=== PATIENT | female | born 1960 | race Caucasian/White ===

== ENCOUNTER 2017-08-04 00:26 | Observation (INO) ==
[2017-08-04 01:15] LABS: Basophils # 0.1 K/mcL (0.0-0.2); Basophils % 0.8 %; Eosinophils # 0.2 K/mcL (0.0-0.6); Eosinophils % 3.3 %; Hematocrit 37.4 % (35.3-44.9); Hemoglobin 12.8 g/dL (11.5-15.4); Immature Granulocytes % 0.4 % (0-4); Lymphocytes % 40.3 %; Mean Corpuscular HGB Conc 34.2 g/dL (31.6-35.5); Mean Corpuscular Hemoglobin 31.1 pg (28.0-33.3); Mean Platelet Volume 9.7 fL (9.4-12.4); Monocytes # 0.5 K/mcL (0.0-1.3); Monocytes % 6.9 %; Neutrophils # 3.5 K/mcL (1.6-8.9); Platelet Count 245 K/mcL (140-400); Red Blood Count 4.11 M/mcL (3.82-4.97); Segmented Neutrophils % 48.3 %
[2017-08-04 01:26] LABS: BUN/Creatinine Ratio 12 (6-26); Blood Urea Nitrogen 12 mg/dL (7-20); Calcium 8.8 mg/dL (8.6-10.8); Carbon Dioxide 20 mEq/L (19-29); Chloride 110 mEq/L (98-109); Glucose 94 mg/dL (70-99); Osmolality,Calculated 290 (280-300); Potassium 3.5 mEq/L (3.5-4.5); Sodium 140 mEq/L (136-145); eGFR For African Americans > 60 (> 60); eGFR For Non-African Americans 59 (> 60)
--- NOTE | 2017-08-04 02:11 | Emergency Department Note ---
Disposition Clinical Impression: Elevated troponin, Chest pain Disposition: Admitted As Inpatient Chest Pain HPI - General Chief Complaint: ED Chest Pain Stated Complaint: "CP/Anxiety/ Shot Himself Yesterday" Time Seen by Provider: 08/04/17 02:09 Source: patient Limitations: no limitations Vital Signs Reviewed: Yes Nursing Notes Reviewed: Yes - History of Present Illness HPI Narrative: Mrs. cAosta, a 57yo female, presents from home for evaluation of chest pain. Onset one hour prior to arrival. Described as midsternal shortness with heaviness. Nonradiating. With mild dyspnea. No associated nausea or diaphoresis. Patient experienced his symptoms while sorting through her 's belongings; he committed suicide by gunshot 2 days ago. She is originally from the [facility] and here locally to help manage his belongings. Symptoms were unrelieved by 3 tablets nitroglycerine at home. Patient is unsure how many minutes between tablets. PMH: Congestive heart failure, CAD without ACS, hyperlipidemia, hypothyroidism, GERD , COPD, anxiety, restless leg syndrome Severity scale (1-10): 8 - Related Data Home Medications Medication Instructions Recorded Confirmed Chantix 05/25/15 05/26/15 Aspirin 81 mg PO DAILY 05/26/15 05/26/15 Butalb/Acetaminophen/Caffeine 1 mg PO DAILY PRN 05/26/15 05/26/15 [Fioricet 50-300-40 mg Capsule] Carvedilol [Coreg] 3.125 mg PO BIDWM 05/26/15 05/26/15 Citalopram Hydrobromide [Celexa] 20 mg PO DAILY 05/26/15 05/26/15 Digoxin [Lanoxin] 0.125 mg PO DAILY 05/26/15 05/26/15 Gabapentin [Neurontin] 900 mg PO HS 05/26/15 05/26/15 LORazepam [Ativan] 0.25 mg PO DAILY 05/26/15 05/26/15 Levalbuterol Neb [Xopenex Neb] 45 inh PO 4XW PRN 05/26/15 05/26/15 Lipitor 10 mg PO DAILY 05/26/15 05/26/15 Methocarbamol [Robaxin] 750 mg PO Q8HR 05/26/15 05/26/15 Omeprazole [PriLOSEC] 20 mg PO DAILY 05/26/15 05/26/15 Ondansetron [Zofran] 4 mg PO Q4HR PRN 05/26/15 05/26/15 Ropinirole [Requip] 3 mg PO DAILY 05/26/15 05/26/15 Sucralfate [Carafate] 1 gm PO BID 05/26/15 05/26/15 Tiotropium [Spiriva] 18 inh PO DAILY 05/26/15 05/26/15 Torsemide [Demadex] 10 mg PO DAILY PRN 05/26/15 05/26/15 Levothyroxine Sodium [Tirosint] 50 mcg PO DAILY 08/04/17 08/04/17 Previous Rx's Medication Instructions Recorded Lisinopril [Zestril] 2.5 mg PO DAILY #30 tablet 05/26/15 Allergies Allergy/AdvReac Type Severity Reaction Status Date / Time acetaminophen [From Vicodin] Allergy Migraine Verified 05/25/15 10:40 Amoxicillin [From Augmentin] Allergy Diarrhea Verified 05/25/15 10:40 cephalexin [From Keflex] Allergy Hives Verified 05/25/15 10:40 clavulanic acid Allergy Diarrhea Verified 05/25/15 10:40 [From Augmentin] codeine Allergy Abdominal Verified 05/25/15 10:40 Pain hydrocodone [From Vicodin] Allergy Migraine Verified 05/25/15 10:40 levofloxacin [From Levaquin] Allergy Diarrhea Verified 05/25/15 10:40 Sulfa (Sulfonamide Allergy Hives Verified 05/25/15 10:40 Antibiotics) Tetracycline Allergy Hives Verified 05/25/15 10:40 NSAIDS (Non-Steroidal AdvReac See Verified 08/29/15 03:43 Anti-Inflamma Comments Opioids - Morphine Analogues AdvReac Rash Verified 05/25/15 10:40 emycin Allergy Abdominal Uncoded 05/25/15 10:40 Pain tape Allergy Rash Uncoded 05/25/15 10:40 All systems ED: reviewed and negative except as stated. Review of Systems: As Per HPI Chest Pain PMH - Past Medical History Medical history: Reports: arthritis, cancer, CHF, COPD, fibromyalgia, GERD, hyperlipidemia, hypertension, migraine, thyroid disease Reports: Other (Mitral regurgitation) Surgical history: Reports: appendectomy, breast surgery, , cancer surgery, cholecystectomy, hysterectomy Psychiatric history: Reports: anxiety, ADHD, depression - Social History Smoking Status: Light tobacco smoker Alcohol use: Reports: none Drug use: Reports: none Physical Exam Vital Signs Reviewed General: Patient is alert, oriented, and in moderate distress; she is clutching her chest and tearful as she begins discussing her without prompting. HEENT: No facial asymmetry. Head is normocephalic and atraumatic. PERRL, EOMI. mucosa moist. Trachea midline. Cardiovascular: Heart regular rate and rhythm without clicks, rubs, gallops, or murmurs. No JVD. PMI nondisplaced. Pedal edema. Bilateral radial and posterior tibial pulses 2/44. Respiratory: Symmetric chest rise with poor respiratory effort. Prolonged expiratory phase. Bilateral breath sounds are clear without wheezing, crackles , or rhonchi. Abdomen: Bowel sounds present normoactive x-4 quadrants. Abdomen is soft, nondistended, and nontender. Skin: Warm, dry, intact. Psych: Patient is tearful and affect is appropriate for situation. - General Limitations: no limitations General appearance: alert, in no apparent distress Course Course Narrative: Patient's history and story are concerning for ACS. Perform chest pain workup. EKG does not show any ST changes. Troponin is elevated at 0.05. She has no history of kidney disease and has normal renal function on lab work today. Chest x-ray is unremarkable. Will provide patient with her home medications as well as provide aspirin and Lovenox. After discussing the situation with the patient, she agrees to admission for continued evaluation and management. I discussed the patient with the admitting hospitalist, Dr. Rodriguez who agrees to accept the patient. Vital Signs Temperature 97.6 F 08/04/17 00:29 Pulse Rate 73 08/04/17 00:29 Respiratory Rate 20 08/04/17 00:29 Blood Pressure 123/69 08/04/17 00:29 O2 Sat by Pulse Oximetry 98 08/04/17 00:29 Temperature 98.1 F 08/04/17 03:29 Pulse Rate 63 08/04/17 03:29 Respiratory Rate 14 08/04/17 03:29 Blood Pressure 117/62 08/04/17 03:29 O2 Sat by Pulse Oximetry 96 08/04/17 03:29 Oxygen Delivery Oxygen Delivery Room Air Chest Pain - Lab Data Lab results reviewed: Yes I reviewed the patient's lab results. Result diagrams: 08/04/17 01:01 08/04/17 01:01 Lab Results 08/04/17 08/04/17 08/04/17 Range/Units 01:01 01:01 01:01 WBC 7.3 (4.3-11.1) K/mcL RBC 4.11 (3.82-4.97) M/mcL Hgb 12.8 (11.5-15.4) g/dL Hct 37.4 (35.3-44.9) % MCV 91.0 (83.0-100.0) fL MCH 31.1 (28.0-33.3) pg MCHC 34.2 (31.6-35.5) g/dL RDW 13.0 (11.5-14.5) % Plt Count 245 (140-400) K/mcL MPV 9.7 (9.4-12.4) fL Immature Gran % 0.4 (0-4) % Seg Neutrophils % 48.3 % Lymphocytes % 40.3 % Monocytes % 6.9 % Eosinophils % 3.3 % Basophils % 0.8 % Neutrophils # 3.5 (1.6-8.9) K/mcL Lymphocytes # 3.0 (0.6-4.6) K/mcL Monocytes # 0.5 (0.0-1.3) K/mcL Eosinophils # 0.2 (0.0-0.6) K/mcL Basophils # 0.1 (0.0-0.2) K/mcL Sodium 140 (136-145) mEq/L Potassium 3.5 (3.5-4.5) mEq/L Chloride 110 H (98-109) mEq/L Carbon Dioxide 20 (19-29) mEq/L BUN 12 (7-20) mg/dL Creatinine 0.97 (0.57-1.11) mg/dL Est GFR ( Amer) > 60 (> 60) Est GFR (Non-Af Amer) 59 L (> 60) BUN/Creatinine Ratio 12 (6-26) Glucose 94 (70-99) mg/dL Calculated Osmolality 290 (280-300) Calcium 8.8 (8.6-10.8) mg/dL Troponin I 0.05 H* (0-0.03) ng/mL - Radiology Data Radiology results reviewed: Yes I reviewed the patient's radiology results. - EKG Data EKG attestation: Yes I reviewed and interpreted this EKG. EKG results narrative: EKG dated 04 August at 00:46 interpreted as sinus rhythm with rate of 70. Normal intervals. Normal axis. T-wave flattening in precordial leads not present on comparative EKG. Isolated T-wave inversion in V1 present on comparative EKG. Compared to previous dated 08/18/2015 showing sinus bradycardia; no acute ischemic changes of comparison. Heart Score - Score History: Highly Suspicious EKG: Non Specific repolarisation Disturbance Age: 45-65 Risk Factors: Equal/Greater than 3 risk factor or history of atherosclerotic disease Troponin: 1-3x normal limit HEART Score Total: 7 Attestation Statement - Attestation Attestation: I, Derrick Bertrand MD, personally evaluated this patient and discussed their management with the resident physician. I reviewed the resident's note and agree with the documented findings, medical decision making, and plan of care. 57-year-old female presents to the emergency department with a complaint of substernal and left-sided chest pain that started about an hour prior to arrival. She describes the pain as a dull pressure ache in her chest. The pain radiates to the left arm. She admits to some shortness of breath and diaphoresis with the pain. She denies any prior history of DE does have a history of heart problems. Patient has been under a lot of stress because she states her committed suicide 2 days ago. On examination patient is a well-developed well-nourished well-appearing female in no acute distress. She is alert and oriented 3. There is no cyanosis or diaphoresis. There is some tenderness to palpation over the anterior chest wall. Breath sounds are clear and equal bilaterally. Heart regular rate and rhythm. Abdomen is soft and nontender with normal bowel sounds. EKG shows a normal sinus rhythm with nonspecific T-wave changes. No acute ST elevations or depressions. Chest x-ray negative. Labs reviewed. Troponin 0.05. The hospitalist, Dr. Rordiguez, was consulted and accepted admission of the patient.
[2017-08-04] MEDS ORDERED: Aspirin 81 MG TAB.CHEW PO ONE (02:19)
[2017-08-04] MEDS ORDERED: *HR* HYDROmorphone (PF) 1 MG/ML SYRINGE IVP ONE (02:19)
[2017-08-04] MEDS ORDERED: *HR* Enoxaparin 80 MG/0.8 ML SYRINGE SQ STA (02:19)
[2017-08-04] MEDS: Nitroglycerin 0.4 MG TAB.SUBL SL PRN ×3 (02:43→18:41)
[2017-08-04] MEDS: *HR* LORazepam 1 MG TABLET PO ONE ×2 (02:43→03:45)
[2017-08-04] MEDS ORDERED: Naloxone 0.4 MG/ML INJ IVP PRN (03:00)
--- NOTE | 2017-08-04 03:22 | Internal Med History&Physical ---
Date of Encounter: 08/04/17 Time of Encounter: 03:19 Assessment and Plan (1) Chest pain Current visit: Yes Status: Acute Patient has no history of CAD, she had left heart catheterization in 05/2015 which reported the following; left main, left anterior descending, 1st diagonal , circumflex, 1st marginal, left PDA, right coronary, right PDA arteries were all angiographically free of disease, she now comes in with chest pain in the setting of recent awful news of her 's suicide and , EKG was unchanged, troponin was slightly elevated, there is concern here for stress cardiomyopathy based on her history, we will cycle troponin, check 2D echo was wall motion abnormalities and proceed from there Qualifiers: Chest pain type: precordial pain Qualified Code(s): R07.2 - Precordial pain (2) Elevated troponin Current visit: Yes Status: Acute since 2014 she has had troponin of 0.04 and now has 0.05, which is very marginal elevation, could be, will trend and follow Echo (3) Hypertension Current visit: Yes Status: Chronic normotensive on presentation, will continue her home antihypertensives and monitor BP Qualifiers: Hypertension type: essential hypertension Qualified Code(s): I10 - Essential (primary) hypertension (4) COPD (chronic obstructive pulmonary disease) Current visit: Yes Status: Chronic stable, will do PRN nebs in addition to her tiotropium, Qualifiers: COPD type: emphysema Emphysema type: panlobular Qualified Code(s): J43.1 - Panlobular emphysema (5) GERD (gastroesophageal reflux disease) Current visit: Yes Status: Chronic continue PPI Qualifiers: Esophagitis presence: without esophagitis Qualified Code(s): K21.9 - Gastro -esophageal reflux disease without esophagitis (6) Hypothyroidism Current visit: Yes Status: Chronic continue home synthroid dosage Qualifiers: Hypothyroidism type: acquired Qualified Code(s): E03.9 - Hypothyroidism, unspecified (7) Major depression Current visit: Yes Status: Chronic baseline depression which is being made worse with the suicide and of her , she is not suicidal or homicidal, when offered pastoral and psychiatry services she opted for pastoral, we will get that for her and continue her home regimen Qualifiers: Major depression recurrence: recurrent Active/Remission status: currently active Major depression episode severity: moderate Qualified Code(s): F33.1 - Major depressive disorder, recurrent, moderate Internal Medicine - H&P: HPI Chief complaint: Chest pain Admitted From: Emergency Dept Plans for Post Hospital Care: Home History of present illness: Ms. Acosta is a 57 year old female with a history of cardiomyopathy with LVEF of 35% with [facility] finding of clean coronaries in 2015 comes in with chest pain. She reported that she was at rest in a chair prior to presentation when she began experiencing chest pain, substernal in location, pressure like in character and constant in timing, it was 8/10 in severity. Pain radiated to her left arm associated with tingling sensation in the hand. Chest pain was made worse by exertion but nothing could relieve it even after taking 3 sublingual tablets. She reports associated diaphoresis, lightheadedness, dyspnea, palpitations, and nausea. She however denies feeling of apprehension or vomiting. Of note her committed suicide on 08/01 by putting a gun in his mouth and blowing his head off, due to that she could not go for the viewing. Since this incident she has been extremely stressed/depressed as she keeps playing the scene over and over again. She was thinking about it this bharati when she had chest pain. She denies suicidal or homicidal ideation. No fever, chills, change in urinary or bowel habits. Past Med Surg Social Fam HX - Past Medical History Source: patient, old records reviewed Medical history: arthritis, cancer, CHF, COPD, fibromyalgia, GERD, hyperlipidemia, hypertension, migraine, thyroid disease Psychiatric history: anxiety, ADHD, depression - Past Surgical History Surgical History: appendectomy, breast surgery, , cancer surgery, cholecystectomy, hysterectomy - Social History Smoking Status: Light tobacco smoker Smokeless Tobacco Status: No Alcohol use: none Drug use: none Current living situation: Home - Independent, With Family Activity Level: Independent ambulation - Family History Mother Living Status: Hx Family Cardiac Disorders: Yes (chf) Hx Family Respiratory Disorders: Yes (copd) Hx Family Cancer: Yes (breast uterine) Internal Medicine - H&P: Meds Chantix 05/25/15 [History] Aspirin 81 mg PO DAILY 05/26/15 [History] Butalb/Acetaminophen/Caffeine [Fioricet 50-300-40 mg Capsule] 1 mg PO DAILY PRN 05/26/15 [History] Carvedilol [Coreg] 3.125 mg PO BIDWM 05/26/15 [History] Citalopram Hydrobromide [Celexa] 20 mg PO DAILY 05/26/15 [History] Digoxin [Lanoxin] 0.125 mg PO DAILY 05/26/15 [History] Gabapentin [Neurontin] 900 mg PO HS 05/26/15 [History] LORazepam [Ativan] 0.25 mg PO DAILY 05/26/15 [History] Levalbuterol Neb [Xopenex Neb] 45 inh PO 4XW PRN 05/26/15 [History] Lipitor 10 mg PO DAILY 05/26/15 [History] Lisinopril [Zestril] 2.5 mg PO DAILY #30 tablet 05/26/15 [Rx] Methocarbamol [Robaxin] 750 mg PO Q8HR 05/26/15 [History] Omeprazole [PriLOSEC] 20 mg PO DAILY 05/26/15 [History] Ondansetron [Zofran] 4 mg PO Q4HR PRN 05/26/15 [History] Ropinirole [Requip] 3 mg PO DAILY 05/26/15 [History] Sucralfate [Carafate] 1 gm PO BID 05/26/15 [History] Tiotropium [Spiriva] 18 inh PO DAILY 05/26/15 [History] Torsemide [Demadex] 10 mg PO DAILY PRN 05/26/15 [History] Levothyroxine Sodium [Tirosint] 50 mcg PO DAILY 08/04/17 [History] 3 Allergy/AdvReac Type Severity Reaction Status Date / Time acetaminophen [From Vicodin] Allergy Migraine Verified 05/25/15 10:40 Amoxicillin [From Augmentin] Allergy Diarrhea Verified 05/25/15 10:40 cephalexin [From Keflex] Allergy Hives Verified 05/25/15 10:40 clavulanic acid Allergy Diarrhea Verified 05/25/15 10:40 [From Augmentin] codeine Allergy Abdominal Verified 05/25/15 10:40 Pain hydrocodone [From Vicodin] Allergy Migraine Verified 05/25/15 10:40 levofloxacin [From Levaquin] Allergy Diarrhea Verified 05/25/15 10:40 Sulfa (Sulfonamide Allergy Hives Verified 05/25/15 10:40 Antibiotics) Tetracycline Allergy Hives Verified 05/25/15 10:40 NSAIDS (Non-Steroidal AdvReac See Verified 08/29/15 03:43 Anti-Inflamma Comments Opioids - Morphine Analogues AdvReac Rash Verified 05/25/15 10:40 emycin Allergy Abdominal Uncoded 05/25/15 10:40 Pain tape Allergy Rash Uncoded 05/25/15 10:40 All Systems PM: A 10-system review of systems was performed and is negative for pertinent findings except as documented above in the HPI. - Constitutional Vitals: Temp Pulse Resp BP Pulse Ox 97.6 F 68 18 127/72 97 08/04/17 00:29 08/04/17 02:00 08/04/17 03:03 08/04/17 03:03 08/04/17 02:00 GENERAL: Adult female, sitting up in bed pulling on her hair, Alert, tearful, not in obvious pain or distress HEENT: NC/AT, EOMI, PERRLA, anicteric sclera, normal conjunctiva, supple, clear nares, moist mucous membranes, RESP: Lungs are clear to auscultation bilaterally, with good AE, no crackles or wheeze CARDIO: Normal heart sounds with RRR, no murmurs, no JVD, no ankle edema GI: Soft, full, no tenderness, no organomegaly felt, normal bowel sounds heard MUSCULOSKELETAL: Grossly normal movements bilaterally, no deformities noted, NEUROLOGIC: CN 2-12 intact grossly. No gross motor/sensory deficit appreciated, PSYCHIATRY: AAO x 3, she is tearful SKIN: no skin rash or ulcers noted Internal Med - H&P Results - Labs CBC & Chem 7: 08/04/17 01:01 08/04/17 01:01 - EKG Data -: EKG Interpreted by Myself EKG shows normal: sinus rhythm - EKG Data Prior EKG available for review: yes When compared to previous EKG: there is no significant change - Diagnostic Studies Chest x-ray Status: image reviewed by me
[2017-08-04] MEDS ORDERED: *HR* LORazepam 2 MG/ML VIAL IVP ONE (03:34)
[2017-08-04] MEDS: Tiotropium 18 MCG inhalation IH SCH (08:07)
[2017-08-04] MEDS: *HR* Heparin 5,000 UNIT/ML VIAL SQ SCH ×3 (08:53→20:36)
[2017-08-04] MEDS ORDERED: *HR* LORazepam 0.5 MG TABLET PO SCH (09:00)
[2017-08-04 09:16] LABS: Thyroid Stimulating Hormone 2.04 mcIU/mL (0.350-4.840)
[2017-08-04] MEDS: Aspirin 81 MG TAB.CHEW PO SCH (10:05)
[2017-08-04] MEDS: Methocarbamol 750 MG TABLET PO SCH ×2 (10:05→14:35)
[2017-08-04] MEDS: Sucralfate 1 GM TABLET PO SCH ×2 (10:05→20:36)
--- NOTE | 2017-08-04 13:38 | Internal Med Progress Note ---
Date of Encounter: 08/04/17 Time of Encounter: 09:00 - Assessment and plan (1) Chest pain at rest Current Visit: Yes Status: Acute Assessment and plan: Patient has no history of CAD, [facility] 05/2015 which showed left main, left anterior descending, 1st diagonal, circumflex, 1st marginal, left PDA, right coronary, right PDA arteries were all angiographically free of disease. Pt reports sudden onset left chest pain with radiation to left arm, left back after stress of witnessing her kill himself. EKG was unchanged, troponin was slightly elevated, however, she has chronically elevated troponin. Echo showed LVEF of 50%, indeterminate diastolic function, mild to moderate MR. Due to patient's increased risk factors for ACS including hypertension, tobacco abuse, hyperlipidemia, mitral regurgitation, COPD, I will order a stress test for morning. Patient has been asking for Dilaudid for chest pain. I have explained to her that this is not appropriate treatment for chest pain and that she may have aspirin and nitroglycerin. Chest pain is not reproducible with palpation, deep inspiration, or movement. Continue telemetry Aspirin nitroglycerin for chest pain monitor vital signs (2) Mitral regurgitation Current Visit: No Status: Chronic Assessment and plan: Prior history. Echo 08/04/17 shows mild-moderate MR. Pt with 1/6 murmur LSB. Qualifiers: Cardiac valve disease etiology: etiology unspecified Qualified Code(s): I34.0 - Nonrheumatic mitral (valve) insufficiency (3) Tobacco abuse Current Visit: No Status: Chronic Assessment and plan: Pt denies interest in smoking cessation. (4) COPD (chronic obstructive pulmonary disease) Current Visit: Yes Status: Chronic Assessment and plan: Patient is chronic smoker. Lungs are clear diminished. Patient is not requiring supplemental oxygen. Room air sats anywhere from 92-96%. No acute exacerbation at this time. Continue home medications Oxygen as needed, titrate as needed. Qualifiers: COPD type: emphysema Emphysema type: panlobular Qualified Code(s): J43.1 - Panlobular emphysema (5) GERD (gastroesophageal reflux disease) Current Visit: Yes Status: Chronic Assessment and plan: Chronic. Continue home medications. Qualifiers: Esophagitis presence: without esophagitis Qualified Code(s): K21.9 - Gastro -esophageal reflux disease without esophagitis (6) Major depression Current Visit: Yes Status: Chronic Assessment and plan: Prior history of depression. Currently taking Celexa. Patient witnessed her fatally shoot himself. Patient denies suicidal or homicidal ideations, she denies plans to harm herself or others. She denies feeling helpless, hopeless, or as if she will be better off . I called [facility] and discussed this patient with staff there. Staff informs me that it would be best served if patient were seen here by psychosocial rehabilitation counselor and given resources. He states she is going to move to [place] in September. She has also requested to speak with the hospital back roller. Qualifiers: Major depression recurrence: recurrent Active/Remission status: currently active Major depression episode severity: moderate Qualified Code(s): F33.1 - Major depressive disorder, recurrent, moderate (7) DVT prophylaxis Current Visit: Yes Status: Acute Assessment and plan: Heparin subcutaneous 5000 mg every 8 hours - Time Spent With Patient less than 15 minutes - Subjective Interval history: Pt was seen and assessed at 0900. Pt was alert and awake, oriented, slow to respond, and took several lengthy cell phone calls during multiple attempts to assess her. Pt reports chest pain in left chest with radiation to left arm and left scapula area. Pt eating breakfast and rates pain 7/10 and requests dilaudid. She reports nausea, diaphoresis and SOB last night, these symptoms have resolved. Pt denies SI/HI, denies feeling helpless/hopeless, or like she would be better off . She denies plan to harm herself or others. She is slow to respond and appears to have poor table manners, shoving large quantities of food into her nouth and letting it fall out as she is talking to me. I have discussed her with [facility] nurse who suggests that SW see pt and offer resources. - Constitutional Vitals: Temp Pulse Resp BP Pulse Ox 97.6 F 58 16 108/61 96 08/04/17 11:05 08/04/17 11:05 08/04/17 11:05 08/04/17 11:05 08/04/17 11:05 General appearance: Present: A&O X 3, no acute distress, answers questions appropriately - Head Head exam: Present: atraumatic, normocephalic - Eye Eye exam: Present: EOMI, normal appearance, conjuntiva pink, sclera anicteric - ENT ENT exam: Present: mucous membranes moist, normal exam, normal external ear exam - Respiratory Respiratory exam: Present: CTAB. Absent: accessory muscle use, decreased breath sounds, rales, respiratory distress, rhonchi, wheezes - Cardiovascular Cardiovascular exam: Present: RRR, +S1, +S2. Absent: diastolic murmur, gallop, rubs, systolic murmur - GI/Abdominal GI/Abdominal exam: Present: normal bowel sounds, soft. Absent: distended, hepatomegaly, tenderness - Extremities Exam Extremities exam: Present: normal capillary refill, normal inspection, warm, radial pulses palpable and symmetrical. Absent: calf tenderness, cyanotic, pedal edema, tenderness - Neurological Exam Neurological exam: Present: alert, oriented X3, no focal deficits. Absent: altered, facial droop, speech deficit - Skin Skin exam: Present: dry, intact, normal color, warm. Absent: rash Internal Medicine: Result - Labs CBC & Chem 7: 08/04/17 01:01 08/04/17 01:01 Labs: Cardiac Enzymes 08/04/17 Range/Units 08:16 Troponin I 0.04 H* (0-0.03) ng/mL - Impressions Impressions Echocardiogram 08/04/17 02:58 Impressions: LVEF 50%. Normal LV chamber size, wall thickness and low normal function. Indeterminate diastolic function. Tissue Doppler not performed. Normal right ventricular structure and function. Mild-moderate mitral regurgitation. No evidence of pulmonary hypertension. Left Ventricular Wall Motion: Rest Echo Findings All wall segments showed normal motion. Findings: Study Quality * Technically adequate exam. ECG Findings * Normal sinus rhythm. Left Ventricle * LVEF 50%. * Normal LV chamber size, wall thickness and low normal function. * Indeterminate diastolic function. Tissue Doppler not performed. Right Ventricle * Normal right ventricular structure and function. Left Atrium * Moderately dilated left atrium. Right Atrium * Mildly dilated right atrium. Aortic Valve * Trileaflet aortic valve with normal function. * No aortic regurgitation. * No aortic stenosis. Mitral Valve * Normal mitral valve structure. * Mild-moderate mitral regurgitation. * No mitral stenosis. Tricuspid Valve * Normal tricuspid valve structure and function. * Trace tricuspid regurgitation. * No evidence of pulmonary hypertension. Pulmonic Valve * Normal pulmonic valve structure and function. * Trace pulmonic regurgitation. Aorta * Normally sized aortic root. Pericardium * The pericardium appears normal. IVC * Normal IVC dimensions and inspiratory collapse. Pulmonary Artery * Normal visualized portions of the main pulmonary artery. Consult Discharge Plan - Plan Referrals: Jose Horton MD [Primary Care Provider] -
[2017-08-04 14:43] LABS: Hemoglobin A1C 4.8 %
[2017-08-04] MEDS ORDERED: Gabapentin 300 MG CAPSULE PO SCH (21:00)
[2017-08-05] MEDS: Methocarbamol 750 MG TABLET PO SCH ×2 (00:17→11:16)
[2017-08-05 01:39] LABS: Basophils % 0.7 %; Eosinophils # 0.3 K/mcL (0.0-0.6); Eosinophils % 4.8 %; Hematocrit 37.2 % (35.3-44.9); Hemoglobin 12.3 g/dL (11.5-15.4); Immature Granulocytes % 0.2 % (0-4); Immature Platelets 4.2 % (1.1-6.1); Lymphocytes # 2.6 K/mcL (0.6-4.6); Lymphocytes % 45.4 %; Mean Corpuscular HGB Conc 33.1 g/dL (31.6-35.5); Mean Corpuscular Hemoglobin 30.7 pg (28.0-33.3); Mean Corpuscular Volume 92.8 fL (83.0-100.0); Monocytes # 0.4 K/mcL (0.0-1.3); Monocytes % 7.1 %; Neutrophils # 2.4 K/mcL (1.6-8.9); Platelet Count 217 K/mcL (140-400); Red Blood Count 4.01 M/mcL (3.82-4.97); Red Cell Distribution Width 12.8 % (11.5-14.5); Segmented Neutrophils % 41.8 %
[2017-08-05 01:53] LABS: BUN/Creatinine Ratio 12 (6-26); Blood Urea Nitrogen 12 mg/dL (7-20); Calcium 8.4 mg/dL (8.6-10.8); Carbon Dioxide 22 mEq/L (19-29); Chloride 112 mEq/L (98-109); Glucose 109 mg/dL (70-99); Osmolality,Calculated 290 (280-300); Sodium 140 mEq/L (136-145); eGFR For African Americans > 60 (> 60); eGFR For Non-African Americans 56 (> 60)
[2017-08-05 01:54] LABS: Chol/HDL Ratio 3.7 (0-4.9)
[2017-08-05] MEDS ORDERED: Regadenoson 0.4 MG/5 ML SYRINGE IVP ONE (06:19)
[2017-08-05] MEDS: *HR* Heparin 5,000 UNIT/ML VIAL SQ SCH (06:22)
[2017-08-05] MEDS: Tiotropium 18 MCG inhalation IH SCH (07:42)
[2017-08-05 11:01] VITALS: BP 97/61
[2017-08-05] MEDS: Aspirin 81 MG TAB.CHEW PO SCH (11:16)
[2017-08-05] MEDS: Sucralfate 1 GM TABLET PO SCH (11:16)
--- NOTE | 2017-08-05 14:06 | Discharge Summary ---
Date of Encounter: 08/05/17 Time of Encounter: 12:30 - Discharge Diagnosis (1) Chest pain at rest Priority: Primary Status: Acute Comments: Patient has no history of CAD, [facility] 05/2015 which showed left main, left anterior descending, 1st diagonal, circumflex, 1st marginal, left PDA, right coronary, right PDA arteries were all angiographically free of disease. Pt reports sudden onset left chest pain with radiation to left arm, left back after stress of witnessing her kill himself. EKG was unchanged, troponin was slightly elevated, however, she has chronically elevated troponin. Echo showed LVEF of 50%, indeterminate diastolic function, mild to moderate MR. Due to patient's increased risk factors for ACS including hypertension, tobacco abuse, hyperlipidemia, mitral regurgitation, COPD, stress test was ordered. Patient has been asking for Dilaudid for chest pain. I have explained to her that this is not appropriate treatment for chest pain and that she may have aspirin and nitroglycerin. Chest pain is not reproducible with palpation, deep inspiration, or movementStress test completed today. Patient had chest discomfort during the study. Stress showed small sized, mild intensity, fixed apical septal defect. Perfusion is worse on rest imaging and wall motion is normal, these findings are consistent with artifact. Perfusion imaging was negative for ischemia or infarct. Pt denies chest pain this am during assessment. s1s2 heard, RRR. No gallops, clicks, or rubs. Chest is most likely due to anxiety and stress, also I feel that there might be a drug seeking component since she asked me multiple times for dilaudid, stating "it's the only thing that works for my chest pain." (2) Mitral regurgitation Priority: Secondary Status: Chronic Comments: Prior history. Echo 08/04/17 shows mild-moderate MR. Pt with 1/6 murmur LSB. Follow up with cardiology outpatient for evaluation and treatment . Qualifiers: Cardiac valve disease etiology: etiology unspecified Qualified Code(s): I34.0 - Nonrheumatic mitral (valve) insufficiency (3) Tobacco abuse Priority: Secondary Status: Chronic Comments: I attempted to discuss smoking cessation again today, pt is not interested in quitting. (4) COPD (chronic obstructive pulmonary disease) Priority: Secondary Status: Chronic Comments: Patient is a chronic smoker. Lungs are clear and diminished. Patient is not requiring supplemental oxygen. Room air sats anywhere from 92-96%. No acute exacerbation at this time. Continue home medications Qualifiers: COPD type: emphysema Emphysema type: panlobular Qualified Code(s): J43.1 - Panlobular emphysema (5) GERD (gastroesophageal reflux disease) Priority: Secondary Status: Chronic Qualifiers: Esophagitis presence: without esophagitis Qualified Code(s): K21.9 - Gastro -esophageal reflux disease without esophagitis (6) Major depression Priority: Secondary Status: Chronic Comments: Prior history of depression. Currently taking Celexa. Patient witnessed her fatally shoot himself. Patient denies suicidal or homicidal ideations, she denies plans to harm herself or others. She denies feeling helpless, hopeless, or as if she will be better off . I called [facility] and discussed this patient with staff there. Staff informs me that it would be best if patient were seen here by outreach and education social worker and given resources. He states she is going to move to [place] in September. She has also requested to speak with the hospital supervisor contingents. Qualifiers: Major depression recurrence: recurrent Active/Remission status: currently active Major depression episode severity: moderate Qualified Code(s): F33.1 - Major depressive disorder, recurrent, moderate (7) DVT prophylaxis Priority: Secondary Status: Acute Comments: Heparin subcutaneous 5000 mg every 8 hours - Discharge Medications Home Medications: Varenicline Tartrate [Chantix] 1 tab PO AD #0 05/25/15 [History] Aspirin 81 mg PO DAILY 05/26/15 [History] Atorvastatin [Lipitor] 10 mg PO HS #0 05/26/15 [History] Butalb/Acetaminophen/Caffeine [Fioricet 50-300-40 mg Capsule] 1 mg PO DAILY PRN 05/26/15 [History] Carvedilol [Coreg] 3.125 mg PO BIDWM 05/26/15 [History] Citalopram Hydrobromide [Celexa] 20 mg PO DAILY 05/26/15 [History] Digoxin [Lanoxin] 0.125 mg PO DAILY 05/26/15 [History] LORazepam [Ativan] 0.25 mg PO DAILY 05/26/15 [History] Levalbuterol Neb [Xopenex Neb] 45 inh PO 4XW PRN 05/26/15 [History] Methocarbamol [Robaxin] 750 mg PO Q8HR 05/26/15 [History] Ondansetron [Zofran] 4 mg PO Q4HR PRN 05/26/15 [History] Ropinirole [Requip] 3 mg PO DAILY 05/26/15 [History] Levothyroxine Sodium [Tirosint] 50 mcg PO DAILY 08/04/17 [History] Lisinopril [Zestril] 2.5 mg PO DAILY tablet 08/05/17 [Rx] Omeprazole [PriLOSEC] 20 mg PO DAILY capsule. 08/05/17 [Rx] Sucralfate [Carafate] 1 gm PO BID tablet 08/05/17 [Rx] Tiotropium [Spiriva] 18 mcg IH DAILY inh 08/05/17 [Rx] Allergies/Adverse Reactions: 3 Allergy/AdvReac Type Severity Reaction Status Date / Time acetaminophen [From Vicodin] Allergy Migraine Verified 05/25/15 10:40 Amoxicillin [From Augmentin] Allergy Diarrhea Verified 05/25/15 10:40 cephalexin [From Keflex] Allergy Hives Verified 05/25/15 10:40 clavulanic acid Allergy Diarrhea Verified 05/25/15 10:40 [From Augmentin] codeine Allergy Abdominal Verified 05/25/15 10:40 Pain hydrocodone [From Vicodin] Allergy Migraine Verified 05/25/15 10:40 levofloxacin [From Levaquin] Allergy Diarrhea Verified 05/25/15 10:40 Sulfa (Sulfonamide Allergy Hives Verified 05/25/15 10:40 Antibiotics) Tetracycline Allergy Hives Verified 05/25/15 10:40 NSAIDS (Non-Steroidal AdvReac See Verified 08/29/15 03:43 Anti-Inflamma Comments Opioids - Morphine Analogues AdvReac Rash Verified 05/25/15 10:40 emycin Allergy Abdominal Uncoded 05/25/15 10:40 Pain tape Allergy Rash Uncoded 05/25/15 10:40 Procedures/tests Complete & Pending: Procedures Performed prior 72 hours Category Date Time Status NM claudia perf SPECT multi [NM] Routine Exams 08/04/17 13:37 Taken EV echocardiogram Routine Y 08/04/17 02:58 Completed SP pharm nuclear stress Routine Y 08/04/17 13:37 Completed Date of admission: 08/04/17 02:43 Primary care physician: Jose Horton MD Consults: 08/04/17 03:55 Consult to Pastoral Services [CONS] Routine Comment: 08/04/17 12:04 Consult to Salvationist [CONS] Routine Reason for SW Consult: resources for counseling Discharging clinician: Maribell Oliva Anticipated date of discharge: 08/05/17 - Patient Status Disposition: Home, Self-Care Condition: Good Functional capacity at discharge: independent ambulation Overall status at discharge: patient is back to baseline - Discharge Instructions Follow Up With: Jose Horton MD [Primary Care Provider] - Additional Instructions: Follow up with your PCP in the next 7-10 days Take your normal medications Return to the ER as needed for any other problems or concerns. Stop smoking Return to your normal activities as tolerated. - Diet and Activity Activity: as per physical therapy Diet: advance to your usual diet Interval History: Please see assessment and plan for hospital course. Hospital course: Ms. Acosta is a 57 year old female - Time Spent with Patient Total time spent providing and/or coordinating discharge services: Less than 30 minutes - Constitutional Vitals: Temp Pulse Resp BP Pulse Ox 97.7 F 67 16 97/61 93 08/05/17 11:00 08/05/17 11:00 08/05/17 11:00 08/05/17 11:00 08/05/17 11:00 General appearance: Present: A&O X 3, no acute distress, answers questions appropriately - Head Head exam: Present: atraumatic, normal inspection, normocephalic - Eye Eye exam: Present: normal appearance, conjuntiva pink, sclera anicteric - Neck Neck exam general surgery: Present: supple, trachea midline. Absent: lymphadenopathy, tenderness - Respiratory Respiratory exam: Present: CTAB. Absent: accessory muscle use, rales, rhonchi, wheezes - Cardiovascular Cardiovascular exam: Present: RRR, +S1, +S2. Absent: gallop, rubs - GI/Abdominal GI/Abdominal exam: Present: normal bowel sounds, soft, no peritoneal signs. Absent: distended, hepatomegaly, tenderness - Extremities Exam Extremities exam: Present: normal capillary refill, warm, radial pulses palpable and symmetrical. Absent: calf tenderness, cyanotic, pedal edema, tenderness - Neurological Exam Neurological exam: Present: alert, oriented X3, no focal deficits. Absent: pronater drift, facial droop, speech deficit - Skin Skin exam: Present: dry, intact, normal color, warm. Absent: rash
--- NOTE | 2017-08-10 09:41 | Electrocardiograph Report ---
[address] [place], [place] [address] Test Date: 2017-08-04 Pat Name: Linda Acosta Department: 103 Room: 3B Gender: F [employer] Tender: : 1960 Requested By: Derrick Bertrand Order Number: [id number] Reading MD: Callie Vargas Measurements Intervals [place] Rate: 71 P: 142 [place]: 167 QRS: 177 QRSD: 93 T: 188 QT: 400 QTc: 422 Interpretive Statements SINUS RHYTHM ARM LEADS REVERSED ATYPICAL ECG Electronically Signed On 08-10-2017 9:39:39 EDT by Callie Vargas
== END 2017-08-05 15:49 | disposition home or self-care (01) ==
LOC: EMEROO 00:26 → 3BNU 00:26
PROVIDERS: ADMIT Internal Medicine; ATTEND Registered Nurse

== ENCOUNTER 2017-11-18 03:46 | Observation (INO) ==
--- NOTE | 2017-11-18 03:58 | Emergency Department Note ---
Disposition Clinical Impression: Right arm weakness, Right leg weakness Disposition: Admitted As Inpatient Condition: Good Time of Disposition: 05:20 Neuro HPI - General Chief Complaint: ED Neuro Symptoms/Deficit Stated Complaint: Right Sided Weakness Time Seen by Provider: 11/18/17 03:57 Source: patient, EMS Mode of arrival: EMS Limitations: no limitations Nursing Notes Reviewed: Yes Vital Signs Reviewed: Yes - History of Present Illness HPI Narrative: Patient is a 57-year-old female past medical history of CHF, restless leg syndrome, hypertension, hyperlipidemia, previous TIA. She presents today via EMS due to right-sided weakness. She states that she had a TIA within the past week and was evaluated at an outside facility in [facility]. She denies that she was admitted for any further workup or care. She had presented at that time with right-sided weakness of the right upper and right lower extremities. She also notes that she has had drooling since. She does state that she has had some residual weakness of the right upper and right lower extremity as well over the past week. Tonight, the patient was in [facility] and she said that she had worsening of her right upper and right lower extremity weakness. She also says that she is having trouble forming words. Denies any other chest pain, shortness of breath, nausea, vomiting, fevers, abdominal pain , any other numbness, tingling, weakness besides right upper extremity right lower extremity. - Related Data Home Medications: Home Medications Medication Instructions Recorded Confirmed Varenicline Tartrate [Chantix 1 tab PO AD #0 05/25/15 08/04/17 Starting Month ARIAS] Aspirin 81 mg PO DAILY 05/26/15 08/04/17 Atorvastatin [Lipitor] 10 mg PO HS #0 05/26/15 08/04/17 Butalb/Acetaminophen/Caffeine 1 mg PO DAILY PRN 05/26/15 08/04/17 [Fioricet 50-300-40 mg Capsule] Carvedilol [Coreg] 3.125 mg PO BIDWM 05/26/15 08/04/17 Citalopram Hydrobromide [Celexa] 20 mg PO DAILY 05/26/15 08/04/17 Digoxin [Lanoxin] 0.125 mg PO DAILY 05/26/15 08/04/17 LORazepam [Ativan] 0.25 mg PO DAILY 05/26/15 08/04/17 Levalbuterol Neb [Xopenex Neb] 45 inh PO 4XW PRN 05/26/15 08/04/17 Methocarbamol [Robaxin] 750 mg PO Q8HR 05/26/15 08/04/17 Ondansetron [Zofran] 4 mg PO Q4HR PRN 05/26/15 08/04/17 Ropinirole [Requip] 3 mg PO DAILY 05/26/15 08/04/17 Levothyroxine Sodium [Tirosint] 50 mcg PO DAILY 08/04/17 08/04/17 Previous Rx's Medication Instructions Recorded Lisinopril [Zestril] 2.5 mg PO DAILY tablet 08/05/17 Omeprazole [PriLOSEC] 20 mg PO DAILY capsule. 08/05/17 Sucralfate [Carafate] 1 gm PO BID tablet 08/05/17 Tiotropium [Spiriva] 18 mcg IH DAILY inh 08/05/17 Sucralfate [Carafate] 1 gm PO QIDAC #20 tablet 08/26/17 Allergies/Adverse Reactions: Allergies Allergy/AdvReac Type Severity Reaction Status Date / Time acetaminophen [From Vicodin] Allergy Migraine Verified 11/18/17 03:48 Amoxicillin [From Augmentin] Allergy Diarrhea Verified 11/18/17 03:48 cephalexin [From Keflex] Allergy Hives Verified 11/18/17 03:48 clavulanic acid Allergy Diarrhea Verified 11/18/17 03:48 [From Augmentin] codeine Allergy Abdominal Verified 11/18/17 03:48 Pain hydrocodone [From Vicodin] Allergy Migraine Verified 11/18/17 03:48 levofloxacin [From Levaquin] Allergy Diarrhea Verified 11/18/17 03:48 Sulfa (Sulfonamide Allergy Hives Verified 11/18/17 03:48 Antibiotics) Tetracycline Allergy Hives Verified 11/18/17 03:48 adhesive AdvReac Rash Verified 11/18/17 06:17 NSAIDS (Non-Steroidal AdvReac See Verified 11/18/17 03:48 Anti-Inflamma Comments emycin Allergy Abdominal Uncoded 11/18/17 03:48 Pain tape Allergy Rash Uncoded 11/18/17 03:48 All systems ED: reviewed and negative except as stated. Constitutional: Denies: fever Cardiovascular: Denies: chest pain Respiratory: Denies: dyspnea Gastrointestinal: Denies: abdominal pain, nausea, vomiting, diarrhea Genitourinary: Denies: urgency, dysuria, frequency, hematuria Neurological: Reports: weakness. Denies: headache, numbness, paresthesias Past Medical History - Past Medical History Attestation: Yes The following information was validated with the patient. Source: patient Medical history: Reports: arthritis, cancer, CHF, COPD, fibromyalgia, GERD, hyperlipidemia, hypertension, migraine, thyroid disease Surgical history: Reports: appendectomy, breast surgery, , cancer surgery, cholecystectomy, hysterectomy Psychiatric history: Reports: anxiety, ADHD, depression - Social History Smoking Status: Former smoker Smokeless Tobacco Status: No Alcohol use: Reports: none Drug use: Reports: none Physical Exam - General Limitations: no limitations General appearance: alert, in no apparent distress - Head Head exam: atraumatic, normocephalic, normal inspection - Eye Eye exam: Present: normal appearance, PERRL, EOMI - ENT ENT exam: normal exam, normal oropharynx, mucous membranes moist - Neck Neck exam: Present: normal inspection, full ROM, trachea midline - Chest Chest inspection: Present: normal inspection, symmetric chest wall rise - Respiratory Respiratory exam: Present: normal lung sounds bilaterally - Cardiovascular Cardiovascular exam: Present: regular rate, normal rhythm, normal heart sounds - Abdominal Exam Abdominal exam: Present: soft, Non-Tender. Absent: tenderness, distention, guarding, rebound, rigidity - Extremities Exam Extremities exam: Present: full ROM. Absent: tenderness, pedal edema - Neurological Exam Neurological exam: Present: alert, oriented X3, CN II-XII intact, other (No signs of any facial droop or expressive or receptive aphasia. Patient has weakness and drift of the right upper and right lower extremity, however, when distracted she has full range of motion of the right upper and right lower extremities. No ataxia present on exam with [id number] testing.) - Psychiatric Psychiatric exam: Present: normal mood, flat affect - Skin Skin exam: Present: warm, dry, intact, normal color Course Course Narrative: Vitals within normal limits. Physical exam shows: No signs of any facial droop or expressive or receptive aphasia. Patient has weakness and drift of the right upper and right lower extremity, however, when distracted she has full range of motion of the right upper and right lower extremities. No ataxia present on exam with [id number] testing. Patient started slurring her words but when I distracted her or she became angry at anything, she spoke properly. She also stated that she cannot move her right arm at all, but then I saw her pulling off EKG leads with her right arm. When she saw me looking at her arm use she said "oh, I must be getting better." Nursing staff reported similar experiences with the patient throughout her entire stay. I do have a strong suspicion of conversion disorder. Basic blood work, chest x-ray, EKG, CT of the head. Chest x-ray negative for any acute cardio pulmonary process. Basic blood work showed no major lab abnormalities. Troponin negative. EKG shows normal sinus rhythm with no acute ST changes. Awaiting CT the head. 05:39 CT the head negative. When I told the patient her results, she now states that her right upper and right lower extremity weakness has completely resolved. Physical exam shows no focal neuro deficits, NIH 0. In chart review, patient has not had any MRI/MRA of the head or neck, carotid Dopplers. Will admit the patient for TIA workup. Chest X-Ray 11/18/17 04:01 IMPRESSION: No acute findings. D/ / Eladio Peraza / Eladio Peraza Interpreting Provider: Eladio Peraza Vital Signs Temperature 98.3 F 11/18/17 04:03 Pulse Rate 64 11/18/17 04:03 Respiratory Rate 16 11/18/17 04:03 Blood Pressure 107/59 11/18/17 04:03 O2 Sat by Pulse Oximetry 98 11/18/17 04:03 Temperature 98.3 F 11/18/17 04:03 Pulse Rate 66 11/18/17 06:01 Respiratory Rate 16 11/18/17 06:01 Blood Pressure 95/52 11/18/17 06:01 O2 Sat by Pulse Oximetry 94 11/18/17 06:01 Oxygen Delivery Oxygen Delivery Room Air Neuro Symptoms/Deficit - MDM Narrative Medical decision making narrative: Vitals within normal limits. Physical exam shows: No signs of any facial droop or expressive or receptive aphasia. Patient has weakness and drift of the right upper and right lower extremity, however, when distracted she has full range of motion of the right upper and right lower extremities. No ataxia present on exam with [id number] testing. Patient started slurring her words but when I distracted her or she became angry at anything, she spoke properly. She also stated that she cannot move her right arm at all, but then I saw her pulling off EKG leads with her right arm. When she saw me looking at her arm use she said "oh, I must be getting better." Nursing staff reported similar experiences with the patient throughout her entire stay. I do have a strong suspicion of conversion disorder. Basic blood work, chest x-ray, EKG, CT of the head. Chest x-ray negative for any acute cardio pulmonary process. Basic blood work showed no major lab abnormalities. Troponin negative. EKG shows normal sinus rhythm with no acute ST changes. Awaiting CT the head. 05:39 CT the head negative. When I told the patient her results, she now states that her right upper and right lower extremity weakness has completely resolved. Physical exam shows no focal neuro deficits, NIH 0. In chart review, patient has not had any MRI/MRA of the head or neck, carotid Dopplers. Will admit the patient for TIA workup. - Medical Records Medical records reviewed: Yes I reviewed the patient's medical records. - Lab Data Lab results reviewed: Yes I reviewed the patient's lab results. Result diagrams: 11/18/17 04:52 11/18/17 04:52 Lab Results 11/18/17 11/18/17 11/18/17 Range/Units 04:52 04:52 04:52 WBC 8.1 (4.3-11.1) K/mcL RBC 4.13 (3.82-4.97) M/mcL Hgb 12.7 (11.5-15.4) g/dL Hct 37.9 (35.3-44.9) % MCV 91.8 (83.0-100.0) fL MCH 30.8 (28.0-33.3) pg MCHC 33.5 (31.6-35.5) g/dL RDW 13.2 (11.5-14.5) % Plt Count 254 (140-400) K/mcL MPV 10.1 (9.4-12.4) fL Immature Gran % 0.4 (0-4) % Seg Neutrophils % 42.1 % Lymphocytes % 43.2 % Monocytes % 9.3 % Eosinophils % 4.3 % Basophils % 0.7 % Neutrophils # 3.4 (1.6-8.9) K/mcL Lymphocytes # 3.5 (0.6-4.6) K/mcL Monocytes # 0.8 (0.0-1.3) K/mcL Eosinophils # 0.4 (0.0-0.6) K/mcL Basophils # 0.1 (0.0-0.2) K/mcL PT 11.5 (9.4-12.1) Seconds INR 1.1 APTT 33.8 (26.0-36.0) Seconds Sodium 138 (136-145) mEq/L Potassium 3.7 (3.5-5.1) mEq/L Chloride 112 H (98-107) mEq/L Carbon Dioxide 20 L (23-29) mEq/L BUN 12 (6-20) mg/dL Creatinine 0.78 (0.60-1.20) mg/dL Est GFR ( Amer) > 60 (> 60) Est GFR (Non-Af Amer) > 60 (> 60) BUN/Creatinine Ratio 15 (6-26) Glucose 93 (70-105) mg/dL Calculated Osmolality 285 (280-300) Calcium 8.5 L (8.6-10.3) mg/dL Troponin I (< 0.04) ng/mL 11/18/17 Range/Units 04:52 WBC (4.3-11.1) K/mcL RBC (3.82-4.97) M/mcL Hgb (11.5-15.4) g/dL Hct (35.3-44.9) % MCV (83.0-100.0) fL MCH (28.0-33.3) pg MCHC (31.6-35.5) g/dL RDW (11.5-14.5) % Plt Count (140-400) K/mcL MPV (9.4-12.4) fL Immature Gran % (0-4) % Seg Neutrophils % % Lymphocytes % % Monocytes % % Eosinophils % % Basophils % % Neutrophils # (1.6-8.9) K/mcL Lymphocytes # (0.6-4.6) K/mcL Monocytes # (0.0-1.3) K/mcL Eosinophils # (0.0-0.6) K/mcL Basophils # (0.0-0.2) K/mcL PT (9.4-12.1) Seconds INR APTT (26.0-36.0) Seconds Sodium (136-145) mEq/L Potassium (3.5-5.1) mEq/L Chloride (98-107) mEq/L Carbon Dioxide (23-29) mEq/L BUN (6-20) mg/dL Creatinine (0.60-1.20) mg/dL Est GFR ( Amer) (> 60) Est GFR (Non-Af Amer) (> 60) BUN/Creatinine Ratio (6-26) Glucose (70-105) mg/dL Calculated Osmolality (280-300) Calcium (8.6-10.3) mg/dL Troponin I < 0.03 (< 0.04) ng/mL - Radiology Data Radiology results reviewed: Yes I reviewed the patient's radiology results. Head CT 11/18/17 03:59 IMPRESSION: No acute intracranial abnormality. If there ongoing clinical concern for stroke, recommend further evaluation with MRI. D/ / Eladio Peraza / Eladio Peraza Interpreting Provider: Eladio Peraza Chest X-Ray 11/18/17 04:01 IMPRESSION: No acute findings. D/ / Eladio Peraza / Eladio Peraza Interpreting Provider: Eladio Peraza - EKG Data EKG attestation: Yes I reviewed and interpreted this EKG. EKG results narrative: 11/18/2017 at 04:16. Normal sinus rhythm. Rate 61. NH 172. QRS 93. No acute ST elevation or depression. Normal axis. NIH Stroke Scale - Level of Consciousness LOC: Alert - LOC Questions LOC Questions: Answers both correctly - LOC Commands LOC Commands: Performs both correctly - Best Gaze Best Gaze: Normal - Visual Visual: No visual loss - Facial Palsy Facial Palsy: Normal - Motor Arms Motor Arm-Left: No drift for 10 seconds Motor Arm-Right: Drift, does NOT hit bed - Motor Legs Motor Leg-Left: No drift for 5 seconds Motor Leg-Right: Drift, does NOT hit bed - Limb Ataxia Limb Ataxia: Absent of affected limb too weak to perform exam - Sensory Sensory: Normal - Best Language Best Language: No aphasia - Dysarthria Dysarthria: Normal - Extinction and Inattention Extinction and Inattention: Normal - NIHSS Total Score NIHSS Total Score: 2 TPA Checklist - LKW: 3-4.5 hrs Add. Warnings/Precautions Patient/family understanding: The patient/family members have been counseled and understood the risk, benefit , and alternatives of treatment. Joel - Joel Situation: Demographics, MOA Background: Presenting Complaint, Relevant PMH, Meds, & Allergies Assessment: Vital Signs, Course and respsone to treatment, Exam Concerns, Patient/Family Expectation, Pertinant Lab Results, Outstanding Labs Recommendation: Barrier(s) to disposition, Recommendation based on pending studies, treatments, or consults SGale Report Given to: Dr. Shantanu Maldonado Repor Time: 06:20 Attestation Statement - Attestation Attestation: I examined this patient and my medical decision-making was reviewed with the Resident Physician. I agree with the documented findings, disposition and treatment plan as described except to the extent set forth below. Patient presents to the ED with a chief complaint of right-sided weakness. Patient states her symptoms started about a week ago. She was in the [facility] at that time. She states she went to an ER there and her symptoms resolved in about an hour. They said she had a TIA and sent her home. She states tonight she was at [facility] and this weakness increased. She has been having trouble holding her head up and drooling out of the right side of her mouth since last week. On examination she will not raise her right arm or leg. She is speaking normally. No facial droop. Plan. The patient's symptoms resolved at this time. The patient stated she could not move her right arm but she was able to raise it to her gown on. Patient was discharged last week from the ER in [place]. We will admit her here for further stroke/TIA workup.
[2017-11-18 04:59] LABS: Basophils # 0.1 K/mcL (0.0-0.2); Basophils % 0.7 %; Eosinophils # 0.4 K/mcL (0.0-0.6); Eosinophils % 4.3 %; Hematocrit 37.9 % (35.3-44.9); Hemoglobin 12.7 g/dL (11.5-15.4); Immature Granulocytes % 0.4 % (0-4); Lymphocytes # 3.5 K/mcL (0.6-4.6); Lymphocytes % 43.2 %; Mean Corpuscular HGB Conc 33.5 g/dL (31.6-35.5); Mean Corpuscular Hemoglobin 30.8 pg (28.0-33.3); Mean Corpuscular Volume 91.8 fL (83.0-100.0); Mean Platelet Volume 10.1 fL (9.4-12.4); Monocytes # 0.8 K/mcL (0.0-1.3); Monocytes % 9.3 %; Neutrophils # 3.4 K/mcL (1.6-8.9); Platelet Count 254 K/mcL (140-400); Red Blood Count 4.13 M/mcL (3.82-4.97); Red Cell Distribution Width 13.2 % (11.5-14.5); Segmented Neutrophils % 42.1 %
[2017-11-18 05:11] LABS: INR 1.1; Prothrombin Time 11.5 Seconds (9.4-12.1)
[2017-11-18 05:13] LABS: Activated Partial Thrombo Time 33.8 Seconds (26.0-36.0); BUN/Creatinine Ratio 15 (6-26); Blood Urea Nitrogen 12 mg/dL (6-20); Calcium 8.5 mg/dL (8.6-10.3); Carbon Dioxide 20 mEq/L (23-29); Chloride 112 mEq/L (98-107); Glucose 93 mg/dL (70-105); Osmolality,Calculated 285 (280-300); Potassium 3.7 mEq/L (3.5-5.1); Sodium 138 mEq/L (136-145); eGFR For African Americans > 60 (> 60); eGFR For Non-African Americans > 60 (> 60)
--- NOTE | 2017-11-18 09:35 | Internal Med History&Physical ---
<Gerson King - Last Filed: 11/18/17 09:28> Date of Encounter: 11/18/17 Time of Encounter: 09:29 Assessment and Plan (1) TIA (transient ischemic attack) Current visit: Yes Status: Acute 57-year-old female transferred to the emergency department from [facility] with strokelike symptoms that resolved on their own. Previous symptoms 1 week ago while in [facility], resolved on their own at that time too. No previous stroke history. - Denies history of previous strokes, atrial fibrillation or cardiac arrhythmia or known vascular disease. Previous smoker quit 2 years ago. - Head CT performed in the emergency department without acute findings. - Patient does have significant leg changing events, multiple stressors and this may be secondary to psychologic affect. Symptoms have resolved no significant risk factors for stroke at this time. Upon examination patient is interactive, speech appropriate neurologic exam without significant/concerning deficit. * Age less than 60, blood pressure 100/65 no history of hypertension, no clinical features of bilateral weakness, no speech impairment, short duration of symptoms. No history of diabetes. - Patient on aspirin 81 mg by mouth daily. Plan: - Continue cardiac monitoring and patient, consider risk factors for atrial fibrillation - Echocardiogram - Carotid Doppler - Lipid panel, thyroid function. - EKG reviewed no significance or acute findings - Given the recurrence of TIA like symptoms will ask neurology to evaluate the patient and give recommendations. - If all is negative patient may be able to discharge later today with close follow-up with PCP. Qualifiers: Qualified Code(s): G45.9 - Transient cerebral ischemic attack, unspecified (2) Diastolic CHF Current visit: Yes Status: Acute Stable. Patient euvolemic. Echocardiogram 08/04/2017 Impressions: LVEF 50%. Normal LV chamber size, wall thickness and low normal function. Indeterminate diastolic function. Tissue Doppler not performed. Normal right ventricular structure and function. Mild-moderate mitral regurgitation. No evidence of pulmonary hypertension. Patient had a nuclear stress test performed July 2017 -Perfusion imaging was negative for ischemia or infarct. Plan: - Continue aspirin, atorvastatin, Coreg, digoxin, lisinopril - 2 L fluid restriction, 2 g sodium restriction - Daily weights and strict intake and output monitoring Qualifiers: Qualified Code(s): I50.30 - Unspecified diastolic (congestive) heart failure (3) COPD (chronic obstructive pulmonary disease) Current visit: No Status: Chronic 57-year-old female with a past medical history of tobacco abuse and previous diagnosis of COPD. Current respiratory status stable, patient on room air. Plan: - Continue Spiriva - Continue Xopenex - Albuterol inhaler when necessary. Qualifiers: COPD type: emphysema Emphysema type: panlobular Qualified Code(s): J43.1 - Panlobular emphysema (4) Peptic ulcer disease Current visit: Yes Status: Acute Patient has recent diagnosis of peptic ulcer disease, continue home medications. (5) DVT prophylaxis Current visit: No Status: Acute Subcutaneous heparin daily Internal Medicine - H&P: HPI Chief complaint: Strokelike symptoms Admitted From: Home Plans for Post Hospital Care: Home History of present illness: Mrs. Acosta, 57-year-old female past medical history of CHF, restless leg syndrome, hypertension, hyperlipidemia, IBS, previous TIA (1 week ago) was brought to the emergency department via EMS after having strokelike symptoms at [facility]. She states that she was at [facility] taking care of personal business as her recently and she was clearing up financial issues as he used to work there. She states that she had sudden onset of right upper and lower extremity weakness or head rotated to the right and she had weakness and unable to pick it up with associated drooling. She states that the [employer] manager called EMS name Jimbo to the emergency department at which time her symptoms started to resolve and around. She states that she had very similar symptoms while in [facility] where she lives one week ago while at a casino. She states that she has had significant life stressors with the recent passing of her , difficulty with financial situations, clearing [id number] , life insurance and trying to sell her house here in [place]. She states that currently she feels well, symptoms that are still present are some mild weakness on her right upper and right lower extremity but she is hungry denies any drooling difficulty swallowing or any other concerning neurologic symptoms. She states prior to her last TIA one week ago she has never had strokelike symptoms. She denies any atrial fibrillation, heart issues other than her congestive heart failure. She has not changed or started any new medications. She has had previous tendon repair in her right foot and has a chronic numbness to her for digit on her right foot. She has a previous plate placed in her left wrist which gives her occasional discomfort and tingling in her left wrist. She states that her vision is well she never had any visual changes loss or double vision. She states that her vision is always been good. She does mention that she has had a recent diagnosis of peptic ulcer disease 2-3 months ago and has been on Protonix and is supposed to have a colonoscopy at [facility] in 1 month. She denies noticing any bleeding per rectum coughing or spitting up blood. She still has current abdominal discomfort associated with her peptic ulcer which she feels is exacerbated after eating food. She is requesting food at this time. Past Med Surg Social Fam HX - Past Medical History Medical history: arthritis, cancer, CHF, COPD, fibromyalgia, GERD, hyperlipidemia, hypertension, migraine, thyroid disease Psychiatric history: anxiety, ADHD, depression - Past Surgical History Surgical History: appendectomy, breast surgery, , cancer surgery, cholecystectomy, hysterectomy - Social History Smoking Status: Former smoker Smokeless Tobacco Status: No Alcohol use: none Drug use: none - Family History Mother Living Status: Hx Family Cardiac Disorders: Yes (chf) Hx Family Respiratory Disorders: Yes (copd) Hx Family Cancer: Yes (breast uterine) Internal Medicine - H&P: Meds Varenicline Tartrate [Chantix Starting Month ARIAS] 1 tab PO AD #0 05/25/15 [ History] Aspirin 81 mg PO DAILY 05/26/15 [History] Atorvastatin [Lipitor] 10 mg PO HS #0 05/26/15 [History] Butalb/Acetaminophen/Caffeine [Fioricet 50-300-40 mg Capsule] 1 mg PO DAILY PRN 05/26/15 [History] Carvedilol [Coreg] 3.125 mg PO BIDWM 05/26/15 [History] Citalopram Hydrobromide [Celexa] 20 mg PO DAILY 05/26/15 [History] Digoxin [Lanoxin] 0.125 mg PO DAILY 05/26/15 [History] LORazepam [Ativan] 0.25 mg PO DAILY 05/26/15 [History] Levalbuterol Neb [Xopenex Neb] 45 inh PO 4XW PRN 05/26/15 [History] Methocarbamol [Robaxin] 750 mg PO Q8HR 05/26/15 [History] Ondansetron [Zofran] 4 mg PO Q4HR PRN 05/26/15 [History] Ropinirole [Requip] 3 mg PO DAILY 05/26/15 [History] Levothyroxine Sodium [Tirosint] 50 mcg PO DAILY 08/04/17 [History] Lisinopril [Zestril] 2.5 mg PO DAILY tablet 08/05/17 [Rx] Omeprazole [PriLOSEC] 20 mg PO DAILY capsule. 08/05/17 [Rx] Sucralfate [Carafate] 1 gm PO BID tablet 08/05/17 [Rx] Tiotropium [Spiriva] 18 mcg IH DAILY inh 08/05/17 [Rx] Sucralfate [Carafate] 1 gm PO QIDAC #20 tablet 08/26/17 [Rx] 3 Allergy/AdvReac Type Severity Reaction Status Date / Time acetaminophen [From Vicodin] Allergy Migraine Verified 11/18/17 03:48 Amoxicillin [From Augmentin] Allergy Diarrhea Verified 11/18/17 03:48 cephalexin [From Keflex] Allergy Hives Verified 11/18/17 03:48 clavulanic acid Allergy Diarrhea Verified 11/18/17 03:48 [From Augmentin] codeine Allergy Abdominal Verified 11/18/17 03:48 Pain hydrocodone [From Vicodin] Allergy Migraine Verified 11/18/17 03:48 levofloxacin [From Levaquin] Allergy Diarrhea Verified 11/18/17 03:48 morphine Allergy Abdominal Verified 11/18/17 06:40 Pain Sulfa (Sulfonamide Allergy Hives Verified 11/18/17 03:48 Antibiotics) Tetracycline Allergy Hives Verified 11/18/17 03:48 adhesive AdvReac Rash Verified 11/18/17 06:17 NSAIDS (Non-Steroidal AdvReac See Verified 11/18/17 03:48 Anti-Inflamma Comments emycin Allergy Abdominal Uncoded 11/18/17 03:48 Pain tape Allergy Rash Uncoded 11/18/17 03:48 All Systems PM: A 10-system review of systems was performed and is negative for pertinent findings except as documented above in the HPI. - Constitutional Constitutional: no chills, no fever(s), no night sweats - EENT Eyes: no change in vision, no discharge, no pain, no photophobia Ears: no ear discharge, no ear pain, no tinnitus Nose, mouth and throat: no dysphagia, no nasal discharge, no neck pain, no sore throat - Cardiovascular Cardiovascular ROS IM: no chest pain, no diaphoresis, no dyspnea, no lightheadedness, no palpitations, no syncope - Respiratory Respiratory: no cough, no dyspnea, no wheezing, no excessive phlegm production - Gastrointestinal Gastrointestinal: no abdominal pain, no diarrhea, no hematemesis, no hematochezia, no melena, no nausea, no vomiting - Genitourinary Genitourinary: no change in urinary stream, no dysuria, no flank pain, no hematuria - Musculoskeletal Musculoskeletal ROS IM: no numbness, no tingling - Integumentary Integumentary IM: no rash, no unusual bruising - Neurological Neurological ROS: numbness (In her right fourth toe which is chronic. No new numbness or tingling), restless legs, weakness (Right sided upper and lower extremity), no abnormal hearing, no confusion, no convulsions, no dizziness, no focal weakness, no headache(s), no loss of vision, no memory loss, no tingling, no tremor(s), no vertigo, no other visual disturbances - Hematologic/Lymphatic Hematologic/Lymphatic: no easy bruising - Constitutional Vitals: Temp Pulse Resp BP Pulse Ox 98.3 F 65 16 101/48 95 11/18/17 04:03 11/18/17 06:43 11/18/17 06:43 11/18/17 06:43 11/18/17 06:43 Exam: General: Patient alert, awake, oriented 3, interactive, in no acute distress HEENT: Normocephalic, atraumatic, pupils equal reactive to light, nasal cavity patent and open septum median position, oral mucosa moist, uvula midline, neck supple trachea midline no palpable lymphadenopathy, no thyromegaly. Chest: Symmetric bilateral correlating with respiratory effort, effort nonlabored. Cardiac: Regular rate and rhythm, soft systolic ejection murmur. no bruits appreciated bilateral carotids, Radial pulses 2+ bilateral, posterior tibial and dorsal pedal pulses 2+ bilateral. Respiratory: Clear to auscultation all lung alva Abdomen: Soft, nontender, positive bowel sounds, no palpable masses appreciated on examination Extremities: Symmetric bilateral, bilateral lower extremities without erythema or edema, patient moving all 4 extremities spontaneously. Neurologic: No focal deficits appreciated on examination. Cranial nerves II through XII intact, reflexes and brachial, triceps, patellar and Achilles bilaterally 2 /4. Visual alva intact, Face symmetric, muscle strength symmetric bilateral upper and lower extremities. Internal Med - H&P Results - Labs CBC & Chem 7: 11/18/17 04:52 11/18/17 04:52 <Rocky Jiemnez Felicia - Last Filed: 11/18/17 18:41> Date of Encounter: 11/18/17 Assessment and Plan (1) TIA (transient ischemic attack) Current visit: Yes Status: Acute Qualifiers: Transient cerebral ischemia type: other Qualified Code(s): G45.8 - Other transient cerebral ischemic attacks and related syndromes (2) Migraine Current visit: Yes Status: Acute Qualifiers: Migraine type: chronic without aura Status migrainosus presence: without status migrainosus Intractability: not intractable Qualified Code(s): G43.709 - Chronic migraine without aura, not intractable, without status migrainosus (3) Peptic ulcer disease Current visit: Yes Status: Acute (4) Acute reaction to situational stress Current visit: Yes Status: Acute Internal Medicine - H&P: HPI History of present illness: Ms. Acosta is a 57 year old female All Systems PM: A 10-system review of systems was performed and is negative for pertinent findings except as documented above in the HPI. - Constitutional Vitals: Temp Pulse Resp BP Pulse Ox 98.0 F 71 17 92/50 93 11/18/17 15:28 11/18/17 15:28 11/18/17 15:28 11/18/17 15:28 11/18/17 15:28 Internal Med - H&P Results - Labs CBC & Chem 7: 11/18/17 04:52 11/18/17 04:52 - Impressions ITS Impressions Brain MRI 11/18/17 10:39 IMPRESSION: No evidence of acute ischemia. Mild bilateral mastoiditis. D/ / 11/18/2017 14:09:59 Brandon Mejia MD / ana Interpreting Provider: Brandon Mejia MD - Attending Attestation I examined this patient and my medical decision-making was reviewed with the Resident Physician on 11/18/17. I agree with the documented findings, disposition and treatment plan as described except to the extent set forth below. Ms Acosta presented to ED with complaints of R side weakness. She was evaluated and subsequently placed in observation for further evaluation and treatment Ms Acosta is feeling very stressed. She is complaining of cough, ulcer pain and stress. No fever or chills. Exam alert. Comfortable at this time Mucus membranes dry Heart reg No wheeze No focal neuro finding Abd soft I/P 1. TIA 2. Migraine cephalgia 3. Anxiety Further diagnoses and plan as above.
[2017-11-18] MEDS ORDERED: Naloxone 0.4 MG/ML INJ IVP PRN (09:55)
[2017-11-18] MEDS ORDERED: Albuterol 2.5 MG/3 ML NEBULIZER IH PRN (10:52)
--- NOTE | 2017-11-18 11:38 | Neurology - Consult Note ---
Date of Encounter: 11/18/17 Time of Encounter: 10:30 Assessment and Plan (1) Weakness of right side of body Current Visit: Yes Status: Acute This patient was been admitted with this right-sided weakness has multiple episodes off and on for the past several months has been evaluated at different medical facilities. On today's examination I did not see any focal motor neurological deficit that she was presented earlier weight. She did mention that she has been under a lot of stress few months ago her committed suicide and she has been is struggling with significant distress since then. Certainly we need to exclude any ischemic etiology of her symptom I suggest getting an MRI of the brain. At the same time can continue her on baby aspirin on a regular basis. Physical possibility that her symptoms could be related to underlying revealed conversion disorder due to significant distress that she has been through in the last several months She may benefit from some anxiolytic agent or perhaps psychiatric evaluation later on as an outpatient. From neurology standpoint if MRI of the brain is negative she could be discharged to home. (2) Acute reaction to situational stress Current Visit: Yes Status: Acute History of Present Illness HPI: Ms. Acosta is a 57 year old female medical history of CHF, restless leg syndrome , hypertension, hyperlipidemia, IBS, previous TIA (1 week ago) was brought to the emergency department via EMS after having strokelike symptoms at [facility]. She states that she was at [facility] taking care of personal business as her recently and she was clearing up financial issues as he used to work there. She states that she had sudden onset of right upper and lower extremity weakness or head rotated to the right and she had weakness and unable to pick it up with associated drooling. She states that the manager hotel called EMS name Jimbo to the emergency department at which time her symptoms started to resolve and around. She states that she had very similar symptoms while in [facility] where she lives one week ago while at a casino. She states that she has had significant life stressors with the recent passing of her , difficulty with financial situations, clearing [id number] , life insurance and trying to sell her house here in [place]. She states that currently she feels well, symptoms that are still present are some mild weakness on her right upper and right lower extremity but she is hungry denies any drooling difficulty swallowing or any other concerning neurologic symptoms. She states prior to her last TIA one week ago she has never had strokelike symptoms. She denies any atrial fibrillation, heart issues other than her congestive heart failure. She has not changed or started any new medications. She has had previous tendon repair in her right foot and has a chronic numbness to her for digit on her right foot. She has a previous plate placed in her left wrist which gives her occasional discomfort and tingling in her left wrist. She states that her vision is well she never had any visual changes loss or double vision. She states that her vision is always been good. She does mention that she has had a recent diagnosis of peptic ulcer disease 2-3 months ago and has been on Protonix and is supposed to have a colonoscopy at [facility] in 1 jacky Past Med Surg Social Fam HX - Past Medical History Medical history: arthritis, cancer, CHF, COPD, fibromyalgia, GERD, hyperlipidemia, hypertension, migraine, thyroid disease Psychiatric history: anxiety, ADHD, depression - Past Surgical History Surgical History: appendectomy, breast surgery, , cancer surgery, cholecystectomy, hysterectomy - Social History Smoking Status: Former smoker Smokeless Tobacco Status: No Alcohol use: none Drug use: none - Family History Mother Living Status: Hx Family Cardiac Disorders: Yes (chf) Hx Family Respiratory Disorders: Yes (copd) Hx Family Cancer: Yes (breast uterine) Medications and Allergies Varenicline Tartrate [Chantix Starting Month ] 1 tab PO AD #0 05/25/15 [ History] Aspirin 81 mg PO DAILY 05/26/15 [History] Atorvastatin [Lipitor] 10 mg PO HS #0 05/26/15 [History] Butalb/Acetaminophen/Caffeine [Fioricet 50-300-40 mg Capsule] 1 mg PO DAILY PRN 05/26/15 [History] Carvedilol [Coreg] 3.125 mg PO BIDWM 05/26/15 [History] Citalopram Hydrobromide [Celexa] 20 mg PO DAILY 05/26/15 [History] Digoxin [Lanoxin] 0.125 mg PO DAILY 05/26/15 [History] LORazepam [Ativan] 0.25 mg PO DAILY 05/26/15 [History] Levalbuterol Neb [Xopenex Neb] 45 inh PO 4XW PRN 05/26/15 [History] Methocarbamol [Robaxin] 750 mg PO Q8HR 05/26/15 [History] Ondansetron [Zofran] 4 mg PO Q4HR PRN 05/26/15 [History] Ropinirole [Requip] 3 mg PO DAILY 05/26/15 [History] Levothyroxine Sodium [Tirosint] 50 mcg PO DAILY 08/04/17 [History] Lisinopril [Zestril] 2.5 mg PO DAILY tablet 08/05/17 [Rx] Omeprazole [PriLOSEC] 20 mg PO DAILY capsule. 08/05/17 [Rx] Sucralfate [Carafate] 1 gm PO BID tablet 08/05/17 [Rx] Tiotropium [Spiriva] 18 mcg IH DAILY inh 08/05/17 [Rx] Sucralfate [Carafate] 1 gm PO QIDAC #20 tablet 08/26/17 [Rx] 3 Allergy/AdvReac Type Severity Reaction Status Date / Time acetaminophen [From Vicodin] Allergy Migraine Verified 11/18/17 03:48 Amoxicillin [From Augmentin] Allergy Diarrhea Verified 11/18/17 03:48 cephalexin [From Keflex] Allergy Hives Verified 11/18/17 03:48 clavulanic acid Allergy Diarrhea Verified 11/18/17 03:48 [From Augmentin] codeine Allergy Abdominal Verified 11/18/17 03:48 Pain hydrocodone [From Vicodin] Allergy Migraine Verified 11/18/17 03:48 levofloxacin [From Levaquin] Allergy Diarrhea Verified 11/18/17 03:48 morphine Allergy Abdominal Verified 11/18/17 06:40 Pain Sulfa (Sulfonamide Allergy Hives Verified 11/18/17 03:48 Antibiotics) Tetracycline Allergy Hives Verified 11/18/17 03:48 adhesive AdvReac Rash Verified 11/18/17 06:17 NSAIDS (Non-Steroidal AdvReac See Verified 11/18/17 03:48 Anti-Inflamma Comments emycin Allergy Abdominal Uncoded 11/18/17 03:48 Pain tape Allergy Rash Uncoded 11/18/17 03:48 All Systems: A 10-system review of systems was performed and is negative for pertinent findings except as documented above in the HPI. Physical Examination - Vital Signs Vital Signs: Initial Vital Signs Temp Pulse Resp BP Pulse Ox 98.3 F 64 16 107/59 98 11/18/17 04:03 11/18/17 04:03 11/18/17 04:03 11/18/17 04:03 11/18/17 04:03 - Neurologic Sensorimotor examination: intact Detailed motor examination: full strength in all major muscle groups Motor examination - right side: 5/5: deltoids, biceps, triceps, wrist flexion, wrist extension, evs tech, hip flexors, tibialis Anterior, quadriceps, toe extension (EHL), plantarflexion Motor examination - left side: 5/5: deltoids, biceps, triceps, wrist flexion, wrist extension, hip flexors, evs tech, quadriceps, tibialis Anterior, toe extension (EHL), plantarflexion Mental Status Examination: awake, alert, oriented to person, oriented to place, oriented to time, follows commands appropriately, answers questions appropriately, no agnosia, no aphasia, no aproxia Cranial nerve examination: PERRL, EOMI, visual alva intact, corneal reflexes brisk symmetrically, sensory to face intact, mastication intact, no facial asymmetry is present, no dysarthria, hearing is intact symmetrically, soft palate elevates bilaterally upon phonation, gag reflex intact, flexes SCM and trapezius muscles symmetrically with full power, tongue protrudes midline, no atrophy or facial fasiculations present Cerebellar examination: no dysmetria, performs finger to nose and heel to miller symmetrically without ataxia, no gait ataxia, no truncal ataxia, no difficulty with rapid alternating movements Results - Laboratory Findings CBC and BMP: 11/19/17 05:46 11/19/17 05:46 Abnormal lab findings: Abnormal lab results Chloride 112 mEq/L (98-107) H 11/18/17 04:52 Carbon Dioxide 20 mEq/L (23-29) L 11/18/17 04:52 Calcium 8.5 mg/dL (8.6-10.3) L 11/18/17 04:52 Consult Discharge Plan - Plan Additional Instructions: FOllow up with PCP in the next 3-5 days Take medications as prescribed. IF you have recurrence of stroke like symptoms or other concerning medical problems be seen in the emergency department for further evaluation. Referrals: NONE,PCP [Primary Care Provider] -
[2017-11-18 13:14] LABS: Chol/HDL Ratio 3.4 (0-4.9); Cholesterol 137 mg/dL (< 200); HDL Cholesterol 40 mg/dL (40-59); LDL Cholesterol,Calculated 54 mg/dL (0-99); Phosphorous 2.2 mg/dL (2.7-4.5); Triglycerides 215 mg/dL (< 150)
[2017-11-18] MEDS ORDERED: Ondansetron ODT 4 MG TAB.RAPDIS PO PRN (18:41)
[2017-11-18] MEDS: Sucralfate 1 GM TABLET PO SCH ×5 (18:51→20:57)
[2017-11-18] MEDS: Aspirin 81 MG TAB.CHEW PO SCH (18:51)
[2017-11-18] MEDS: Mirtazapine 15 MG TABLET PO SCH (20:54)
[2017-11-18] MEDS: *HR* LORazepam 0.5 MG TABLET PO PRN (20:58)
[2017-11-18] MEDS: Methocarbamol 750 MG TABLET PO SCH ×2 (21:38→23:01)
[2017-11-19] MEDS ORDERED: Methocarbamol 750 MG TABLET PO SCH
[2017-11-19 06:39] LABS: Hematocrit 38.5 % (35.3-44.9); Hemoglobin 12.6 g/dL (11.5-15.4); Mean Corpuscular HGB Conc 32.7 g/dL (31.6-35.5); Mean Corpuscular Hemoglobin 30.8 pg (28.0-33.3); Mean Corpuscular Volume 94.1 fL (83.0-100.0); Mean Platelet Volume 10.1 fL (9.4-12.4); Platelet Count 248 K/mcL (140-400); Red Blood Count 4.09 M/mcL (3.82-4.97); Red Cell Distribution Width 13.3 % (11.5-14.5)
[2017-11-19 07:00] LABS: BUN/Creatinine Ratio 16 (6-26); Blood Urea Nitrogen 13 mg/dL (6-20); Calcium 8.6 mg/dL (8.6-10.3); Carbon Dioxide 23 mEq/L (23-29); Chloride 115 mEq/L (98-107); Glucose 93 mg/dL (70-105); Osmolality,Calculated 294 (280-300); Potassium 4.1 mEq/L (3.5-5.1); Sodium 142 mEq/L (136-145); eGFR For African Americans > 60 (> 60); eGFR For Non-African Americans > 60 (> 60)
[2017-11-19] MEDS: Tiotropium 18 MCG inhalation IH SCH (07:57)
--- NOTE | 2017-11-19 08:36 | Discharge Summary ---
Date of Encounter: 11/19/17 Time of Encounter: 08:35 - Discharge Diagnosis (1) TIA (transient ischemic attack) Priority: Primary Status: Acute Qualifiers: Transient cerebral ischemia type: other Qualified Code(s): G45.8 - Other transient cerebral ischemic attacks and related syndromes (2) Diastolic CHF Priority: Secondary Status: Acute (3) COPD (chronic obstructive pulmonary disease) Priority: Secondary Status: Chronic Qualifiers: COPD type: emphysema Emphysema type: panlobular Qualified Code(s): J43.1 - Panlobular emphysema (4) Peptic ulcer disease Priority: Primary Status: Acute (5) DVT prophylaxis Priority: Secondary Status: Acute - Discharge Medications Home Medications: Varenicline Tartrate [Chantix Starting Month ARAIS] 1 tab PO AD #0 05/25/15 [ History] Aspirin 81 mg PO DAILY 05/26/15 [History] Atorvastatin [Lipitor] 10 mg PO HS #0 05/26/15 [History] Butalb/Acetaminophen/Caffeine [Fioricet 50-300-40 mg Capsule] 1 mg PO DAILY PRN 05/26/15 [History] Carvedilol [Coreg] 3.125 mg PO BIDWM 05/26/15 [History] Citalopram Hydrobromide [Celexa] 20 mg PO DAILY 05/26/15 [History] Digoxin [Lanoxin] 0.125 mg PO DAILY 05/26/15 [History] LORazepam [Ativan] 0.25 mg PO DAILY 05/26/15 [History] Levalbuterol Neb [Xopenex Neb] 45 inh PO 4XW PRN 05/26/15 [History] Methocarbamol [Robaxin] 750 mg PO Q8HR 05/26/15 [History] Ondansetron [Zofran] 4 mg PO Q4HR PRN 05/26/15 [History] Ropinirole [Requip] 3 mg PO DAILY 05/26/15 [History] Levothyroxine Sodium [Tirosint] 50 mcg PO DAILY 08/04/17 [History] Lisinopril [Zestril] 2.5 mg PO DAILY tablet 08/05/17 [Rx] Omeprazole [PriLOSEC] 20 mg PO DAILY capsule. 08/05/17 [Rx] Sucralfate [Carafate] 1 gm PO BID tablet 08/05/17 [Rx] Tiotropium [Spiriva] 18 mcg IH DAILY inh 08/05/17 [Rx] Sucralfate [Carafate] 1 gm PO QIDAC #20 tablet 08/26/17 [Rx] Allergies/Adverse Reactions: 3 Allergy/AdvReac Type Severity Reaction Status Date / Time acetaminophen [From Vicodin] Allergy Migraine Verified 11/18/17 03:48 Amoxicillin [From Augmentin] Allergy Diarrhea Verified 11/18/17 03:48 cephalexin [From Keflex] Allergy Hives Verified 11/18/17 03:48 clavulanic acid Allergy Diarrhea Verified 11/18/17 03:48 [From Augmentin] codeine Allergy Abdominal Verified 11/18/17 03:48 Pain hydrocodone [From Vicodin] Allergy Migraine Verified 11/18/17 03:48 levofloxacin [From Levaquin] Allergy Diarrhea Verified 11/18/17 03:48 morphine Allergy Abdominal Verified 11/18/17 06:40 Pain Sulfa (Sulfonamide Allergy Hives Verified 11/18/17 03:48 Antibiotics) Tetracycline Allergy Hives Verified 11/18/17 03:48 adhesive AdvReac Rash Verified 11/18/17 06:17 NSAIDS (Non-Steroidal AdvReac See Verified 11/18/17 03:48 Anti-Inflamma Comments emycin Allergy Abdominal Uncoded 11/18/17 03:48 Pain tape Allergy Rash Uncoded 11/18/17 03:48 Procedures/tests Complete & Pending: Procedures Performed prior 72 hours Category Date Time Status MR head/brain wo con [MR] Routine MRI 11/18/17 10:39 Completed EV echocardiogram Routine Y 11/18/17 18:43 Ordered Date of admission: 11/18/17 06:19 Primary care physician: PCP NONE Consults: 11/18/17 08:56 Consult to Neurology [CONS] Routine Consulting Provider: [facility] Reason for Consult: TIA, recurrent. Call Completed: Yes Discharging clinician: Gerson King Anticipated date of discharge: 11/19/17 - Patient Status Disposition: Home, Self-Care Condition: Good Overall status at discharge: patient is back to baseline - Discharge Instructions Follow Up With: NONE,PCP [Primary Care Provider] - Additional Instructions: FOllow up with PCP in the next 3-5 days Take medications as prescribed. IF you have recurrence of stroke like symptoms or other concerning medical problems be seen in the emergency department for further evaluation. - Diet and Activity Activity: increase activity as tolerated Diet: advance to your usual diet Interval History: Mrs. Acosta, 57-year-old female past medical history of CHF, restless leg syndrome, hypertension, hyperlipidemia, IBS, previous TIA (1 week ago) was brought to the emergency department via EMS after having strokelike symptoms at [facility]. She states that she had sudden onset of right upper and lower extremity weakness or head rotated to the right and she had weakness and unable to pick it up with associated drooling. She was seen in the emergency department with improvement of her symptoms. CT of the head was negative for acute changes, NIH 0, Basic blood work showed no major lab abnormalities. Troponin negative. EKG shows normal sinus rhythm with no acute ST changes. Patient was admitted to the general medical unit for further evaluation and work up for TIA. She remained stable inpatient with complete resolution of her symptoms. Discussing background problems she recently lost her to suicide and had a lot of financial difficulties to work up. This was her second TIA like symptoms in the past few weeks with her last one in [facility]. MRI of the brain without acute findings. Echocardiogram Ms. Acosta was seen and evaluated on 11/19/2017 and deemed stable for discharge home with close follow up with her pcp. Hospital course: Ms. Acosta is a 57 year old female - Time Spent with Patient Total time spent providing and/or coordinating discharge services: - Constitutional Vitals: Temp Pulse Resp BP Pulse Ox 97.9 F 52 17 116/71 96 11/19/17 07:09 11/19/17 07:09 11/19/17 07:09 11/19/17 07:09 11/19/17 07:09 - Head Head exam: Present: atraumatic, normocephalic - Eye Eye exam: Present: PERRL, conjuntiva pink, sclera anicteric Pupils: Present: PERRL - Neck Neck exam general surgery: Present: supple, trachea midline. Absent: lymphadenopathy - Respiratory Respiratory exam: Present: CTAB. Absent: accessory muscle use, rales, rhonchi, wheezes - Cardiovascular Cardiovascular exam: Present: RRR, +S1, +S2. Absent: diastolic murmur, gallop, rubs, systolic murmur - GI/Abdominal GI/Abdominal exam: Present: normal bowel sounds, soft, no peritoneal signs. Absent: distended, tenderness - Extremities Exam Extremities exam: Present: warm, radial pulses palpable and symmetrical. Absent : calf tenderness, cyanotic, pedal edema - Neurological Exam Neurological exam: Present: CN II-XII intact, oriented X3, no focal deficits. Absent: pronater drift, facial droop, speech deficit - Skin Skin exam: Present: dry, intact
[2017-11-19] MEDS: Aspirin 81 MG TAB.CHEW PO SCH (08:40)
[2017-11-19] MEDS: Methocarbamol 750 MG TABLET PO SCH ×3 (08:40→21:16)
[2017-11-19] MEDS: Sucralfate 1 GM TABLET PO SCH ×5 (08:40→22:21)
[2017-11-19] MEDS: *HR* Digoxin 0.125 MG TABLET PO SCH (08:42)
--- NOTE | 2017-11-19 17:46 | Internal Med Progress Note ---
<Gerson King - Last Filed: 11/19/17 17:44> Date of Encounter: 11/19/17 Time of Encounter: 11:00 - Assessment and plan (1) TIA (transient ischemic attack) Current Visit: Yes Status: Acute Assessment and plan: 57-year-old female transferred to the emergency department from [facility] with strokelike symptoms that resolved on their own. Previous symptoms 1 week ago while in [facility], resolved on their own at that time too. No previous stroke history. - Denies history of previous strokes, atrial fibrillation or cardiac arrhythmia or known vascular disease. Previous smoker quit 2 years ago. - Head CT performed in the emergency department without acute findings. - Patient does have significant leg changing events, multiple stressors and this may be secondary to psychologic affect. Symptoms have resolved no significant risk factors for stroke at this time. Upon examination patient is interactive, speech appropriate neurologic exam without significant/concerning deficit. * Age less than 60, blood pressure 100/65 no history of hypertension, no clinical features of bilateral weakness, no speech impairment, short duration of symptoms. No history of diabetes. - Patient on aspirin 81 mg by mouth daily. 11/19: no new neurologic changes over night. Patient stable. Plan: - Continue cardiac monitoring and patient, consider risk factors for atrial fibrillation - Echocardiogram completed with results pending. If negative patient may be able to discharge later today or tomorrow with close follow-up with PCP. Qualifiers: Transient cerebral ischemia type: other Qualified Code(s): G45.8 - Other transient cerebral ischemic attacks and related syndromes (2) Diastolic CHF Current Visit: Yes Status: Acute Assessment and plan: Stable. Patient euvolemic. Echocardiogram 08/04/2017 Impressions: LVEF 50%. Normal LV chamber size, wall thickness and low normal function. Indeterminate diastolic function. Tissue Doppler not performed. Normal right ventricular structure and function. Mild-moderate mitral regurgitation. No evidence of pulmonary hypertension. Patient had a nuclear stress test performed July 2017 -Perfusion imaging was negative for ischemia or infarct. Plan: - Continue aspirin, atorvastatin, Coreg, digoxin, lisinopril - 2 L fluid restriction, 2 g sodium restriction - Daily weights and strict intake and output monitoring Qualifiers: Heart failure chronicity: acute Qualified Code(s): I50.31 - Acute diastolic (congestive) heart failure (3) COPD (chronic obstructive pulmonary disease) Current Visit: No Status: Chronic Assessment and plan: 57-year-old female with a past medical history of tobacco abuse and previous diagnosis of COPD. Current respiratory status stable, patient on room air. Plan: - Continue Spiriva - Continue Xopenex - Albuterol inhaler when necessary. Qualifiers: COPD type: emphysema Emphysema type: panlobular Qualified Code(s): J43.1 - Panlobular emphysema (4) Peptic ulcer disease Current Visit: Yes Status: Acute Assessment and plan: Patient has recent diagnosis of peptic ulcer disease, continue home medications. (5) DVT prophylaxis Current Visit: No Status: Acute Assessment and plan: Subcutaneous heparin daily - Subjective Interval history: Ms. Acosta 57yo female seen and evaluated. She is sitting up in bed eating breakfast without difficulty. She says she feels back to her normal self and ready for discharge. She denies any acute events over night. - Constitutional Vitals: Temp Pulse Resp BP Pulse Ox 97.7 F 60 18 91/51 94 11/19/17 15:33 11/19/17 15:33 11/19/17 15:33 11/19/17 15:33 11/19/17 15:33 - Head Head exam: Present: atraumatic, normocephalic - Eye Eye exam: Present: PERRL, conjuntiva pink, sclera anicteric Pupils: Present: PERRL - Neck Neck exam general surgery: Present: supple, trachea midline. Absent: lymphadenopathy - Respiratory Respiratory exam: Present: CTAB. Absent: accessory muscle use, rales, rhonchi, wheezes - Cardiovascular Cardiovascular exam: Present: RRR, +S1, +S2. Absent: diastolic murmur, gallop, rubs, systolic murmur - GI/Abdominal GI/Abdominal exam: Present: normal bowel sounds, soft, no peritoneal signs. Absent: distended, tenderness - Extremities Exam Extremities exam: Present: warm, radial pulses palpable and symmetrical. Absent : calf tenderness, cyanotic, pedal edema - Neurological Exam Neurological exam: Present: CN II-XII intact, oriented X3, no focal deficits. Absent: pronater drift, facial droop, speech deficit Additional comments: numbness (In her right fourth toe which is chronic. No new numbness or tingling ), restless legs, weakness (Right sided upper and lower extremity), no abnormal hearing, no confusion, no convulsions, no dizziness, no focal weakness, no headache(s), no loss of vision, no memory loss, no tingling, no tremor(s), no vertigo, no other visual disturbances - Skin Skin exam: Present: dry, intact Internal Medicine: Result - Labs CBC & Chem 7: 11/19/17 05:46 11/19/17 05:46 Labs: Short CBC 11/19/17 Range/Units 05:46 WBC 6.1 (4.3-11.1) K/mcL Hgb 12.6 (11.5-15.4) g/dL Hct 38.5 (35.3-44.9) % Plt Count 248 (140-400) K/mcL BMP 11/19/17 05:46 Sodium 142 Potassium 4.1 Chloride 115 H Carbon Dioxide 23 BUN 13 Creatinine 0.81 Glucose 93 Calcium 8.6 - ABG Interpretation ABG results: PT/INR, D-dimer PT 11.5 Seconds (9.4-12.1) 11/18/17 04:52 Consult Discharge Plan - Plan Additional Instructions: FOllow up with PCP in the next 3-5 days Take medications as prescribed. IF you have recurrence of stroke like symptoms or other concerning medical problems be seen in the emergency department for further evaluation. Referrals: NONE,PCP [Primary Care Provider] - <Rocky Jimenez - Last Filed: 11/19/17 18:31> Date of Encounter: 11/19/17 - Assessment and plan (1) Acute systolic (congestive) heart failure Current Visit: Yes Status: Acute (2) TIA (transient ischemic attack) Current Visit: Yes Status: Acute Qualifiers: Transient cerebral ischemia type: other Qualified Code(s): G45.8 - Other transient cerebral ischemic attacks and related syndromes (3) Migraine Current Visit: Yes Status: Acute Qualifiers: Migraine type: chronic without aura Status migrainosus presence: without status migrainosus Intractability: not intractable Qualified Code(s): G43.709 - Chronic migraine without aura, not intractable, without status migrainosus (4) Peptic ulcer disease Current Visit: Yes Status: Acute (5) Acute reaction to situational stress Current Visit: Yes Status: Acute - Constitutional Vitals: Temp Pulse Resp BP Pulse Ox 97.7 F 60 18 91/51 94 11/19/17 15:33 11/19/17 15:33 11/19/17 15:33 11/19/17 15:33 11/19/17 15:33 Internal Medicine: Result - Labs CBC & Chem 7: 11/19/17 05:46 11/19/17 05:46 Labs: Short CBC 11/19/17 Range/Units 05:46 WBC 6.1 (4.3-11.1) K/mcL Hgb 12.6 (11.5-15.4) g/dL Hct 38.5 (35.3-44.9) % Plt Count 248 (140-400) K/mcL BMP 11/19/17 05:46 Sodium 142 Potassium 4.1 Chloride 115 H Carbon Dioxide 23 BUN 13 Creatinine 0.81 Glucose 93 Calcium 8.6 - ABG Interpretation ABG results: PT/INR, D-dimer PT 11.5 Seconds (9.4-12.1) 11/18/17 04:52 - Impressions Impressions Echocardiogram 11/18/17 18:43 Impressions: LVEF 30-35%. Global left ventricular systolic dysfunction. No pulmonary hypertension. No severe valvular dysfunction. Left Ventricular Wall Motion: Rest Echo Findings All wall segments showed normal motion. Findings: Study Quality * Technically adequate exam. Right Ventricle * Normal right ventricular structure and function. Left Atrium * Normal left atrial size. Right Atrium * Normal right atrial size. Aortic Valve * Trileaflet aortic valve with normal function. Interatrial Septum * No evidence of PFO by color Doppler. Aorta * Normally sized aortic root. Pericardium * The pericardium appears normal. ECG Findings * Normal sinus rhythm. Mitral Valve * Normal mitral valve structure. * No mitral stenosis. * Mild mitral regurgitation. Left Ventricle * LVEF 30-35%. * Global left ventricular systolic dysfunction. * Diastolic dysfunction, NOS Pulmonic Valve * No pulmonic regurgitation. * No pulmonic stenosis. * Pulmonic valve is not well visualized. Tricuspid Valve * No tricuspid stenosis. * Trace tricuspid regurgitation. * Estimated RVSP is 17 mmHg. * No pulmonary hypertension. IVC * Normal IVC dimensions and inspiratory collapse. - Attending Attestation I examined this patient and my medical decision-making was reviewed with the Resident Physician on 11/19/17. I agree with the documented findings, disposition and treatment plan as described except to the extent set forth below. Ms Acosta is currently admitted for weakness. Echo shows EF of 30-35% down from 50% in July. She remains moderate to high risk due to potential for worsening clinical status. Ms Acosta is resting comfortably. No CP or SOB now. No weakness. Exam alert Comfortable Mucus membranes dry Heart reg and distant Lungs clear currently I/P 1. Acute systolic dysfunction - card eval 2. DM Further diagnoses and plan as above.
[2017-11-19] MEDS: *HR* LORazepam 0.5 MG TABLET PO PRN (21:16)
[2017-11-19] MEDS: Mirtazapine 15 MG TABLET PO SCH (21:16)
--- NOTE | 2017-11-19 21:27 | Neurology Progress Note ---
Date of Encounter: 11/19/17 Time of Encounter: 04:25 Assessment and Plan (1) Weakness of right side of body Current Visit: Yes Status: Acute There was subjective weakness of the right side without any focal findings on neurological examination MRI of the brain has been negative for any acute stroke. Considering overall symptoms and suspect is likely related to underlying stress. Patient would probably benefit from anxiolytic agent. Continue on antiplatelet therapy. From neurology standpoint patient seems to be stable (2) Acute reaction to situational stress Current Visit: Yes Status: Acute Subjective Interval history: Patient seems to be stable no other acute neurological issues complaining of some dizziness MRI of the brain reported as negative Objective - Constitutional Vitals: Temp Pulse Resp BP Pulse Ox 97.8 F 66 18 95/60 96 11/19/17 19:01 11/19/17 19:01 11/19/17 19:01 11/19/17 19:01 11/19/17 19:01 - Neurological Exam Sensorimotor examination: Present: intact Motor Examination: Present: full strength in all major muscle groups Motor examination - right side: 4/5: deltoids, biceps, triceps, wrist flexion, wrist extension, ditch cleaner, hip flexors, tibialis Anterior, quadriceps, toe extension (EHL), plantarflexion Motor examination - left side: 5/5: deltoids, biceps, triceps, wrist flexion, wrist extension, hip flexors, ditch cleaner, quadriceps, tibialis Anterior, toe extension (EHL), plantarflexion Mental Status Examination: Present: awake, alert, oriented to person, oriented to place, oriented to time, follows commands appropriately, answers questions appropriately, no agnosia, no aphasia, no aproxia Cranial nerve examination: Present: PERRL, EOMI, visual alva intact, corneal reflexes brisk symmetrically, sensory to face intact, mastication intact, no facial asymmetry is present, no dysarthria, hearing is intact symmetrically, soft palate elevates bilaterally upon phonation, gag reflex intact, flexes SCM and trapezius muscles symmetrically with full power, tongue protrudes midline, no atrophy or facial fasiculations present Cerebellar examination: Present: no dysmetria, performs finger to nose and heel to miller symmetrically without ataxia, no gait ataxia, no truncal ataxia, no difficulty with rapid alternating movements Results - Laboratory Findings CBC and BMP: 11/19/17 05:46 11/19/17 05:46 Abnormal lab findings: Abnormal lab results Chloride 115 mEq/L (98-107) H 11/19/17 05:46 Phosphorus 2.2 mg/dL (2.7-4.5) L 11/18/17 04:52 Triglycerides 215 mg/dL (< 150) H 11/18/17 04:52 VLDL Cholesterol, Calc 43 mg/dL (< 31) H 11/18/17 04:52 Consult Discharge Plan - Plan Additional Instructions: FOllow up with PCP in the next 3-5 days Take medications as prescribed. IF you have recurrence of stroke like symptoms or other concerning medical problems be seen in the emergency department for further evaluation. Referrals: NONE,PCP [Primary Care Provider] -
--- NOTE | 2017-11-20 07:37 | Electrocardiograph Report ---
[address] [place] [address] Test Date: 2017-11-18 Pat Name: Linda Acosta Department: 102 Room: 3B Gender: F Spooler: : 1960 Requested By: Deangelo Lundberg Order Number: [id number] Reading MD: Jem Palmer MD Measurements Intervals [place] Rate: 61 P: 55 VT: 172 QRS: 40 QRSD: 93 T: 25 QT: 409 QTc: 412 Interpretive Statements SINUS RHYTHM BASELINE ARTIFACT Electronically Signed On 11-20-2017 7:35:39 EST by Jem Palmer MD
[2017-11-20] MEDS: Tiotropium 18 MCG inhalation IH SCH (09:05)
[2017-11-20] MEDS: *HR* LORazepam 0.5 MG TABLET PO PRN (09:49)
[2017-11-20] MEDS: *HR* Digoxin 0.125 MG TABLET PO SCH (09:49)
[2017-11-20] MEDS: Methocarbamol 750 MG TABLET PO SCH ×2 (09:50→17:13)
[2017-11-20] MEDS: Aspirin 81 MG TAB.CHEW PO SCH (09:50)
[2017-11-20] MEDS: Sucralfate 1 GM TABLET PO SCH ×4 (09:50→21:13)
--- NOTE | 2017-11-20 10:11 | Internal Med Progress Note ---
<Rikki Salinas - Last Filed: 11/20/17 10:09> Date of Encounter: 11/20/17 Time of Encounter: 10:09 - Assessment and plan (1) Acute systolic (congestive) heart failure Current Visit: Yes Status: Acute Assessment and plan: Repeat echo today shows an acute drop in her EF down to 30%. Was 63% on nuclear stress test in July 2017. Patient does has intermittent chest tightness. EKG does not show ischemic changes. Given the patient's underlying stressors stress-induced cardiac myopathy is a consideration however coronary artery disease will need to be ruled out. Cardiology is being consulted. A drop in EF. Continue aspirin, statin, beta nima, NUPUR inhibitor, digoxin (2) TIA (transient ischemic attack) Current Visit: Yes Status: Acute Assessment and plan: Symptoms have resolved. Testing including brain MRI are unremarkable. Neurology saw the patient and feels this may be related to stress/anxiety. Continue with aggressive respiratory modification including blood pressure control, statin therapy, aspirin. Qualifiers: Transient cerebral ischemia type: other Qualified Code(s): G45.8 - Other transient cerebral ischemic attacks and related syndromes (3) COPD (chronic obstructive pulmonary disease) Current Visit: No Status: Chronic Assessment and plan: Stable. Continue Spiriva and bronchodilators when necessary. No evidence of acute exacerbation. Qualifiers: COPD type: emphysema Emphysema type: panlobular Qualified Code(s): J43.1 - Panlobular emphysema (4) Peptic ulcer disease Current Visit: Yes Status: Acute Assessment and plan: Stable. Continue omeprazole and Carafate. (5) DVT prophylaxis Current Visit: No Status: Acute Assessment and plan: Subcutaneous heparin daily - Subjective Interval history: Patient seen and examined at bedside. Patient reports mild tightness in her chest that she feels is related to anxiety. Denies shortness of breath, weakness, numbness, tingling. - Constitutional Vitals: Temp Pulse Resp BP Pulse Ox 98.3 F 63 17 103/64 94 11/20/17 07:30 11/20/17 07:30 11/20/17 07:30 11/20/17 07:30 11/20/17 07:30 General appearance: Present: A&O X 3, no acute distress - Respiratory Respiratory exam: Present: CTAB. Absent: rales, rhonchi, wheezes - Cardiovascular Cardiovascular exam: Present: RRR. Absent: gallop, rubs, systolic murmur - GI/Abdominal GI/Abdominal exam: Present: normal bowel sounds, soft. Absent: distended, tenderness - Extremities Exam Extremities exam: Absent: pedal edema Internal Medicine: Result - Labs CBC & Chem 7: 11/19/17 05:46 11/19/17 05:46 - ABG Interpretation ABG results: PT/INR, D-dimer PT 11.5 Seconds (9.4-12.1) 11/18/17 04:52 - Impressions Impressions Echocardiogram 11/18/17 18:43 Impressions: LVEF 30-35%. Global left ventricular systolic dysfunction. No pulmonary hypertension. No severe valvular dysfunction. Left Ventricular Wall Motion: Rest Echo Findings All wall segments showed normal motion. Findings: Study Quality * Technically adequate exam. Right Ventricle * Normal right ventricular structure and function. Left Atrium * Normal left atrial size. Right Atrium * Normal right atrial size. Aortic Valve * Trileaflet aortic valve with normal function. Interatrial Septum * No evidence of PFO by color Doppler. Aorta * Normally sized aortic root. Pericardium * The pericardium appears normal. ECG Findings * Normal sinus rhythm. Mitral Valve * Normal mitral valve structure. * No mitral stenosis. * Mild mitral regurgitation. Left Ventricle * LVEF 30-35%. * Global left ventricular systolic dysfunction. * Diastolic dysfunction, NOS Pulmonic Valve * No pulmonic regurgitation. * No pulmonic stenosis. * Pulmonic valve is not well visualized. Tricuspid Valve * No tricuspid stenosis. * Trace tricuspid regurgitation. * Estimated RVSP is 17 mmHg. * No pulmonary hypertension. IVC * Normal IVC dimensions and inspiratory collapse. Consult Discharge Plan - Plan Additional Instructions: FOllow up with PCP in the next 3-5 days Take medications as prescribed. IF you have recurrence of stroke like symptoms or other concerning medical problems be seen in the emergency department for further evaluation. Referrals: NONE,PCP [Primary Care Provider] - <Rocky Jimenez - Last Filed: 11/20/17 17:21> Date of Encounter: 11/20/17 - Assessment and plan (1) Acute systolic (congestive) heart failure Current Visit: Yes Status: Acute (2) TIA (transient ischemic attack) Current Visit: Yes Status: Acute Qualifiers: Transient cerebral ischemia type: other Qualified Code(s): G45.8 - Other transient cerebral ischemic attacks and related syndromes (3) Migraine Current Visit: Yes Status: Acute Qualifiers: Migraine type: chronic without aura Status migrainosus presence: without status migrainosus Intractability: not intractable Qualified Code(s): G43.709 - Chronic migraine without aura, not intractable, without status migrainosus (4) Peptic ulcer disease Current Visit: Yes Status: Acute (5) Acute reaction to situational stress Current Visit: Yes Status: Acute - Constitutional Vitals: Temp Pulse Resp BP Pulse Ox 98.3 F 65 18 105/63 93 11/20/17 16:27 11/20/17 16:27 11/20/17 16:27 11/20/17 16:27 11/20/17 16:27 Internal Medicine: Result - Labs CBC & Chem 7: 11/19/17 05:46 11/19/17 05:46 - ABG Interpretation ABG results: PT/INR, D-dimer PT 11.5 Seconds (9.4-12.1) 11/18/17 04:52 - Impressions Impressions Echocardiogram 11/18/17 18:43 Impressions: LVEF 30-35%. Global left ventricular systolic dysfunction. No pulmonary hypertension. No severe valvular dysfunction. Left Ventricular Wall Motion: Rest Echo Findings All wall segments showed normal motion. Findings: Study Quality * Technically adequate exam. Right Ventricle * Normal right ventricular structure and function. Left Atrium * Normal left atrial size. Right Atrium * Normal right atrial size. Aortic Valve * Trileaflet aortic valve with normal function. Interatrial Septum * No evidence of PFO by color Doppler. Aorta * Normally sized aortic root. Pericardium * The pericardium appears normal. ECG Findings * Normal sinus rhythm. Mitral Valve * Normal mitral valve structure. * No mitral stenosis. * Mild mitral regurgitation. Left Ventricle * LVEF 30-35%. * Global left ventricular systolic dysfunction. * Diastolic dysfunction, NOS Pulmonic Valve * No pulmonic regurgitation. * No pulmonic stenosis. * Pulmonic valve is not well visualized. Tricuspid Valve * No tricuspid stenosis. * Trace tricuspid regurgitation. * Estimated RVSP is 17 mmHg. * No pulmonary hypertension. IVC * Normal IVC dimensions and inspiratory collapse. - Attending Attestation I examined this patient and my medical decision-making was reviewed with the Resident Physician on 11/20/17. I agree with the documented findings, disposition and treatment plan as described except to the extent set forth below. Ms Acosta has been admitted for TIA type symptoms. She has been found to have new systolic dysfunction of echo. She is to have LHC today. She remains moderate to high risk at this time. Ms Acosta is resting comfortably. No new symptoms overnight. No fever or chills. No cough Exam alert. Comfortable Mucus membranes dry Heart distant No wheeze Abd soft I/P 1. Systolic dysfunction -new. LHCt today 2. TIA probable Further diagnoses and plan as above.
--- NOTE | 2017-11-20 11:07 | Cardiology Consult Note ---
<Marlo Phillips - Last Filed: 11/20/17 11:03> Date of Encounter: 11/20/17 Time of Encounter: 11:00 Assessment and Plan (1) Acute systolic (congestive) heart failure Current Visit: Yes Status: Acute Recurrent acute systolic CHF. TTE reviewed. Shows EF 30-35%. No significant valvular disease. Compared to most recent echo EF is significantly reduced. LHC 04/2015- Normal coronary arteries. EF 35%. TTE 07/2015- EF 50%. Mild to moderate MR. LEXIE 06/2015-LVEF 50%. Left ventricle appears mildly dilated with low normal systolic function. The right ventricle was normal in size and systolic function. Moderate to severely dilated left atrium. Probable severe mitral regurgitation due to malcoaptation. Mild tricuspid regurgitation. No evidence of pulmonary hypertension. 08/05/17-Stress test- negative for ischemia. Gated EF 63%. Currently euvolemic on exam. I discussed proceeding with LHC to r/o ischemic cause. R/B/A discussed. She agrees to proceed. 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 Discussed with neurology, CVA work-up is negative.Symptoms likely secondary to stress. No contraindication to LHC. Continue BB and aceI. (2) Mitral regurgitation Current Visit: No Status: Chronic H/o possible severe MR seen on previous LEXIE. Reports repeat LEXIE at [facility] showed no significant valvular disease. TTE this admission shows no significant disease. Qualifiers: Cardiac valve disease etiology: etiology unspecified Qualified Code(s): I34.0 - Nonrheumatic mitral (valve) insufficiency Discussion w patient/family: The assessment and plan as outlined above was discussed with the patient and/or family members who expressed understanding and agreement. All questions were answered. Thank you for involving us in the care of your patient. Please call with any questions. History of Present Illness Consult date: 11/20/17 Requesting physician: Rocky Jimenez Consult reason: Cardiomyopathy Chief complaint: right sided weakness History of present illness: Ms. Acosta is a 57 year old female with a history of NICMP, HLD, fibromyalgia, COPD, and previous tobacco use. She presented to the hospital with right sided weakness and fatigue. She admits to intermittent chest pain 1-2 times a week that is unchanged. She was seen by neurology during her stay. Her symptoms are thought to be secondary to increased stress. Her committed suicide six month ago. MRI of the head was negative for infarct. A TTE was completed as part of the CVA work-up and she was found to have reduced EF at 30-35%. There is significant valvular disease. She has a history of NICMP that resolved in 2014. LHC completed at that time showed normal coronaries. EF 35%. TTE following LHC showed EF improved to 50%. She denies SOB, orthopnea, or PND. No current peripheral edema noted. Past Med Surg Social Fam HX - Past Medical History Medical history: arthritis, cancer, CHF, COPD, fibromyalgia, GERD, hyperlipidemia, hypertension, migraine, thyroid disease Psychiatric history: anxiety, ADHD, depression - Past Surgical History Surgical History: appendectomy, breast surgery, , cancer surgery, cholecystectomy, hysterectomy - Social History Smoking Status: Former smoker Smokeless Tobacco Status: No Alcohol use: none Drug use: none - Family History Mother Living Status: Hx Family Cardiac Disorders: Yes (chf) Hx Family Respiratory Disorders: Yes (copd) Hx Family Cancer: Yes (breast uterine) Medications and Allergies Aspirin 81 mg PO DAILY 05/26/15 [History] Atorvastatin [Lipitor] 10 mg PO HS #0 05/26/15 [History] Butalb/Acetaminophen/Caffeine [Fioricet 50-300-40 mg Capsule] 1 mg PO DAILY PRN 05/26/15 [History] Carvedilol [Coreg] 3.125 mg PO BIDWM 05/26/15 [History] Citalopram Hydrobromide [Celexa] 20 mg PO DAILY 05/26/15 [History] Digoxin [Lanoxin] 0.125 mg PO DAILY 05/26/15 [History] LORazepam [Ativan] 0.25 mg PO DAILY 05/26/15 [History] Methocarbamol [Robaxin] 750 mg PO Q8HR 05/26/15 [History] Ondansetron [Zofran] 4 mg PO Q4HR PRN 05/26/15 [History] Ropinirole [Requip] 3 mg PO DAILY 05/26/15 [History] Levothyroxine Sodium [Tirosint] 50 mcg PO DAILY 08/04/17 [History] Omeprazole [PriLOSEC] 20 mg PO DAILY capsule. 08/05/17 [Rx] Sucralfate [Carafate] 1 gm PO QIDAC #20 tablet 08/26/17 [Rx] Promethazine [Phenergan] 25 mg PO Q8HR PRN 11/20/17 [History] 3 Allergy/AdvReac Type Severity Reaction Status Date / Time cephalexin [From Keflex] Allergy Hives Verified 11/18/17 03:48 Sulfa (Sulfonamide Allergy Hives Verified 11/18/17 03:48 Antibiotics) Tetracycline Allergy Hives Verified 11/18/17 03:48 acetaminophen [From Vicodin] AdvReac Migraine Verified 11/20/17 08:53 adhesive AdvReac Rash Verified 11/18/17 06:17 Amoxicillin [From Augmentin] AdvReac Diarrhea Verified 11/20/17 08:53 clavulanic acid AdvReac Diarrhea Verified 11/20/17 08:53 [From Augmentin] codeine AdvReac Abdominal Verified 11/20/17 08:53 Pain hydrocodone [From Vicodin] AdvReac Migraine Verified 11/20/17 08:53 levofloxacin [From Levaquin] AdvReac Diarrhea Verified 11/20/17 08:53 morphine AdvReac Abdominal Verified 11/20/17 08:53 Pain NSAIDS (Non-Steroidal AdvReac See Verified 11/18/17 03:48 Anti-Inflamma Comments tape Allergy Rash Uncoded 11/18/17 03:48 emycin AdvReac Abdominal Uncoded 11/20/17 08:53 Pain All Systems Review: A 10-system review of systems was performed and is negative for pertinent findings except as documented above in the HPI. Physical Examination Vital Signs, Last 4 Hours Temp Pulse Resp BP Pulse Ox 11/20/17 07:30 98.3 F 63 17 103/64 94 General: Conversant, No Apparent Distress HEENT: Atraumatic, Normocephaly, Mucus Membranes Moist Neck: No JVD, Normal carotid pulses Cardiac: Reg Rate and Rhythm, Normal S1 and S2, No Murmur Lungs: Normal Breath Sounds, No Wheeze, Rales, Rhonchi Neuro: Alert and responsive, No focal deficits noted Abdomen: Soft, Non-Tender Skin: No rashes noted on visualized skin Musculoskeletal: No Chest Wall Tenderness Extremities: No Clubbing, No Cyanosis, No Edema, Normal Pulses Results 11/19/17 05:46 11/19/17 05:46 - Imaging and Cardiology Echo: report reviewed - EKG Interpretation EKG results cardiology: personally reviewed Consult Discharge Plan - Plan Referrals: NONE,PCP [Primary Care Provider] - <Callie Vargas - Last Filed: 11/21/17 12:13> Date of Encounter: 11/21/17 - Attending Attestation I examined this patient and my medical decision-making was reviewed with the PACKAGING CLERK. I agree with the documented findings, disposition and treatment plan as described. Ms. Acosta presents with intermittent chest pain symptoms. She had an echo demonstrating reduced EF 30-35% - in the past demonstrated NICM with normalization of EF. No new ECG changes, troponin x1 negative. She does have risk factors for CAD. We recommended the patient undergo LHC for evaluation of CAD as a potential explanation for reduced EF. The R/B/A of the procedure were discussed with the patient who expressed understanding and verbalized agreement to proceed. Assessment and Plan Discussion w patient/family: The assessment and plan as outlined above was discussed with the patient and/or family members who expressed understanding and agreement. All questions were answered. Thank you for involving us in the care of your patient. Please call with any questions. History of Present Illness History of present illness: Ms. Acosta is a 57 year old female All Systems Review: A 10-system review of systems was performed and is negative for pertinent findings except as documented above in the HPI. Physical Examination Vital Signs, Last 4 Hours Temp Pulse Resp BP Pulse Ox 11/21/17 10:59 97.6 F 72 16 85/55 96 Results 11/21/17 03:40 11/19/17 05:46 Lab Results 11/21/17 03:40 WBC 6.9 Hgb 13.3 Hct 41.9 Plt Count 259
--- NOTE | 2017-11-20 11:20 | Pre-Sedation Evaluation ---
Pre-sedation evaluation - Pre-sedation checklist Date of procedure: 11/20/17 Procedure: heart cath Recent Vitals: Last Vital Signs Temp 98.3 F 11/20/17 07:30 Pulse 63 11/20/17 07:30 Resp 17 11/20/17 07:30 BP 103/64 11/20/17 07:30 Pulse Ox 94 11/20/17 07:30 H&P (including ROS) documented in medical record: Yes Previous reaction to sedatives/anesthetics: Yes; explain in comment Dietary Status: NPO after Midnight Dentition: poor dentition ASA Classification *see protocol: CLASS II-Mild systemic disease Plan of Care: Pt appropriate candidate for procedure/moderate/conscious sedation
[2017-11-20] MEDS ORDERED: *HR* Midazolam HCl 2 MG/2 ML VIAL ONE ×3 (14:34→15:06)
[2017-11-20] MEDS ORDERED: 0.9 % Sodium Chloride 1,000 ML ONE ×2 (14:35→15:30)
[2017-11-20] MEDS ORDERED: Nitroglycerin 1,000 MCG/10 ML VIAL IV ONE (15:30)
[2017-11-20] MEDS ORDERED: ISOVUE-370 200 ML INFUS..BTL IV ONE (15:30)
[2017-11-20] MEDS ORDERED: *HR* Heparin 10,000 UNIT/10 ML VIAL ONE (15:30)
[2017-11-20] MEDS ORDERED: Heparin 1,000 UNITS/500 mL 500 ML ONE (15:30)
--- NOTE | 2017-11-20 15:46 | Invasive Diagnostic Lab Proc ---
Name: Linda Acosta Date of Study: 11/20/2017 Date: 1960 Ht: 59.8in Medical Record#: [id number] Age: 57 Wt: 143.30lb Gender: Female BSA: 1.62 Order #: [id number] BMI: 28.13 Physicians Procedure Physician: Bernard York MD Referring MD: Referring MD: Staff Name Position Time In Frank Donta RN Monitor 02:29 PM Comfort Herbert RN Cisco Network Engineer 02:29 PM Mary Reddy RT Scrub 02:29 PM Indications Indication Unstable Angina Procedures Performed Procedure L HRT ARTERY/VENTRICLE ANGIO Pre-Procedure Checklist Informed consent is complete signed and on chart. H&P is on chart. ID band is on and ID verified with patient. Patient NPO for procedure The procedure was described for the patient and questions were answered. ECG is on chart. Plan of Care Patient will tolerate the procedure without complications. Adequate level of comfort will be maintained. Hemodynamics will remain stable Patient will recover from procedure without complications. Respiratory function will be maintained. Cardiac rhythm will remain stable. Patient temperature will be maintained. Patient and/or family have verbalized understanding of the procedure. Patient Education Chief Complaint/Reason for Test: Cardiac Cath Developmental Category: Adult (18-64 years) Developmentally Appropriate for Age: Yes Learning Barriers: None Education Needs: Procedure Education Method: Verbal Information Taught: Cardiac Cath Educational Evaluation: Able to repeat information Intravenous Access Time IV Size Location DC'd Fluid/Drip Rate Units RN 20g 1 1/4" Patent On Arrival Rt Arm 0.9NaCl Allergies Opioids - Morphine Analogues Sulfa (Sulfonamide Antibiotics) codeine hydrocodone acetaminophen Levofloxacin SULFA (sulfonamide) TAPE Cephalexin Tetracycline morphine NSAIDS (Non-Steroidal Anti-Inflamma Vital Signs Time BP (mmHg) HR (bpm) O2 Sat. RR (bpm) LOC 02:37 PM / % 5 = Fully awake and oriented or at pre-proc level 02:37 PM / % 4 = Oriented but drowsy 02:39 PM 115 / 72 % 02:44 PM 125 / 71 65 100 % 14 02:49 PM 121 / 69 66 % 13 02:54 PM 116 / 57 66 98 % 18 03:00 PM 130 / 99 65 % 23 03:05 PM 100 / 67 90 % 23 03:09 PM 81 / 49 75 % 10 Procedural Medications Time Medication Dose Units Method Given By 02:38 PM Oxygen 2 L/min nasal cannula Comfort Herbert RN 02:38 PM Versed 1 mg Intravenous Comfort Herbert RN 02:40 PM Versed 1 mg Intravenous Comfort Herbert RN 02:41 PM Benadryl 25 mg Intravenous Comfort Herbert RN 02:47 PM Lidocaine 2% 20 ml Subcutaneous Bernard York MD 02:51 PM Versed 0.5 mg Intravenous Comfort Herbert RN 03:05 PM Versed 1 mg Intravenous Comfort Herbert RN 03:10 PM Versed 1 mg Intravenous Comfort Herbert RN ASA Classification: CLASS II- Mild systemic disease (i.e. well-controlled diabetes, hypertension, asthma, cigarette smoking) Delia Score Preprocedure Postprocedure Activity 2- Moves 4 extremities sustained head lift Activity 2- Moves 4 extremities sustained head lift Circulation 2- SBP +/= 20 points of pre-anesthetic level Circulation 2- SBP +/= 20 points of pre-anesthetic level Consciousness 2- Awake and alert oriented x 3 Consciousness 2- Awake and alert oriented x 3 O2 Saturation 2- Able to maintain O2 satruation of 92% on room air O2 Saturation 2- Able to maintain O2 satruation of 92% on room air Respiratory 2- Able to deep breathe and cough well Respiratory 2- Able to deep breathe and cough well Total Score 10 Total Score 10 Contrast Agent: Isovue Procedure Log Time Note Enter By 02:28 PM Pt arrived to laborer powerhouse 2 at 14:28 [email or web address] 02:29 PM Donta Marie RN Position: Monitor Time in: 14:29 02:29 PM Comfort Herbert RN Position: Cisco Network Engineer Time in: 14:29 ner 02:29 PM Mary Reddy Position: Scrub Time in: 14:29 ner 02:29 PM Patient charges- Angio tray pack, Navilyst 3mm J, Pulse Oximetry and ACIST tubing and transducer kk 02:33 PM Physician arrived 14:33 [email or web address] 02:33 PM Meet and greet completed kk 02:33 PM Sign in performed according to hospital policy. 02:33 PM Procedure start 14:33 kkall 02:33 PM Hair removed from procedure site in holding area using clippers. Bilateral groin prepped with Chloraprep by Mary Reddy, then patient was draped. Skin intact. :37 PM Time: 14:37 Patient comfortable and pain free: Yes :37 PM Time: 14:37LOC: 5 = Fully awake and oriented or at pre-proc level :37 PM Clinical Presentation: Unstable angina :37 PM ASA Class CLASS II- Mild systemic disease (i.e. well-controlled diabetes, hypertension, asthma, cigarette smoking) :38 PM Time: 14:38 Oxygen on at 2 L/min per nasal cannula by Comfort Herbert RN bailey 02:39 PM CathStat 02:39 PM Vitals capture started with the following parameters, Patient=Adult, Interval=5 min, Initial Hqnehggx=809 mmHg, Deflation Rate=5 mmHg, Cuff placed on Right Arm 02:39 PM Time: 14:38 Versed 1 mg Intravenous Given by Comfort Herbert RN 02:39 PM YJEF=348/72 mmhg, Comment=NSR 02:40 PM Time: 14:40 Versed 1 mg Intravenous Given by Comfort Herbert RN 02:41 PM Recorded ECG: HR=61 Condition=Condition 1 02:42 PM Time: 14:41 Benadryl 25 mg Intravenous Given by Comfort Herbert RN bailey 02:44 PM HR=65 bpm, UZRD=150/71 mmhg, BnP0=085 %, Resp=14 B/min, Comment=NSR 02:45 PM Pressure channel 1 zeroed. 02:45 PM Time out performed according to hospital policy 02:48 PM Time: 14:47 20 ml Lidocaine 2% to right groin Subcutaneous Given by Bernard York MD 02:49 PM Micro-Introducer Kit utilized for sheath placement 02:49 PM HR=66 bpm, OEHR=899/69 mmhg, Resp=13 B/min, Comment=NSR 02:49 PM Access obtained by percutaneous puncture. 5Fr 10cm [place] sheath placed in right Femoral artery. [id number] 02:50 PM 5Fr FR 4 catheter inserted over the wire [facility] 02:51 PM Time: 14:51 Versed 0.5 mg Intravenous Given by Comfort Herbert RN 02:51 PM Recorded Pressure: LV, HR=67, Condition=Condition 1 (Left Ventricle) LV 110/8/9 02:52 PM Recorded Pressure: LV, Ao, HR=70, Condition=Condition 1 (Left Ventricle) LV 97/15/19, (Aorta) Ao 123/68/89 02:52 PM Time: 14:37LOC: 4 = Oriented but drowsy kk 02:52 PM Time: 14:37 Patient comfortable and pain free: Yes [email or web address] 02:52 PM Catheter selectively placed in left ventricle kkallner 02:52 PM Catheter removed kkallner 02:53 PM 5Fr SRC catheter inserted over the wire [id number] kkallner 02:54 PM RCA angiography performed in multiple views. kkner 02:54 PM Catheter removed kkner 02:54 PM HR=66 bpm, DOHE=187/57 mmhg, SpO2=98 %, Resp=18 B/min, Comment=NSR 02:55 PM 5Fr FL 4 catheter inserted over the wire DN kk 02:56 PM LCA angiography performed in multiple views. kkner 02:56 PM Recorded Pressure: Ao, HR=64, Condition=Condition 1 (Aorta) Ao 107/63/81 02:57 PM Catheter removed kkner 02:57 PM Wire removed kk 02:57 PM Procedure completed at 14:57 [email or web address] 02:57 PM Isovue 370 - 200ml,1 Bottle(s) used. kkner 02:59 PM Arterial sheath pulled using manual compression and V+ Pad for 15 minutes by Miley York MD 02:59 PM Estimated Blood Loss: minimal [email or web address] 02:59 PM Post ECG NSR kkallner 02:59 PM Post Blood Pressure 116/57 kkallner 03:00 PM HR=65 bpm, CJTP=501/99 mmhg, Resp=23 B/min, Comment=NSR 03:01 PM 14:59 Post Pulses Bilateral DP & PT 2+ kkallner 03:01 PM Information taught Cardiac Cath kkallner 03:01 PM Education needs Procedure, Plan of Care, and Responsibilities of Patient in Care kkallner 03:01 PM Learning barriers :None kkallner 03:01 PM Education Methods Verbal kkallner 03:01 PM Education evaluation Able to repeat information kkallner 03:02 PM Plavix, Effient or Brilinta given No kkallner 03:02 PM Delay to floor No kkallner 03:05 PM HR=90 bpm, TXPO=562/67 mmhg, Resp=23 B/min, Comment=NSR 03:05 PM Time: 15:05 Versed 1 mg Intravenous Given by Comfort Herbert RN kkthom 03:09 PM HR=75 bpm, NIBP=81/49 mmhg, Resp=10 B/min 03:10 PM Patient non-compliant to what medical unit secretary had instructed. [email or web address] 03:10 PM Time: 15:10 Versed 1 mg Intravenous Given by Comfort Herbert RN kkallner 03:12 PM Pt would not sit still, infiltrated own IV during situation. kkallner 03:13 PM IV removed, no s/s bleeding. C/D/I. Bruising noted. kkallner 03:15 PM Multiple staff members holding patient to insure she would not bleed. [email or web address] 03:17 PM Vitals capture stopped. 03:24 PM no family present kkallner 03:25 PM IV Supplies used: J loop Angio Cath. kkallner 03:25 PM New IV started, 20 g R wrist kkallner 03:27 PM What is the NYHA Class? Class 2 kkallner 03:27 PM Did you address ANGELINA flow and Dominance? Yes kkallner 03:28 PM Pt relaxed a enough to get off of oil field laborer table, still not adhereing to leg straight and bedrest. kkallner 03:28 PM Coronary Dominance: Left kkallner 03:29 PM Report to be given at bedside to 3B nurse. [email or web address] 03:30 PM Patient out of room: 15:30 [email or web address] 03:35 PM Site status No bleeding/hematoma - Rt Groin as reported by Mary Reddy RT at 15:25 [email or web address] Hemodynamics Pressures Site Systolic/A Wave Diastolic/V Wave Mean LV 110 8 9 LV 97 15 19 AO 123 68 89 AO 107 63 81 Post Procedure Information Blood Pressure: 116/57 mmHg Rhythm: NSR Post procedural instructions were given Closure Device Time Device Success/Fail 11/20/2017 3:10:00 PM Manual Compression Successful Site Checks Time Location Status Staff Sheath In? Note 03:25 PM Rt Groin No bleeding/hematoma Mary Reddy RT Pulses Time Site Pre-Procedure Post-Procedure Note Bilateral DP & PT 2+ Bilateral radial 2+ 2:59:00 PM Bilateral DP & PT 2+ Updated by Mary Reddy, RT (R) on 11/20/2017 3:39:04 PM electronically signed on 11/20/2017 3:40:50 PM with status of Final
--- NOTE | 2017-11-20 18:30 | Event Note ---
Date of Encounter: 11/20/17 Time of Encounter: 16:27 - Cardiology Event Note LHC showed angiographically normal coronaries. No intervention needed. NICMP. Continue carvedilol and zestril. Currently euvolemic. Low sodium diet discussed. Out-patient f/u in 1-2 weeks will be coordinated. Cardiology will sign off. Call with questions.
--- NOTE | 2017-11-20 18:54 | Discharge Summary ---
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 11/20/17 11:43 Completed MR head/brain wo con [MR] Routine MRI 11/18/17 10:39 Completed EV echocardiogram Routine Y 11/18/17 18:43 Completed Date of Encounter: 11/20/17 Time of Encounter: 18:50 - Discharge Diagnosis (1) Acute systolic (congestive) heart failure Priority: Primary Status: Acute (2) TIA (transient ischemic attack) Priority: Primary Status: Acute Qualifiers: Transient cerebral ischemia type: other Qualified Code(s): G45.8 - Other transient cerebral ischemic attacks and related syndromes (3) COPD (chronic obstructive pulmonary disease) Priority: Secondary Status: Chronic Qualifiers: COPD type: emphysema Emphysema type: panlobular Qualified Code(s): J43.1 - Panlobular emphysema (4) Peptic ulcer disease Priority: Secondary Status: Chronic Hospital course: Ms. Acosta is a 57 year old female with history of anxiety who presented initially with strokelike symptoms. Patient had entire stroke workup which was unremarkable however echocardiogram did reveal decreased ejection fraction. Patient underwent left heart cath that revealed normal coronary arteries. Shortly after the patient signed herself out AGAINST MEDICAL ADVICE. The patient had left the hospital before I was able to discuss the risks of her signing out AGAINST MEDICAL ADVICE. - Time Spent with Patient Total time spent providing and/or coordinating discharge services: - Discharge Medications Home Medications: Aspirin 81 mg PO DAILY 05/26/15 [History] Atorvastatin [Lipitor] 10 mg PO HS #0 05/26/15 [History] Butalb/Acetaminophen/Caffeine [Fioricet 50-300-40 mg Capsule] 1 mg PO DAILY PRN 05/26/15 [History] Carvedilol [Coreg] 3.125 mg PO BIDWM 05/26/15 [History] Citalopram Hydrobromide [Celexa] 20 mg PO DAILY 05/26/15 [History] Digoxin [Lanoxin] 0.125 mg PO DAILY 05/26/15 [History] LORazepam [Ativan] 0.25 mg PO DAILY 05/26/15 [History] Methocarbamol [Robaxin] 750 mg PO Q8HR 05/26/15 [History] Ondansetron [Zofran] 4 mg PO Q4HR PRN 05/26/15 [History] Ropinirole [Requip] 3 mg PO DAILY 05/26/15 [History] Levothyroxine Sodium [Tirosint] 50 mcg PO DAILY 08/04/17 [History] Omeprazole [PriLOSEC] 20 mg PO DAILY capsule. 08/05/17 [Rx] Sucralfate [Carafate] 1 gm PO QIDAC #20 tablet 08/26/17 [Rx] Promethazine [Phenergan] 25 mg PO Q8HR PRN 11/20/17 [History] Allergies/Adverse Reactions: 3 Allergy/AdvReac Type Severity Reaction Status Date / Time cephalexin [From Keflex] Allergy Hives Verified 11/18/17 03:48 Sulfa (Sulfonamide Allergy Hives Verified 11/18/17 03:48 Antibiotics) Tetracycline Allergy Hives Verified 11/18/17 03:48 acetaminophen [From Vicodin] AdvReac Migraine Verified 11/20/17 08:53 adhesive AdvReac Rash Verified 11/18/17 06:17 Amoxicillin [From Augmentin] AdvReac Diarrhea Verified 11/20/17 08:53 clavulanic acid AdvReac Diarrhea Verified 11/20/17 08:53 [From Augmentin] codeine AdvReac Abdominal Verified 11/20/17 08:53 Pain hydrocodone [From Vicodin] AdvReac Migraine Verified 11/20/17 08:53 levofloxacin [From Levaquin] AdvReac Diarrhea Verified 11/20/17 08:53 morphine AdvReac Abdominal Verified 11/20/17 08:53 Pain NSAIDS (Non-Steroidal AdvReac See Verified 11/18/17 03:48 Anti-Inflamma Comments tape Allergy Rash Uncoded 11/18/17 03:48 emycin AdvReac Abdominal Uncoded 11/20/17 08:53 Pain Date of admission: 11/18/17 06:19 Primary care physician: PCP NONE Consults: 11/20/17 09:30 Consult to Cardiology [CONS] Routine Comment: Consulting Provider: Cardiology [place] Reason for Consult: significant drop in EF. Time Notified: 09:30 Call Completed: Yes Discharging clinician: Rikki Salinas Anticipated date of discharge: 11/20/17 - Constitutional Vitals: Temp Pulse Resp BP Pulse Ox 98.6 F 70 16 119/70 95 11/20/17 18:36 11/20/17 18:36 11/20/17 18:36 11/20/17 18:36 11/20/17 18:36 - Patient Status Disposition: Left Against Medical Advice Condition: Good Overall status at discharge: patient is not back to baseline - Discharge Instructions Instructions: Transient Ischemic Attack (DC), Chest Pain (DC), Left Heart Catheterization (DC), Heart Healthy Diet (DC), Generalized Anxiety Disorder (DC) Follow Up With: NONE,PCP [Primary Care Provider] - <Rocky Jimenez - Last Filed: 11/28/17 09:50> Date of Encounter: 11/20/17 - Discharge Diagnosis (1) Acute systolic (congestive) heart failure Status: Acute (2) TIA (transient ischemic attack) Status: Acute Qualifiers: Transient cerebral ischemia type: other Qualified Code(s): G45.8 - Other transient cerebral ischemic attacks and related syndromes (3) Migraine Status: Acute Qualifiers: Migraine type: chronic without aura Status migrainosus presence: without status migrainosus Intractability: not intractable Qualified Code(s): G43.709 - Chronic migraine without aura, not intractable, without status migrainosus (4) Peptic ulcer disease Status: Chronic (5) Acute reaction to situational stress Status: Acute Hospital course: Ms. Acosta is a 57 year old female - Time Spent with Patient Total time spent providing and/or coordinating discharge services: Date of admission: 11/18/17 06:19 Primary care physician: PCP NONE Consults: 11/20/17 09:30 Consult to Cardiology [CONS] Routine Comment: Consulting Provider: Cardiology [place] Reason for Consult: significant drop in EF. Time Notified: 09:30 Call Completed: Yes - Constitutional Vitals: Temp Pulse Resp BP Pulse Ox 97.8 F 70 16 103/49 94 11/21/17 16:13 11/21/17 16:13 11/21/17 16:13 11/21/17 16:13 11/21/17 16:13 - Attending Attestation Pt left AMA.
[2017-11-20] MEDS: Mirtazapine 15 MG TABLET PO SCH (21:13)
[2017-11-21] MEDS: Methocarbamol 750 MG TABLET PO SCH ×3 (00:13→18:08)
[2017-11-21 05:20] LABS: Basophils # 0.1 K/mcL (0.0-0.2); Basophils % 0.9 %; Eosinophils # 0.3 K/mcL (0.0-0.6); Eosinophils % 4.6 %; Hematocrit 41.9 % (35.3-44.9); Hemoglobin 13.3 g/dL (11.5-15.4); Immature Granulocytes % 0.3 % (0-4); Lymphocytes # 2.5 K/mcL (0.6-4.6); Lymphocytes % 36.5 %; Mean Corpuscular HGB Conc 31.7 g/dL (31.6-35.5); Mean Corpuscular Hemoglobin 30.1 pg (28.0-33.3); Mean Corpuscular Volume 94.8 fL (83.0-100.0); Mean Platelet Volume 10.3 fL (9.4-12.4); Monocytes # 0.5 K/mcL (0.0-1.3); Monocytes % 7.8 %; Neutrophils # 3.5 K/mcL (1.6-8.9); Platelet Count 259 K/mcL (140-400); Red Blood Count 4.42 M/mcL (3.82-4.97); Red Cell Distribution Width 13.2 % (11.5-14.5); Segmented Neutrophils % 49.9 %
[2017-11-21] MEDS: Tiotropium 18 MCG inhalation IH SCH (08:34)
[2017-11-21] MEDS: *HR* Digoxin 0.125 MG TABLET PO SCH (09:51)
[2017-11-21] MEDS: Sucralfate 1 GM TABLET PO SCH ×3 (09:51→17:42)
[2017-11-21] MEDS: Aspirin 81 MG TAB.CHEW PO SCH (09:51)
[2017-11-21] MEDS: *HR* LORazepam 0.5 MG TABLET PO PRN (13:48)
[2017-11-21 16:14] VITALS: BP 103/49
--- NOTE | 2017-11-21 18:18 | Discharge Summary ---
Date of Encounter: 11/21/17 Time of Encounter: 18:14 - Discharge Diagnosis (1) Acute reaction to situational stress Priority: Secondary Status: Acute Comments: 1 patient has been experiencing multiple life stressors with the recent passing of her financial difficulties as well as attempting to stop her house. She has been treated in the past for anxiety and depression. She denies any suicidal or homicidal ideations at this time. Advised patient to follow-up with mental health as outpatient (2) Acute systolic (congestive) heart failure Priority: Secondary Status: Acute Comments: Left heart catheter with normal coronaries patient advised to continue with carvedilol and Zestril she is currently euvolemic advised low-sodium diet patient to follow-up with cardiology (3) Weakness of right side of body Priority: Primary Status: Acute Comments: Patient presented to the ER with right-sided weakness this is Romeo on multiple occasions off and on for the past several months she has been evaluated at different facilities. She presented to our emergency department after sudden onset of right upper and lower extremity weakness. Upon arrival to the ER her symptoms have resolved. She has been under significant life stressors with the recent passing of her as well as financial difficulties. CT of head was obtained with no acute findings MRI with no evidence of acute ischemia neurology considered symptoms likely related to underlying stress advised to continue antiplatelet therapy e (4) Mitral regurgitation Priority: Secondary Status: Chronic Comments: History of possible severe MR seen on previous TTE repeat TTE at [facility] showed no significant valvular disease TTE this admission shows no significant disease Qualifiers: Cardiac valve disease etiology: etiology unspecified Qualified Code(s): I34.0 - Nonrheumatic mitral (valve) insufficiency - Discharge Medications Home Medications: Aspirin 81 mg PO DAILY 05/26/15 [History] Atorvastatin [Lipitor] 10 mg PO HS #0 05/26/15 [History] Butalb/Acetaminophen/Caffeine [Fioricet 50-300-40 mg Capsule] 1 mg PO DAILY PRN 05/26/15 [History] Carvedilol [Coreg] 3.125 mg PO BIDWM 05/26/15 [History] Citalopram Hydrobromide [Celexa] 20 mg PO DAILY 05/26/15 [History] Digoxin [Lanoxin] 0.125 mg PO DAILY 05/26/15 [History] LORazepam [Ativan] 0.25 mg PO DAILY 05/26/15 [History] Methocarbamol [Robaxin] 750 mg PO Q8HR 05/26/15 [History] Ondansetron [Zofran] 4 mg PO Q4HR PRN 05/26/15 [History] Ropinirole [Requip] 3 mg PO DAILY 05/26/15 [History] Levothyroxine Sodium [Tirosint] 50 mcg PO DAILY 08/04/17 [History] Omeprazole [PriLOSEC] 20 mg PO DAILY capsule. 08/05/17 [Rx] Sucralfate [Carafate] 1 gm PO QIDAC #20 tablet 08/26/17 [Rx] Promethazine [Phenergan] 25 mg PO Q8HR PRN 11/20/17 [History] Allergies/Adverse Reactions: 3 Allergy/AdvReac Type Severity Reaction Status Date / Time cephalexin [From Keflex] Allergy Hives Verified 11/18/17 03:48 Sulfa (Sulfonamide Allergy Hives Verified 11/18/17 03:48 Antibiotics) Tetracycline Allergy Hives Verified 11/18/17 03:48 acetaminophen [From Vicodin] AdvReac Migraine Verified 11/20/17 08:53 adhesive AdvReac Rash Verified 11/18/17 06:17 Amoxicillin [From Augmentin] AdvReac Diarrhea Verified 11/20/17 08:53 clavulanic acid AdvReac Diarrhea Verified 11/20/17 08:53 [From Augmentin] codeine AdvReac Abdominal Verified 11/20/17 08:53 Pain hydrocodone [From Vicodin] AdvReac Migraine Verified 11/20/17 08:53 levofloxacin [From Levaquin] AdvReac Diarrhea Verified 11/20/17 08:53 morphine AdvReac Abdominal Verified 11/20/17 08:53 Pain NSAIDS (Non-Steroidal AdvReac See Verified 11/18/17 03:48 Anti-Inflamma Comments tape Allergy Rash Uncoded 11/18/17 03:48 emycin AdvReac Abdominal Uncoded 11/20/17 08:53 Pain Procedures/tests Complete & Pending: Procedures Performed prior 72 hours Category Date Time Status CL Cardiac Catheterization [CL] Routine 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 Time Notified: 09:30 Call Completed: Yes Discharging clinician: Trupti White Anticipated date of discharge: 11/21/17 - Patient Status Disposition: Home, Self-Care Condition: Good - Discharge Instructions Follow Up With: NONE,PCP [Primary Care Provider] - - Diet and Activity Activity: resume usual activities as tolerated Diet: low salt diet Hospital course: Ms. Acosta is a 57 year old female presented to the ER with right-sided weakness this is Romeo on multiple occasions off and on for the past several months she has been evaluated at different facilities. She presented to our emergency department after sudden onset of right upper and lower extremity weakness. Upon arrival to the ER her symptoms have resolved. She has been under significant life stressors with the recent passing of her as well as financial difficulties. CT of head was obtained with no acute findings MRI with no evidence of acute ischemia neurology considered symptoms likely related to underlying stress advised to continue antiplatelet therapy echocardiogram was completed EF 30-35% which was decreased from previous echo cardiology was consulted patient did undergo a cardiac catheterization. Left heart catheter showed normal coronaries cardiology advised to continue carvedilol and Zestril and to follow-up in 1-2 weeks. Presently patient is not displaying any symptoms of weakness, she is alert and appropriate no focal deficits noted. She will be discharged home I did advised patient to follow-up with cardiology and neurology and to continue with home medications. Patient did request pain medication for discharge advised patient to continue home pain medications. She is hemodynamically stable at this time. - Time Spent with Patient Total time spent providing and/or coordinating discharge services: Less than 30 minutes - Constitutional Vitals: Temp Pulse Resp BP Pulse Ox 97.8 F 70 16 103/49 94 11/21/17 16:13 11/21/17 16:13 11/21/17 16:13 11/21/17 16:13 11/21/17 16:13 General appearance: Present: A&O X 3, no acute distress - Head Head exam: Present: atraumatic, normocephalic - Eye Eye exam: Present: PERRL, conjuntiva pink, sclera anicteric Pupils: Present: PERRL - Neck Neck exam general surgery: Present: supple, trachea midline. Absent: lymphadenopathy - Respiratory Respiratory exam: Present: CTAB. Absent: accessory muscle use, rales, rhonchi, wheezes - Cardiovascular Cardiovascular exam: Present: RRR, +S1, +S2. Absent: diastolic murmur, gallop, rubs, systolic murmur - GI/Abdominal GI/Abdominal exam: Present: normal bowel sounds, soft, no peritoneal signs. Absent: distended, tenderness - Extremities Exam Extremities exam: Present: warm, radial pulses palpable and symmetrical. Absent : calf tenderness, cyanotic, pedal edema - Neurological Exam Neurological exam: Present: CN II-XII intact, oriented X3, no focal deficits. Absent: pronater drift, facial droop, speech deficit - Skin Skin exam: Present: dry, intact
== END 2017-11-21 20:00 | disposition left against medical advice (07) ==
LOC: 3BNU 03:46 → EMEROO 03:46 → SUATTDRO 06:19 → 3BNU 08:09
PROVIDERS: ADMIT Family Medicine; ATTEND Internal Medicine

== ENCOUNTER 2018-02-08 13:03 | Inpatient (IN) ==
[2018-02-08 14:04] LABS: Alanine Aminotransferase 28 Units/L (7-52); Albumin/Globulin Ratio 1.6 (1.1-2.2); Alkaline Phosphatase 123 Units/L (34-104); Aspartate Amino Transferase 29 Units/L (13-39); BUN/Creatinine Ratio 17 (6-26); Bilirubin,Indirect 0.4 mg/dL (0.0-1.2); Bilirubin,Total 0.4 mg/dL (0.3-1.0); Blood Urea Nitrogen 15 mg/dL (6-20); Carbon Dioxide 18 mEq/L (23-29); Chloride 112 mEq/L (98-107); Globulin 2.5 g/dL (2.4-3.5); Glucose 69 mg/dL (70-105); Lipase 46 Units/L (11-82); Osmolality,Calculated 283 (280-300); Potassium 3.6 mEq/L (3.5-5.1); Sodium 137 mEq/L (136-145); Total Protein 6.5 g/dL (6.4-8.9); eGFR For African Americans > 60 (> 60); eGFR For Non-African Americans > 60 (> 60)
--- NOTE | 2018-02-08 16:10 | Emergency Department Note ---
Disposition Clinical Impression: Syncope Qualifiers: Syncope type: unspecified Qualified Code(s): R55 - Syncope and collapse Disposition: Admitted As Inpatient Condition: Good Time of Disposition: 17:51 General Adult HPI - General Chief complaint: ED Dizziness Stated complaint: "overheated" Time Seen by Provider: 02/08/18 14:26 Source: patient, EMS Limitations: no limitations - History of Present Illness Pain Scale: 4 - Related Data Home Medications Medication Instructions Recorded Confirmed Aspirin 81 mg PO DAILY 05/26/15 11/20/17 Atorvastatin [Lipitor] 10 mg PO HS #0 05/26/15 11/20/17 Butalb/Acetaminophen/Caffeine 1 mg PO DAILY PRN 05/26/15 11/20/17 [Fioricet 50-300-40 mg Capsule] Carvedilol [Coreg] 3.125 mg PO BIDWM 05/26/15 11/20/17 Citalopram Hydrobromide [Celexa] 20 mg PO DAILY 05/26/15 11/20/17 Digoxin [Lanoxin] 0.125 mg PO DAILY 05/26/15 11/20/17 LORazepam [Ativan] 0.25 mg PO DAILY 05/26/15 11/20/17 Methocarbamol [Robaxin] 750 mg PO Q8HR 05/26/15 11/20/17 Ondansetron [Zofran] 4 mg PO Q4HR PRN 05/26/15 11/20/17 Ropinirole [Requip] 3 mg PO DAILY 05/26/15 11/20/17 Levothyroxine Sodium [Tirosint] 50 mcg PO DAILY 08/04/17 11/20/17 Promethazine [Phenergan] 25 mg PO Q8HR PRN 11/20/17 11/20/17 Previous Rx's Medication Instructions Recorded Omeprazole [PriLOSEC] 20 mg PO DAILY capsule. 08/05/17 Sucralfate [Carafate] 1 gm PO QIDAC #20 tablet 08/26/17 Tramadol HCl [Ultram] 50 mg PO BID PRN 2 Days #4 tab 12/23/17 Famotidine [Pepcid] 20 mg PO BID #20 tablet 01/03/18 Ondansetron ODT [Zofran ODT] 4 mg SL Q6HR #10 tab.rapdis 01/03/18 Allergies Allergy/AdvReac Type Severity Reaction Status Date / Time cephalexin [From Keflex] Allergy Hives Verified 01/02/18 23:35 Sulfa (Sulfonamide Allergy Hives Verified 01/02/18 23:35 Antibiotics) Tetracycline Allergy Hives Verified 01/02/18 23:35 acetaminophen [From Vicodin] AdvReac Migraine Verified 01/02/18 23:35 adhesive AdvReac Rash Verified 01/02/18 23:35 clavulanic acid AdvReac Diarrhea Verified 01/02/18 23:35 [From Augmentin] codeine AdvReac Abdominal Verified 01/02/18 23:35 Pain hydrocodone [From Vicodin] AdvReac Migraine Verified 01/02/18 23:35 levofloxacin [From Levaquin] AdvReac Diarrhea Verified 01/02/18 23:35 morphine AdvReac Abdominal Verified 01/02/18 23:35 Pain NSAIDS (Non-Steroidal AdvReac See Verified 01/02/18 23:35 Anti-Inflamma Comments tape Allergy Rash Uncoded 11/18/17 03:48 emycin AdvReac Abdominal Uncoded 11/20/17 08:53 Pain Past Medical History - Past Medical History Medical history: Reports: arthritis, cancer, CHF, COPD, fibromyalgia, GERD, hyperlipidemia, hypertension, migraine, thyroid disease Surgical history: Reports: appendectomy, breast surgery, , cancer surgery, cholecystectomy, hysterectomy Psychiatric history: Reports: anxiety, ADHD, depression - Social History Smoking Status: Former smoker Smokeless Tobacco Status: No Alcohol use: Reports: none Drug use: Reports: none Physical Exam - General Limitations: no limitations General appearance: alert, in no apparent distress Course Vital Signs Temperature 98.1 F 02/08/18 13:05 Pulse Rate 98 02/08/18 13:05 Respiratory Rate 16 02/08/18 13:05 Blood Pressure 93/69 02/08/18 13:05 O2 Sat by Pulse Oximetry 98 02/08/18 13:05 Temperature 98.1 F 02/08/18 13:07 Pulse Rate 98 02/08/18 13:07 Respiratory Rate 16 02/08/18 13:07 Blood Pressure 93/69 02/08/18 13:07 O2 Sat by Pulse Oximetry 98 02/08/18 13:07 Oxygen Delivery Oxygen Delivery Room Air Medical Decision Making - Lab Data Result diagrams: 02/08/18 16:07 02/08/18 13:24 Lab Results 02/08/18 02/08/18 02/08/18 Range/Units 13:24 13:52 16:07 WBC 6.9 (4.3-11.1) K/mcL RBC 4.36 (3.82-4.97) M/mcL Hgb 13.5 (11.5-15.4) g/dL Hct 40.4 (35.3-44.9) % MCV 92.7 (83.0-100.0) fL MCH 31.0 (28.0-33.3) pg MCHC 33.4 (31.6-35.5) g/dL RDW 13.5 (11.5-14.5) % Plt Count 196 (140-400) K/mcL MPV 10.1 (9.4-12.4) fL Immature Gran % 0.3 (0-4) % Seg Neutrophils % 62.2 % Lymphocytes % 25.9 % Monocytes % 8.7 % Eosinophils % 2.2 % Basophils % 0.7 % Neutrophils # 4.3 (1.6-8.9) K/mcL Lymphocytes # 1.8 (0.6-4.6) K/mcL Monocytes # 0.6 (0.0-1.3) K/mcL Eosinophils # 0.2 (0.0-0.6) K/mcL Basophils # 0.1 (0.0-0.2) K/mcL Sodium 137 (136-145) mEq/L Potassium 3.6 (3.5-5.1) mEq/L Chloride 112 H (98-107) mEq/L Carbon Dioxide 18 L (23-29) mEq/L BUN 15 (6-20) mg/dL Creatinine 0.89 (0.60-1.20) mg/dL Est GFR ( Amer) > 60 (> 60) Est GFR (Non-Af Amer) > 60 (> 60) BUN/Creatinine Ratio 17 (6-26) Glucose 69 L (70-105) mg/dL Calculated Osmolality 283 (280-300) Calcium 9.0 (8.6-10.3) mg/dL Total Bilirubin 0.4 (0.3-1.0) mg/dL Direct Bilirubin 0.0 (0.0-0.2) mg/dL Indirect Bilirubin 0.4 (0.0-1.2) mg/dL AST 29 (13-39) Units/L ALT 28 (7-52) Units/L Alkaline Phosphatase 123 H (34-104) Units/L Troponin I (< 0.04) ng/mL Serum Total Protein 6.5 (6.4-8.9) g/dL Albumin 4.0 (3.5-5.7) g/dL Globulin 2.5 (2.4-3.5) g/dL Albumin/Globulin Ratio 1.6 (1.1-2.2) Lipase 46 (11-82) Units/L Urine Color (Yellow) Urine Clarity (Clear) Urine pH (5.0-8.0) pH Units Ur Specific Dodge (1.010-1.025) Urine Protein (Neg-Trace) mg/dL Urine Glucose (UA) (Normal) mg/dL Urine Ketones (Negative) mg/dL Urine Blood (Negative) Urine Nitrite (Negative) Urine Bilirubin (Negative) Urine Urobilinogen (Normal) mg/dL Ur Leukocyte Esterase (Negative) Urine Microscopic RBC (0-3) per hpf Urine Microscopic WBC (0-3) per hpf Ur Squamous Epith Cells (None-Few) per lpf Urine Bacteria (None-Few) per hpf Hyaline Casts (None-Few) per lpf Ur Culture Indicated? (NO) Specimen Rejected Clotted 02/08/18 02/08/18 Range/Units 16:07 16:45 WBC (4.3-11.1) K/mcL RBC (3.82-4.97) M/mcL Hgb (11.5-15.4) g/dL Hct (35.3-44.9) % MCV (83.0-100.0) fL MCH (28.0-33.3) pg MCHC (31.6-35.5) g/dL RDW (11.5-14.5) % Plt Count (140-400) K/mcL MPV (9.4-12.4) fL Immature Gran % (0-4) % Seg Neutrophils % % Lymphocytes % % Monocytes % % Eosinophils % % Basophils % % Neutrophils # (1.6-8.9) K/mcL Lymphocytes # (0.6-4.6) K/mcL Monocytes # (0.0-1.3) K/mcL Eosinophils # (0.0-0.6) K/mcL Basophils # (0.0-0.2) K/mcL Sodium (136-145) mEq/L Potassium (3.5-5.1) mEq/L Chloride (98-107) mEq/L Carbon Dioxide (23-29) mEq/L BUN (6-20) mg/dL Creatinine (0.60-1.20) mg/dL Est GFR ( Amer) (> 60) Est GFR (Non-Af Amer) (> 60) BUN/Creatinine Ratio (6-26) Glucose (70-105) mg/dL Calculated Osmolality (280-300) Calcium (8.6-10.3) mg/dL Total Bilirubin (0.3-1.0) mg/dL Direct Bilirubin (0.0-0.2) mg/dL Indirect Bilirubin (0.0-1.2) mg/dL AST (13-39) Units/L ALT (7-52) Units/L Alkaline Phosphatase (34-104) Units/L Troponin I < 0.03 (< 0.04) ng/mL Serum Total Protein (6.4-8.9) g/dL Albumin (3.5-5.7) g/dL Globulin (2.4-3.5) g/dL Albumin/Globulin Ratio (1.1-2.2) Lipase (11-82) Units/L Urine Color Yellow (Yellow) Urine Clarity Clear (Clear) Urine pH 6.5 (5.0-8.0) pH Units Ur Specific Dodge 1.010 (1.010-1.025) Urine Protein Negative (Neg-Trace) mg/dL Urine Glucose (UA) Normal (Normal) mg/dL Urine Ketones Negative (Negative) mg/dL Urine Blood Negative (Negative) Urine Nitrite Negative (Negative) Urine Bilirubin Negative (Negative) Urine Urobilinogen Normal (Normal) mg/dL Ur Leukocyte Esterase Trace H (Negative) Urine Microscopic RBC 0-3 (0-3) per hpf Urine Microscopic WBC 0-3 (0-3) per hpf Ur Squamous Epith Cells Moderate H (None-Few) per lpf Urine Bacteria None Seen (None-Few) per hpf Hyaline Casts None Seen (None-Few) per lpf Ur Culture Indicated? YES A (NO) Specimen Rejected Attestation Statement - Attestation Attestation: I, Mario Dawson DO, examined this patient [id number] and my medical decision-making was reviewed with Dr. Romeo Cohen, Resident Physician. I agree with the documented findings, disposition and treatment plan as described except to the extent set forth below. Please see my progress notes for details. 57-year-old female presents to emergency room for evaluation of a syncopal event at home. Patient felt that it might of been heat induced and she is outside doing work in regard. Patient denied any other symptoms prior to the events outside of lightheadedness. She does not remember. Time today during the event. Currently she is denying chest pain shortness of breath headache vision changes nausea vomiting or diarrhea. Denies any fevers or chills. She has not had any recent illnesses she has not had any new medications or medication changes she denies any trauma injury or other inciting incident or symptoms here today. Patient presents to emergency room alert and oriented she answers questions appropriately head is atraumatic and mucous membranes are slightly dry. Trachea is midline her oral pharynx is patent lungs are clear to auscultation heart is regular abdomen is soft was all 4 extremities with purpose of this time. Patient will have screening evaluation a CBC chemistry troponin EKG CT imaging of the head and chest x-ray to be completed at this time for the syncopal event her today. She will most likely require admission once this workup and treatment course are established. Patient does not require any emergent intervention at this time. See detailed documentation of the physical exam, medical intervention, medical decision-making and disposition in the resident physician's note. No critical care applied to the patient's treatment course at this time. 1700 Patient has negative laboratory workup at this time. Patient will be admitted for syncope unbeknownst etiology here today. Patient otherwise clinically stable. No other acute issues noted this time. Hospitalist was contacted and happy to admit the patient for further management.
[2018-02-08 16:20] LABS: Basophils # 0.1 K/mcL (0.0-0.2); Basophils % 0.7 %; Eosinophils # 0.2 K/mcL (0.0-0.6); Eosinophils % 2.2 %; Hematocrit 40.4 % (35.3-44.9); Hemoglobin 13.5 g/dL (11.5-15.4); Immature Granulocytes % 0.3 % (0-4); Lymphocytes # 1.8 K/mcL (0.6-4.6); Lymphocytes % 25.9 %; Mean Corpuscular HGB Conc 33.4 g/dL (31.6-35.5); Mean Corpuscular Volume 92.7 fL (83.0-100.0); Mean Platelet Volume 10.1 fL (9.4-12.4); Monocytes # 0.6 K/mcL (0.0-1.3); Monocytes % 8.7 %; Neutrophils # 4.3 K/mcL (1.6-8.9); Platelet Count 196 K/mcL (140-400); Red Blood Count 4.36 M/mcL (3.82-4.97); Red Cell Distribution Width 13.5 % (11.5-14.5); Segmented Neutrophils % 62.2 %
--- NOTE | 2018-02-08 16:23 | Emergency Department Note ---
Disposition Clinical Impression: Syncope Qualifiers: Syncope type: unspecified Qualified Code(s): R55 - Syncope and collapse Disposition: Admitted As Inpatient Condition: Good Referrals: Jose Horton MD [Partnered Physician] - Forms: ED Satisfaction Letter Time of Disposition: 17:02 Syncope HPI - General Chief Complaint: ED Dizziness Stated Complaint: "overheated" Time Seen by Provider: 02/08/18 14:26 Source: patient, EMS Limitations: no limitations Nursing Notes Reviewed: Yes Vital Signs Reviewed: Yes - History of Present Illness HPI Narrative: Mrs. Acosta, a 57 yo female, presents from home via EMS after a single episode. Patient is spent approximately an hour and a half with moderate to heavy exertion cleaning her front patio of garbage. She felt prodromal symptoms of lightheadedness, dyspnea, weakness. She grabbed a nearby railing and came to the grass. She has not been drinking any water today; she has had several cans of soda pop PMH: Congestive heart failure, MR, lipidemia. Remote history of TIA. No history of diabetes, hypertension, CAD, or ACS. ROS: Positive: As above Negative: Unilateral weakness, confusion, changes in vision, chest pain, palpitations, unusual back pain, any pains or other complaints at this time. - Related Data Home Medications Medication Instructions Recorded Confirmed Aspirin 81 mg PO DAILY 05/26/15 11/20/17 Atorvastatin [Lipitor] 10 mg PO HS #0 05/26/15 11/20/17 Butalb/Acetaminophen/Caffeine 1 mg PO DAILY PRN 05/26/15 11/20/17 [Fioricet 50-300-40 mg Capsule] Carvedilol [Coreg] 3.125 mg PO BIDWM 05/26/15 11/20/17 Citalopram Hydrobromide [Celexa] 20 mg PO DAILY 05/26/15 11/20/17 Digoxin [Lanoxin] 0.125 mg PO DAILY 05/26/15 11/20/17 LORazepam [Ativan] 0.25 mg PO DAILY 05/26/15 11/20/17 Methocarbamol [Robaxin] 750 mg PO Q8HR 05/26/15 11/20/17 Ondansetron [Zofran] 4 mg PO Q4HR PRN 05/26/15 11/20/17 Ropinirole [Requip] 3 mg PO DAILY 05/26/15 11/20/17 Levothyroxine Sodium [Tirosint] 50 mcg PO DAILY 08/04/17 11/20/17 Promethazine [Phenergan] 25 mg PO Q8HR PRN 11/20/17 11/20/17 Previous Rx's Medication Instructions Recorded Omeprazole [PriLOSEC] 20 mg PO DAILY capsule. 08/05/17 Sucralfate [Carafate] 1 gm PO QIDAC #20 tablet 08/26/17 Tramadol HCl [Ultram] 50 mg PO BID PRN 2 Days #4 tab 12/23/17 Famotidine [Pepcid] 20 mg PO BID #20 tablet 01/03/18 Ondansetron ODT [Zofran ODT] 4 mg SL Q6HR #10 tab.rapdis 01/03/18 Allergies Allergy/AdvReac Type Severity Reaction Status Date / Time cephalexin [From Keflex] Allergy Hives Verified 01/02/18 23:35 Sulfa (Sulfonamide Allergy Hives Verified 01/02/18 23:35 Antibiotics) Tetracycline Allergy Hives Verified 01/02/18 23:35 acetaminophen [From Vicodin] AdvReac Migraine Verified 01/02/18 23:35 adhesive AdvReac Rash Verified 01/02/18 23:35 clavulanic acid AdvReac Diarrhea Verified 01/02/18 23:35 [From Augmentin] codeine AdvReac Abdominal Verified 01/02/18 23:35 Pain hydrocodone [From Vicodin] AdvReac Migraine Verified 01/02/18 23:35 levofloxacin [From Levaquin] AdvReac Diarrhea Verified 01/02/18 23:35 morphine AdvReac Abdominal Verified 01/02/18 23:35 Pain NSAIDS (Non-Steroidal AdvReac See Verified 01/02/18 23:35 Anti-Inflamma Comments tape Allergy Rash Uncoded 11/18/17 03:48 emycin AdvReac Abdominal Uncoded 11/20/17 08:53 Pain All systems ED: reviewed and negative except as stated. Review of Systems: As Per HPI Past Medical History - Past Medical History Medical history: Reports: arthritis, cancer, CHF, COPD, fibromyalgia, GERD, hyperlipidemia, hypertension, migraine, thyroid disease Surgical history: Reports: appendectomy, breast surgery, , cancer surgery, cholecystectomy, hysterectomy Psychiatric history: Reports: anxiety, ADHD, depression - Social History Smoking Status: Former smoker Smokeless Tobacco Status: No Alcohol use: Reports: none Drug use: Reports: none Physical Exam Vital Signs Reviewed General: Patient is alert, oriented, and in no acute distress. Head: atraumatic, normocephalic Eye: normal appearance, PERRL, EOMI, no scleral icterus, no conjunctival injection ENT: mucous membranes dry, normal external ear exam Neck: normal inspection, trachea midline, full ROM Chest: normal inspection, symmetric chest rise Respiratory: Good respiratory effort. Bilateral breath sounds are clear without wheezing, crackles, or rhonchi. Cardiovascular: Regular rate and rhythm. No clicks, rubs, gallops, or murmors. Normal heart sounds. Abdomen: Bowel sounds present normoactive x-4 quadrants. Abdomen is soft, nondistended, and nontender. No guarding or rebound. Musculoskeletal: Spontaneously moving all extremities. Strength 5/5 and equal in upper and lower extremities. No C-spine, T-spine, L-spine tenderness. Skin: warm, dry, intact. Neuro: Alert and oriented x4. Sensation light touch intact and equal bilaterally. No pronator drift. No limb ataxia. Psych: Patient's affect is appropriate for situation. - General Limitations: no limitations General appearance: alert, in no apparent distress Course Course Narrative: Patient stories concerning for true syncope. She did have prodromal symptoms thus lowered concern for cardiac etiology however there is concern for her unwitnessed fall. EKG dated 08 Feb 2018 at 13:19 interpreted as sinus rhythm with rate of 91. Normal intervals. Normal axis. Nonspecific ST-T changes. Compared to previous dated 01/03/2018 showing no acute ischemic changes or comparison. Chest x-ray and CT head are unremarkable. I discussed the patient with the admitting hospitalist, Dr. Cheney, who agrees to accept the patient for continued evaluation and management. Chest X-Ray 02/08/18 14:49 IMPRESSION: 1. No active pulmonary disease. D/ / Tristan Royal MD / Tristan Royal MD Interpreting Provider: Tristan Royal MD Head CT 02/08/18 15:00 IMPRESSION: No acute intracranial abnormality. D/ 02/08/2018 16:42:55 Gwen Ordaz MD / earnold Interpreting Provider: Gwen Ordaz MD Vital Signs Temperature 98.1 F 02/08/18 13:05 Pulse Rate 98 02/08/18 13:05 Respiratory Rate 16 02/08/18 13:05 Blood Pressure 93/69 02/08/18 13:05 O2 Sat by Pulse Oximetry 98 02/08/18 13:05 Temperature 98.1 F 02/08/18 13:07 Pulse Rate 98 02/08/18 13:07 Respiratory Rate 16 02/08/18 13:07 Blood Pressure 93/69 02/08/18 13:07 O2 Sat by Pulse Oximetry 98 02/08/18 13:07 Oxygen Delivery Oxygen Delivery Room Air Syncope - Lab Data Result diagrams: 02/08/18 16:07 02/08/18 13:24 Lab Results 02/08/18 02/08/18 02/08/18 Range/Units 13:24 13:52 16:07 WBC 6.9 (4.3-11.1) K/mcL RBC 4.36 (3.82-4.97) M/mcL Hgb 13.5 (11.5-15.4) g/dL Hct 40.4 (35.3-44.9) % MCV 92.7 (83.0-100.0) fL MCH 31.0 (28.0-33.3) pg MCHC 33.4 (31.6-35.5) g/dL RDW 13.5 (11.5-14.5) % Plt Count 196 (140-400) K/mcL MPV 10.1 (9.4-12.4) fL Immature Gran % 0.3 (0-4) % Seg Neutrophils % 62.2 % Lymphocytes % 25.9 % Monocytes % 8.7 % Eosinophils % 2.2 % Basophils % 0.7 % Neutrophils # 4.3 (1.6-8.9) K/mcL Lymphocytes # 1.8 (0.6-4.6) K/mcL Monocytes # 0.6 (0.0-1.3) K/mcL Eosinophils # 0.2 (0.0-0.6) K/mcL Basophils # 0.1 (0.0-0.2) K/mcL Sodium 137 (136-145) mEq/L Potassium 3.6 (3.5-5.1) mEq/L Chloride 112 H (98-107) mEq/L Carbon Dioxide 18 L (23-29) mEq/L BUN 15 (6-20) mg/dL Creatinine 0.89 (0.60-1.20) mg/dL Est GFR ( Amer) > 60 (> 60) Est GFR (Non-Af Amer) > 60 (> 60) BUN/Creatinine Ratio 17 (6-26) Glucose 69 L (70-105) mg/dL Calculated Osmolality 283 (280-300) Calcium 9.0 (8.6-10.3) mg/dL Total Bilirubin 0.4 (0.3-1.0) mg/dL Direct Bilirubin 0.0 (0.0-0.2) mg/dL Indirect Bilirubin 0.4 (0.0-1.2) mg/dL AST 29 (13-39) Units/L ALT 28 (7-52) Units/L Alkaline Phosphatase 123 H (34-104) Units/L Troponin I (< 0.04) ng/mL Serum Total Protein 6.5 (6.4-8.9) g/dL Albumin 4.0 (3.5-5.7) g/dL Globulin 2.5 (2.4-3.5) g/dL Albumin/Globulin Ratio 1.6 (1.1-2.2) Lipase 46 (11-82) Units/L Specimen Rejected Clotted 02/08/18 Range/Units 16:07 WBC (4.3-11.1) K/mcL RBC (3.82-4.97) M/mcL Hgb (11.5-15.4) g/dL Hct (35.3-44.9) % MCV (83.0-100.0) fL MCH (28.0-33.3) pg MCHC (31.6-35.5) g/dL RDW (11.5-14.5) % Plt Count (140-400) K/mcL MPV (9.4-12.4) fL Immature Gran % (0-4) % Seg Neutrophils % % Lymphocytes % % Monocytes % % Eosinophils % % Basophils % % Neutrophils # (1.6-8.9) K/mcL Lymphocytes # (0.6-4.6) K/mcL Monocytes # (0.0-1.3) K/mcL Eosinophils # (0.0-0.6) K/mcL Basophils # (0.0-0.2) K/mcL Sodium (136-145) mEq/L Potassium (3.5-5.1) mEq/L Chloride (98-107) mEq/L Carbon Dioxide (23-29) mEq/L BUN (6-20) mg/dL Creatinine (0.60-1.20) mg/dL Est GFR ( Amer) (> 60) Est GFR (Non-Af Amer) (> 60) BUN/Creatinine Ratio (6-26) Glucose (70-105) mg/dL Calculated Osmolality (280-300) Calcium (8.6-10.3) mg/dL Total Bilirubin (0.3-1.0) mg/dL Direct Bilirubin (0.0-0.2) mg/dL Indirect Bilirubin (0.0-1.2) mg/dL AST (13-39) Units/L ALT (7-52) Units/L Alkaline Phosphatase (34-104) Units/L Troponin I < 0.03 (< 0.04) ng/mL Serum Total Protein (6.4-8.9) g/dL Albumin (3.5-5.7) g/dL Globulin (2.4-3.5) g/dL Albumin/Globulin Ratio (1.1-2.2) Lipase (11-82) Units/L Specimen Rejected Attestation Statement - Attestation Attestation: I, Mario Dawson DO, examined this patient [id number] and my medical decision-making was reviewed with Dr. Romoe Cohen, Resident Physician. I agree with the documented findings, disposition and treatment plan as described except to the extent set forth below. Please see my progress notes for details.
[2018-02-08] MEDS ORDERED: Ondansetron ODT 4 MG TAB.RAPDIS SL ONE (16:47)
[2018-02-08 17:08] LABS: Bilirubin,Urine Negative (Negative); Blood,Urine Negative (Negative); Clarity,Urine Clear (Clear); Color,Urine Yellow (Yellow); Glucose,Urine (UA) Normal (Normal); Ketones,Urine Negative (Negative); Leukocyte Esterase,Urine Trace (Negative); Nitrite,Urine Negative (Negative); PH,Urine 6.5 pH Units (5.0-8.0); Protein,Urine Negative (Neg-Trace); Urobilinogen,Urine Normal (Normal)
[2018-02-08 17:11] LABS: Bacteria,Urine None Seen per hpf (None-Few); Hyaline Casts,Urine None Seen per lpf (None-Few); RBC,Urine 0-3 per hpf (0-3); Squamous Epithelial Cell,Urine Moderate per lpf (None-Few); WBC,Urine 0-3 per hpf (0-3)
[2018-02-08] MEDS ORDERED: Naloxone 0.4 MG/ML INJ IVP PRN (17:23)
--- NOTE | 2018-02-08 17:37 | Internal Med History&Physical ---
<Vangie Ballesteros Jag - Last Filed: 02/08/18 17:29> Date of Encounter: 02/08/18 Time of Encounter: 17:29 Internal Medicine - H&P: HPI Admitted From: Home Plans for Post Hospital Care: Home History of present illness: Ms. Acosta is a 57 year old female who was outside working in her yard. As she was carrying some items she became dizzy and fell on the ground. She indicated that her helped her up and then he drove her to hospital. The patient neuro check is negative and she has no focal deficits. She is alert and oriented. She indicates that she has had hypotension in the past and intermittent episodes of dizziness. She denied taking anitvert. She also has a hx of CHF, today the lungs are clear and no pedal edema noted. Bp in the ED was 123/67. She indicated that she was having some nausea prior to arrival that is persisting. Will start zofran IV. EKG showed SR with Left atrial enlargement. Non specific T wave abnormality. The rate was controlled @ 91 bpm. She indicated that she feels dry. Will get serial cardiac enzymes, however the cause of the syncope is likely medication use along with some dehydration. Orthostatic bp's daily. Continue IVF. Past Med Surg Social Fam HX - Past Medical History Medical history: arthritis, cancer, CHF, COPD, fibromyalgia, GERD, hyperlipidemia, hypertension, migraine, thyroid disease Psychiatric history: anxiety, ADHD, depression - Past Surgical History Surgical History: appendectomy, breast surgery, , cancer surgery, cholecystectomy, hysterectomy - Social History Smoking Status: Former smoker Smokeless Tobacco Status: No Alcohol use: none Drug use: none - Family History Mother Living Status: Hx Family Cardiac Disorders: Yes (chf) Hx Family Respiratory Disorders: Yes (copd) Hx Family Cancer: Yes (breast uterine) Internal Medicine - H&P: Meds Aspirin 81 mg PO DAILY 05/26/15 [History] Atorvastatin [Lipitor] 10 mg PO HS #0 05/26/15 [History] Butalb/Acetaminophen/Caffeine [Fioricet 50-300-40 mg Capsule] 1 mg PO DAILY PRN 05/26/15 [History] Carvedilol [Coreg] 3.125 mg PO BIDWM 05/26/15 [History] Citalopram Hydrobromide [Celexa] 20 mg PO DAILY 05/26/15 [History] Digoxin [Lanoxin] 0.125 mg PO DAILY 05/26/15 [History] LORazepam [Ativan] 0.25 mg PO DAILY PRN 05/26/15 [History] Methocarbamol [Robaxin] 750 mg PO Q8HR PRN 05/26/15 [History] Ondansetron [Zofran] 4 mg PO Q4HR PRN 05/26/15 [History] Ropinirole [Requip] 3 mg PO DAILY PRN 05/26/15 [History] Levothyroxine Sodium [Tirosint] 50 mcg PO DAILY 08/04/17 [History] Omeprazole [PriLOSEC] 20 mg PO DAILY capsule. 08/05/17 [Rx] Sucralfate [Carafate] 1 gm PO QIDAC #20 tablet 08/26/17 [Rx] 3 Allergy/AdvReac Type Severity Reaction Status Date / Time cephalexin [From Keflex] Allergy Hives Verified 01/02/18 23:35 Sulfa (Sulfonamide Allergy Hives Verified 01/02/18 23:35 Antibiotics) Tetracycline Allergy Hives Verified 01/02/18 23:35 acetaminophen [From Vicodin] AdvReac Migraine Verified 01/02/18 23:35 adhesive AdvReac Rash Verified 01/02/18 23:35 clavulanic acid AdvReac Diarrhea Verified 01/02/18 23:35 [From Augmentin] codeine AdvReac Abdominal Verified 01/02/18 23:35 Pain hydrocodone [From Vicodin] AdvReac Migraine Verified 01/02/18 23:35 levofloxacin [From Levaquin] AdvReac Diarrhea Verified 01/02/18 23:35 morphine AdvReac Abdominal Verified 01/02/18 23:35 Pain NSAIDS (Non-Steroidal AdvReac See Verified 01/02/18 23:35 Anti-Inflamma Comments tape Allergy Rash Uncoded 11/18/17 03:48 emycin AdvReac Abdominal Uncoded 11/20/17 08:53 Pain All Systems PM: A 10-system review of systems was performed and is negative for pertinent findings except as documented above in the HPI. - Constitutional Constitutional: no chills, no fever(s), no night sweats - EENT Eyes: no change in vision, no discharge, no pain, no photophobia Ears: no ear discharge, no ear pain, no tinnitus Nose, mouth and throat: no dysphagia, no nasal discharge, no neck pain, no sore throat - Cardiovascular Cardiovascular ROS IM: lightheadedness, syncope, no chest pain, no diaphoresis, no dyspnea, no palpitations - Respiratory Respiratory: no cough, no dyspnea, no wheezing, no excessive phlegm production - Gastrointestinal Gastrointestinal: nausea, no abdominal pain, no diarrhea, no hematemesis, no hematochezia, no melena, no vomiting - Genitourinary Genitourinary: no change in urinary stream, no dysuria, no flank pain, no hematuria - Musculoskeletal Musculoskeletal ROS IM: muscle weakness, no numbness, no tingling - Integumentary Integumentary IM: no rash, no unusual bruising - Neurological Neurological ROS: dizziness, weakness, no confusion, no convulsions, no focal weakness, no numbness, no tingling, no tremor(s) - Endocrine Endocrine IM: heat intolerance - Hematologic/Lymphatic Hematologic/Lymphatic: no easy bruising - Constitutional Vitals: Temp Pulse Resp BP Pulse Ox 98.1 F 98 16 93/69 98 02/08/18 13:07 02/08/18 13:07 02/08/18 13:07 02/08/18 13:07 02/08/18 13:07 General appearance: Present: A&O X 3, pleasant, answers questions appropriately - Head Head exam: Present: atraumatic, normocephalic - Eye Eye exam: Present: PERRL, conjuntiva pink, sclera anicteric Pupils: Present: PERRL - Neck Neck exam general surgery: Present: supple, trachea midline. Absent: lymphadenopathy - Respiratory Respiratory exam: Present: CTAB. Absent: accessory muscle use, rales, rhonchi, wheezes - Cardiovascular Cardiovascular exam: Present: RRR, +S1, +S2. Absent: diastolic murmur, gallop, rubs, systolic murmur - GI/Abdominal GI/Abdominal exam: Present: normal bowel sounds, soft, no peritoneal signs. Absent: distended, tenderness - Extremities Exam Extremities exam: Present: warm, radial pulses palpable and symmetrical. Absent : calf tenderness, cyanotic, pedal edema - Neurological Exam Neurological exam: Present: CN II-XII intact, oriented X3, no focal deficits. Absent: pronater drift, facial droop, speech deficit - Skin Skin exam: Present: dry, intact Internal Med - H&P Results - Labs CBC & Chem 7: 02/08/18 16:07 02/08/18 13:24 - Assessment and plan (1) Syncope Current Visit: Yes Status: Acute Assessment and plan: Hx of dizziness and hypotension with cardiac education. Orthostatic bp's ordered. CT of the head was negative for acute hemorrhage. Neuro check showed no deficts. No weakness noted. Will get serial cardiac troponins. Patient denied chest pain. Glucose was 69 on admission. The plan is to hydrate the patient, check ortho statics, get serial enzymes, and monitor neuro checks. [ Qualifiers: Syncope type: unspecified Qualified Code(s): R55 - Syncope and collapse (2) Hypertension Current Visit: No Status: Chronic Assessment and plan: Patient bp within normal range when she arrived. She is currently 123/67. She cuurently denies dizziness. Will continue IVF's and check ortho BP's. Bp meds continued with parameters. Qualifiers: Hypertension type: essential hypertension Qualified Code(s): I10 - Essential (primary) hypertension (3) Hypothyroidism Current Visit: No Status: Chronic Assessment and plan: Will continue current levothyroxine dosing. Qualifiers: Hypothyroidism type: acquired Qualified Code(s): E03.9 - Hypothyroidism, unspecified - Time Spent With Patient Total time spent is greater than 50% in coordination of care (as documented) at patient's floor/unit and/or counseling patient: <Ritesh Cheney P - Last Filed: 02/09/18 08:02> Date of Encounter: 02/09/18 Internal Medicine - H&P: HPI History of present illness: Ms. Acosta is a 57 year old female All Systems PM: A 10-system review of systems was performed and is negative for pertinent findings except as documented above in the HPI. - Constitutional Vitals: Temp Pulse Resp BP Pulse Ox 97.6 F 68 17 96/61 97 02/09/18 07:40 02/09/18 07:40 02/09/18 07:40 02/09/18 07:40 02/09/18 07:40 Internal Med - H&P Results - Labs CBC & Chem 7: 02/09/18 00:46 02/09/18 00:46 Labs: Short CBC 02/09/18 Range/Units 00:46 WBC 5.7 (4.3-11.1) K/mcL Hgb 12.0 D (11.5-15.4) g/dL Hct 36.4 (35.3-44.9) % Plt Count 207 (140-400) K/mcL Neutrophils # 2.4 (1.6-8.9) K/mcL BMP 02/09/18 00:46 Sodium 141 Potassium 4.0 Chloride 113 H Carbon Dioxide 22 L BUN 14 Creatinine 0.92 Glucose 97 Calcium 8.4 L Cardiac Enzymes 02/09/18 02/09/18 Range/Units 00:46 05:09 Troponin I < 0.03 < 0.03 (< 0.04) ng/mL - Attending Attestation I examined this patient and my medical decision-making was reviewed with the Resident Physician. I agree with the documented findings, disposition and treatment plan as described except to the extent set forth below. Seen and examined patient with nurse practitioner Miss Vences Agree with the findings and management along with the plan - Time Spent With Patient Total time spent is greater than 50% in coordination of care (as documented) at patient's floor/unit and/or counseling patient:
[2018-02-08] MEDS ORDERED: Ondansetron 4 MG/2 ML VIAL IVP PRN (18:02)
[2018-02-08] MEDS ORDERED: Methocarbamol 750 MG TABLET PO PRN (18:03)
[2018-02-08] MEDS ORDERED: Acetaminophen/Butalbital/CaffeineTABLET PO PRN (18:03)
[2018-02-08] MEDS: 0.9 % Sodium Chloride 1,000 ML IVC SCH (18:47)
[2018-02-08] MEDS: Sucralfate 1 GM TABLET PO SCH (20:45)
[2018-02-08] MEDS: *HR* LORazepam 0.5 MG TABLET PO PRN (20:45)
[2018-02-09 01:33] LABS: Basophils % 0.7 %; Eosinophils # 0.2 K/mcL (0.0-0.6); Eosinophils % 3.4 %; Hematocrit 36.4 % (35.3-44.9); Immature Granulocytes % 0.2 % (0-4); Lymphocytes # 2.5 K/mcL (0.6-4.6); Lymphocytes % 43.8 %; Mean Corpuscular Volume 94.1 fL (83.0-100.0); Mean Platelet Volume 10.1 fL (9.4-12.4); Monocytes # 0.5 K/mcL (0.0-1.3); Monocytes % 9.5 %; Neutrophils # 2.4 K/mcL (1.6-8.9); Platelet Count 207 K/mcL (140-400); Red Blood Count 3.87 M/mcL (3.82-4.97); Red Cell Distribution Width 13.7 % (11.5-14.5); Segmented Neutrophils % 42.4 %
[2018-02-09 01:51] LABS: BUN/Creatinine Ratio 15 (6-26); Blood Urea Nitrogen 14 mg/dL (6-20); Calcium 8.4 mg/dL (8.6-10.3); Carbon Dioxide 22 mEq/L (23-29); Chloride 113 mEq/L (98-107); Glucose 97 mg/dL (70-105); Osmolality,Calculated 292 (280-300); Sodium 141 mEq/L (136-145); eGFR For African Americans > 60 (> 60); eGFR For Non-African Americans > 60 (> 60)
[2018-02-09] MEDS: 0.9 % Sodium Chloride 1,000 ML IVC SCH ×2 (04:53→06:11)
[2018-02-09] MEDS: *HR* Heparin 5,000 UNIT/ML VIAL SQ SCH ×3 (06:11→21:55)
--- NOTE | 2018-02-09 06:23 | Electrocardiograph Report ---
[employer] Test Date: 2018-02-08 Pat Name: Linda Acosta Department: [id number] Room: 3B44 Gender: F [employer]: : 1960 Requested By: Rikki Steiner Order Number: [id number] Reading MD: Hiram Walhs Measurements Intervals Jelm Rate: 91 P: 55 WA: 182 QRS: 44 QRSD: 90 T: 40 QT: 369 QTc: 418 Interpretive Statements SINUS RHYTHM NONSPECIFIC T-WAVE ABNORMALITY Electronically Signed On 02-09-2018 6:21:38 EDT by Hiram Walsh
[2018-02-09] MEDS: Aspirin 81 MG TAB.CHEW PO SCH (08:25)
[2018-02-09] MEDS: *HR* Digoxin 0.125 MG TABLET PO SCH (08:26)
[2018-02-09] MEDS: Sucralfate 1 GM TABLET PO SCH ×4 (08:26→21:55)
--- NOTE | 2018-02-09 18:13 | Internal Med Progress Note ---
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 No prior history of syncope. Denied any chest pain. No additional syncopal events during this admission. Patient admits that she had poor oral intake throughout the day and excess sweating is feeling very overheated prior to syncopal event. Reports that she had not eaten much that day and glucose was found to be 69 on admission. Additionally, patient was noted to be on the hypotensive on arrival and was given 1 L of fluid. Hypotension is improved. Serial troponins obtained and found to be negative Obtain bilateral carotid Dopplers Obtain orthostatic vitals tomorrow morning Continuous telemetry History of congestive heart failure unknown when she last had an echocardiogram- obtain TTE Qualifiers: Syncope type: unspecified Qualified Code(s): R55 - Syncope and collapse (2) Hypertension Current Visit: Yes Status: Chronic Assessment and plan: History of hypertension, was initially hypotensive on arrival but improved with a liter of IVF. Anti-HTN medications resumed, blood pressure stable. Qualifiers: Hypertension type: essential hypertension Qualified Code(s): I10 - Essential (primary) hypertension (3) Hypothyroidism Current Visit: Yes Status: Chronic Assessment and plan: Resume Synthroid, check TSH Qualifiers: Hypothyroidism type: acquired Qualified Code(s): E03.9 - Hypothyroidism, unspecified - Time Spent With Patient Total time spent is greater than 50% in coordination of care (as documented) at patient's floor/unit and/or counseling patient: 25 - 35 minutes - Subjective Interval history: Ms. 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 Patient has no focal neurological deficits. Alert and oriented 3. EKG in the ED showed left atrial enlargement, nonspecific T-wave abnormalities and normal sinus rhythm with a rate of 91. The patient reports that she has been out working in the sun all day and was very sweaty and shaky. She also reports that she may have been dehydrated as she was not drinking anything and she also had not eaten much throughout the day. She has not had any additional syncopal events since arrival, dizziness is now subsided. Troponins were negative 3 - Constitutional Vitals: Temp Pulse Resp BP Pulse Ox 97.8 F 63 17 120/67 96 02/09/18 15:23 02/09/18 15:23 02/09/18 15:23 02/09/18 15:23 02/09/18 15:23 General appearance: Present: A&O X 3, pleasant, answers questions appropriately Exam: Patient agitated and reluctant to participate in the exam - Head Head exam: Present: atraumatic, normocephalic - Eye Eye exam: Present: PERRL, conjuntiva pink, sclera anicteric Pupils: Present: PERRL - Neck Neck exam general surgery: Present: supple, trachea midline. Absent: lymphadenopathy - Respiratory Respiratory exam: Present: CTAB. Absent: accessory muscle use, rales, rhonchi, wheezes - Cardiovascular Cardiovascular exam: Present: RRR, +S1, +S2. Absent: diastolic murmur, gallop, rubs, systolic murmur - GI/Abdominal GI/Abdominal exam: Present: normal bowel sounds, soft, no peritoneal signs. Absent: distended, tenderness - Extremities Exam Extremities exam: Present: warm, radial pulses palpable and symmetrical. Absent : calf tenderness, cyanotic, pedal edema - Neurological Exam Neurological exam: Present: CN II-XII intact, oriented X3, no focal deficits. Absent: pronater drift, facial droop, speech deficit - Skin Skin exam: Present: dry, intact Internal Medicine: Result - Labs CBC & Chem 7: 02/09/18 00:46 02/09/18 00:46 Consult Discharge Plan - Plan Referrals: Jose Horton MD [Partnered Physician] -
[2018-02-09] MEDS ORDERED: 0.9 % Sodium Chloride 1,000 ML IVC SCH (18:30)
[2018-02-09] MEDS: *HR* LORazepam 0.5 MG TABLET PO PRN (21:56)
[2018-02-10] MEDS ORDERED: *HR* OxyCODONE/APAP 5/325 TABLET PO ONE (04:44)
[2018-02-10] MEDS: *HR* Heparin 5,000 UNIT/ML VIAL SQ SCH ×3 (04:48→20:44)
[2018-02-10 06:09] LABS: Basophils % 0.7 %; Eosinophils # 0.2 K/mcL (0.0-0.6); Eosinophils % 3.6 %; Hematocrit 35.8 % (35.3-44.9); Hemoglobin 11.5 g/dL (11.5-15.4); Immature Granulocytes % 0.3 % (0-4); Lymphocytes # 2.7 K/mcL (0.6-4.6); Lymphocytes % 45.1 %; Mean Corpuscular HGB Conc 32.1 g/dL (31.6-35.5); Mean Corpuscular Hemoglobin 30.4 pg (28.0-33.3); Mean Corpuscular Volume 94.7 fL (83.0-100.0); Mean Platelet Volume 10.3 fL (9.4-12.4); Monocytes # 0.5 K/mcL (0.0-1.3); Monocytes % 7.6 %; Neutrophils # 2.5 K/mcL (1.6-8.9); Platelet Count 187 K/mcL (140-400); Red Blood Count 3.78 M/mcL (3.82-4.97); Red Cell Distribution Width 13.5 % (11.5-14.5); Segmented Neutrophils % 42.7 %
[2018-02-10 06:32] LABS: BUN/Creatinine Ratio 15 (6-26); Blood Urea Nitrogen 14 mg/dL (6-20); Calcium 8.5 mg/dL (8.6-10.3); Carbon Dioxide 21 mEq/L (23-29); Chloride 113 mEq/L (98-107); Glucose 91 mg/dL (70-105); Osmolality,Calculated 290 (280-300); Potassium 4.3 mEq/L (3.5-5.1); Sodium 140 mEq/L (136-145); eGFR For African Americans > 60 (> 60); eGFR For Non-African Americans 60 (> 60)
[2018-02-10 06:45] LABS: Thyroid Stimulating Hormone 1.823 mcIU/mL (0.340-5.600)
[2018-02-10] MEDS: Aspirin 81 MG TAB.CHEW PO SCH (08:33)
[2018-02-10] MEDS: *HR* Digoxin 0.125 MG TABLET PO SCH (08:33)
[2018-02-10] MEDS: Sucralfate 1 GM TABLET PO SCH (08:34)
--- NOTE | 2018-02-10 16:51 | Internal Med Progress Note ---
Date of Encounter: 02/10/18 Time of Encounter: 16:47 - Assessment and plan (1) Syncope Current Visit: Yes Status: Acute Assessment and plan: Presented following a syncopal event. Patient reports she has been working out in the heat all day and been sweating excessively due to overexertion prior to having syncopal event. This is likely the cause of the syncope as the workup has been grossly unremarkable. Patient was found to have hypotension on arrival and given 1 L fluid bolus. Hypotension is improved however blood pressure remains borderline low; unclear if syncope caused by orthostasis UA with small leuk esterase; cultures sent no growth Serial troponins obtained and found to be negative Carotid Dopplers with nonstenotic plaque bilaterally CT of head negative for acute intracranial abnormality Recent [facility] 11/26 negative for coronary artery disease Echocardiogram on 02/09/18 shows improvement in EF comparison to 11/2017 exam Orthostatic vital signs ordered but yet to be obtained. Nursing staff notified of need for orthostatic vital signs Continuous telemetry TTE 50%-LV chamber size upper limits of normal, normal right ventricular structure and function Qualifiers: Syncope type: unspecified Qualified Code(s): R55 - Syncope and collapse (2) Hypertension Current Visit: Yes Status: Chronic Assessment and plan: History of hypertension, blood pressure has remained stable, continue Anti-HTN medications Qualifiers: Hypertension type: essential hypertension Qualified Code(s): I10 - Essential (primary) hypertension (3) Hypothyroidism Current Visit: Yes Status: Chronic Assessment and plan: Resume Synthroid TSH checked, 1.83 this is a normal TSH Qualifiers: Hypothyroidism type: acquired Qualified Code(s): E03.9 - Hypothyroidism, unspecified - Time Spent With Patient Total time spent is greater than 50% in coordination of care (as documented) at patient's floor/unit and/or counseling patient: 25 - 35 minutes - Subjective Interval history: Ms. 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 Patient has no focal neurological deficits. Alert and oriented 3. EKG in the ED showed left atrial enlargement, nonspecific T-wave abnormalities and normal sinus rhythm with a rate of 91. The patient reports that she has been out working in the sun all day and was very sweaty and shaky and is likely what led to the syncopal event.. She also reports that she may have been dehydrated as she was not drinking anything and she also had not eaten much throughout the day. Patient seen and examined at bedside today She has not had any additional syncopal events since arrival, dizziness is now subsided. Her only additional complaints are itching of her extremities. Ports that she has this at home as well. - Constitutional Vitals: Temp Pulse Resp BP Pulse Ox 97.9 F 69 16 109/60 95 02/10/18 15:47 02/10/18 15:47 02/10/18 15:47 02/10/18 15:47 02/10/18 15:47 General appearance: Present: cooperative, A&O X 3, pleasant, answers questions appropriately - Head Head exam: Present: atraumatic, normocephalic - Eye Eye exam: Present: PERRL, conjuntiva pink, sclera anicteric Pupils: Present: PERRL - Neck Neck exam general surgery: Present: supple, trachea midline. Absent: lymphadenopathy - Respiratory Respiratory exam: Present: CTAB. Absent: accessory muscle use, rales, rhonchi, wheezes - Cardiovascular Cardiovascular exam: Present: RRR, +S1, +S2. Absent: diastolic murmur, gallop, rubs, systolic murmur - GI/Abdominal GI/Abdominal exam: Present: normal bowel sounds, soft, no peritoneal signs. Absent: distended, tenderness - Extremities Exam Extremities exam: Present: warm, radial pulses palpable and symmetrical. Absent : calf tenderness, cyanotic, pedal edema - Neurological Exam Neurological exam: Present: CN II-XII intact, oriented X3, no focal deficits. Absent: pronater drift, facial droop, speech deficit - Skin Skin exam: Present: dry, intact Internal Medicine: Result - Labs CBC & Chem 7: 02/10/18 04:28 02/10/18 04:28 Labs: Short CBC 02/10/18 Range/Units 04:28 WBC 5.9 (4.3-11.1) K/mcL Hgb 11.5 (11.5-15.4) g/dL Hct 35.8 (35.3-44.9) % Plt Count 187 (140-400) K/mcL Neutrophils # 2.5 (1.6-8.9) K/mcL BMP 02/10/18 04:28 Sodium 140 Potassium 4.3 Chloride 113 H Carbon Dioxide 21 L BUN 14 Creatinine 0.96 Glucose 91 Calcium 8.5 L - Impressions Impressions Femur X-Ray 02/09/18 19:00 IMPRESSION: No acute findings D/ / Angeline Mendoza MD / Angeline Mendoza MD Interpreting Provider: Angeline Mendoza MD Pelvis X-Ray 02/09/18 19:00 IMPRESSION: No acute fracture. D/ / Angeline Mendoza MD / Angeline Mendoza MD Interpreting Provider: Angeline Mendoza MD Tibia/Fibula X-Ray 02/09/18 19:00 IMPRESSION: No acute findings D/ / Angeline Mendoza MD / Angeline Mendoza MD Interpreting Provider: Angeline Mendoza MD Echocardiogram Limited Views 02/10/18 18:29 Impressions: LVEF 50%. LV chamber size upper limits of normal. Normal right ventricular structure and function. Left Ventricular Wall Motion: Rest Echo Findings All wall segments showed normal motion. Findings: Study Quality * Technically adequate exam. ECG Findings * Sinus bradycardia. Left Ventricle * LV chamber size upper limits of normal. * LVEF 50%. Right Ventricle * Normal right ventricular structure and function. Aorta * Normally sized aortic root. Pericardium * There is no pericardial effusion present. IVC * Normal IVC dimensions and inspiratory collapse. Impressions Femur X-Ray 02/09/18 19:00 IMPRESSION: No acute findings D/ / Angeline Mendoza MD / Angeline Mendoza MD Interpreting Provider: Angeline Mendoza MD Pelvis X-Ray 02/09/18 19:00 IMPRESSION: No acute fracture. D/ / Angeline Mendoza MD / Angeline Mendoza MD Interpreting Provider: Angeline Mendoza MD Tibia/Fibula X-Ray 02/09/18 19:00 IMPRESSION: No acute findings D/ / Angeline Mendoza MD / Angeline Mendoza MD Interpreting Provider: Angeline Mendoza MD Echocardiogram Limited Views 02/10/18 18:29 Impressions: LVEF 50%. LV chamber size upper limits of normal. Normal right ventricular structure and function. Left Ventricular Wall Motion: Rest Echo Findings All wall segments showed normal motion. Findings: Study Quality * Technically adequate exam. ECG Findings * Sinus bradycardia. Left Ventricle * LV chamber size upper limits of normal. * LVEF 50%. Right Ventricle * Normal right ventricular structure and function. Aorta * Normally sized aortic root. Pericardium * There is no pericardial effusion present. IVC * Normal IVC dimensions and inspiratory collapse. Consult Discharge Plan - Plan Referrals: Jose Horton MD [Partnered Physician] -
[2018-02-10] MEDS: *HR* LORazepam 0.5 MG TABLET PO PRN (20:34)
[2018-02-11] MEDS: *HR* Heparin 5,000 UNIT/ML VIAL SQ SCH ×2 (06:10→12:52)
[2018-02-11 07:15] LABS: Basophils # 0.1 K/mcL (0.0-0.2); Eosinophils # 0.3 K/mcL (0.0-0.6); Eosinophils % 4.5 %; Hematocrit 39.5 % (35.3-44.9); Hemoglobin 12.9 g/dL (11.5-15.4); Immature Granulocytes % 0.3 % (0-4); Lymphocytes # 2.7 K/mcL (0.6-4.6); Lymphocytes % 43.5 %; Mean Corpuscular HGB Conc 32.7 g/dL (31.6-35.5); Mean Corpuscular Hemoglobin 30.5 pg (28.0-33.3); Mean Corpuscular Volume 93.4 fL (83.0-100.0); Mean Platelet Volume 10.2 fL (9.4-12.4); Monocytes # 0.6 K/mcL (0.0-1.3); Monocytes % 9.1 %; Neutrophils # 2.6 K/mcL (1.6-8.9); Platelet Count 222 K/mcL (140-400); Red Blood Count 4.23 M/mcL (3.82-4.97); Red Cell Distribution Width 13.2 % (11.5-14.5); Segmented Neutrophils % 41.6 %
[2018-02-11 07:35] LABS: BUN/Creatinine Ratio 23 (6-26); Blood Urea Nitrogen 19 mg/dL (6-20); Calcium 8.9 mg/dL (8.6-10.3); Carbon Dioxide 23 mEq/L (23-29); Chloride 111 mEq/L (98-107); Glucose 83 mg/dL (70-105); Osmolality,Calculated 291 (280-300); Potassium 4.1 mEq/L (3.5-5.1); Sodium 140 mEq/L (136-145); eGFR For African Americans > 60 (> 60); eGFR For Non-African Americans > 60 (> 60)
[2018-02-11] MEDS: Aspirin 81 MG TAB.CHEW PO SCH (08:34)
[2018-02-11] MEDS: *HR* Digoxin 0.125 MG TABLET PO SCH (08:34)
--- NOTE | 2018-02-11 10:29 | Internal Med Progress Note ---
Date of Encounter: 02/11/18 Time of Encounter: 10:26 - Assessment and plan (1) Syncope Current Visit: Yes Status: Acute Qualifiers: Syncope type: unspecified Qualified Code(s): R55 - Syncope and collapse (2) Hypertension Current Visit: Yes Status: Chronic Qualifiers: Hypertension type: essential hypertension Qualified Code(s): I10 - Essential (primary) hypertension (3) Hypothyroidism Current Visit: Yes Status: Chronic Qualifiers: Hypothyroidism type: acquired Qualified Code(s): E03.9 - Hypothyroidism, unspecified (4) Orthostasis Current Visit: Yes Status: Acute - Time Spent With Patient Total time spent is greater than 50% in coordination of care (as documented) at patient's floor/unit and/or counseling patient: - Subjective Interval history: Ms. 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 Patient has no focal neurological deficits. Alert and oriented 3. EKG in the ED showed left atrial enlargement, nonspecific T-wave abnormalities and normal sinus rhythm with a rate of 91. The patient reports that she has been out working in the sun all day and was very sweaty and shaky and is likely what led to the syncopal event.. She also reports that she may have been dehydrated as she was not drinking anything and she also had not eaten much throughout the day. Patient seen and examined at bedside today She has not had any additional syncopal events since arrival, dizziness is now subsided. Her only additional complaints are itching of her extremities. Ports that she has this at home as well. - Constitutional Vitals: Temp Pulse Resp BP Pulse Ox 97.5 F L 63 14 95/60 96 02/11/18 06:46 02/11/18 06:46 02/11/18 06:46 02/11/18 06:46 02/11/18 06:46 General appearance: Present: cooperative, A&O X 3, pleasant, answers questions appropriately Internal Medicine: Result - Labs CBC & Chem 7: 02/11/18 06:28 02/11/18 06:28 Labs: Short CBC 02/11/18 Range/Units 06:28 WBC 6.3 (4.3-11.1) K/mcL Hgb 12.9 (11.5-15.4) g/dL Hct 39.5 (35.3-44.9) % Plt Count 222 (140-400) K/mcL Neutrophils # 2.6 (1.6-8.9) K/mcL BMP 02/11/18 06:28 Sodium 140 Potassium 4.1 Chloride 111 H Carbon Dioxide 23 BUN 19 Creatinine 0.82 Glucose 83 Calcium 8.9 - Impressions Impressions Echocardiogram Limited Views 02/10/18 18:29 Impressions: LVEF 50%. LV chamber size upper limits of normal. Normal right ventricular structure and function. Left Ventricular Wall Motion: Rest Echo Findings All wall segments showed normal motion. Findings: Study Quality * Technically adequate exam. ECG Findings * Sinus bradycardia. Left Ventricle * LV chamber size upper limits of normal. * LVEF 50%. Right Ventricle * Normal right ventricular structure and function. Aorta * Normally sized aortic root. Pericardium * There is no pericardial effusion present. IVC * Normal IVC dimensions and inspiratory collapse. Consult Discharge Plan - Plan Referrals: Jose Horton MD [Partnered Physician] -
[2018-02-11] MEDS ORDERED: 0.9 % Sodium Chloride 1,000 ML IVC SCH (11:45)
[2018-02-11 15:48] VITALS: BP 103/63
--- NOTE | 2018-02-11 15:53 | Discharge Summary ---
- NOTES TO OUTPATIENT PROVIDER Notes to Outpatient Provider: Patient was found to have a single episode of syncope. Was hypotensive early in stay, most likely 2/2 dehydration; Improved with fluids. BP remains borderline low but tolerating activity well. No syncopal events throughout the stay. Date of Encounter: 02/11/18 Time of Encounter: 15:50 - Discharge Diagnosis (1) Syncope Priority: Primary Status: Acute Assessment and Plan: Presented following a syncopal event likely caused by overheating. syncope workup has been grossly unremarkable. Urinalysis negative, serial troponins have been negative 3, carotid Dopplers only finding nonstenotic plaque bilaterally, CT of head negative for acute intracranial abnormality, TSH normal , TTE shows a 50% EF which is an improvent in comparison to prior study. Had recent LHC which showed the coronary arteries are angiographically normal, syncopal event likely not cardiac mediated. She had one episode early this morning of borderline orthostasis which has now resolved. She was given 1 L IVF. She reports that she has felt much better over the last 2 days and that she is ready for discharge. Repeat orthostatic vitals negative for orthostasis. Patient is medically stable and ready for discharge. She has been instructed to follow-up with primary care provider in one week. Additionally, she has been instructed to return to the ED showed severe dizziness or a near syncopal event occur. Patient denies any further concerns this time. Qualifiers: Syncope type: unspecified Qualified Code(s): R55 - Syncope and collapse (2) Orthostasis Priority: Secondary Status: Acute Assessment and Plan: Single episode of borderline orthostasis this morning, Received 1liter IVF, resolved. Orthostatic vital signs rechecked and were unremarkable. (3) Hypertension Priority: Secondary Status: Chronic Assessment and Plan: Continue anti-HTN medications at discharge Qualifiers: Hypertension type: essential hypertension Qualified Code(s): I10 - Essential (primary) hypertension (4) Hypothyroidism Priority: Secondary Status: Chronic Assessment and Plan: Continue Synthroid at discharge Qualifiers: Hypothyroidism type: acquired Qualified Code(s): E03.9 - Hypothyroidism, unspecified Hospital course: Ms. Acosta is a 57 year old female who presented for a syncopal event which was likely caused by overheating. Syncope workup has been grossly unremarkable. Urinalysis negative, serial troponins have been negative 3, carotid Dopplers only finding nonstenotic plaque bilaterally, CT of head negative for acute intracranial abnormality, TSH normal, TTE shows a 50% EF which is an improvent in comparison to prior study. Had recent LHC which showed the coronary arteries are angiographically normal, syncopal event likely not cardiac mediated. She had one episode early this morning of borderline orthostasis which has now resolved. She was given 1 L IVF. She reports that she has felt much better over the last 2 days and that she is ready for discharge. Repeat orthostatic vitals negative for orthostasis. Patient is medically stable and ready for discharge. She has been instructed to follow-up with primary care provider in one week. Additionally, she has been instructed to return to the ED showed severe dizziness or a near syncopal event occur. Patient denies any further concerns this time. Discharge discussed with: patient, nurse - Time Spent with Patient Total time spent providing and/or coordinating discharge services: Less than 30 minutes - Discharge Medications Home Medications: Aspirin 81 mg PO DAILY 05/26/15 [History] Atorvastatin [Lipitor] 10 mg PO HS #0 05/26/15 [History] Butalb/Acetaminophen/Caffeine [Fioricet 50-300-40 mg Capsule] 1 mg PO DAILY PRN 05/26/15 [History] Carvedilol [Coreg] 3.125 mg PO BIDWM 05/26/15 [History] Citalopram Hydrobromide [Celexa] 20 mg PO DAILY 05/26/15 [History] Digoxin [Lanoxin] 0.125 mg PO DAILY 05/26/15 [History] LORazepam [Ativan] 0.25 mg PO DAILY PRN 05/26/15 [History] Methocarbamol [Robaxin] 750 mg PO Q8HR PRN 05/26/15 [History] Ondansetron [Zofran] 4 mg PO Q4HR PRN 05/26/15 [History] Ropinirole [Requip] 3 mg PO DAILY PRN 05/26/15 [History] Levothyroxine Sodium [Tirosint] 50 mcg PO DAILY 08/04/17 [History] Omeprazole [PriLOSEC] 20 mg PO DAILY capsule. 08/05/17 [Rx] Sucralfate [Carafate] 1 gm PO QIDAC #20 tablet 08/26/17 [Rx] Allergies/Adverse Reactions: 3 Allergy/AdvReac Type Severity Reaction Status Date / Time cephalexin [From Keflex] Allergy Hives Verified 01/02/18 23:35 Sulfa (Sulfonamide Allergy Hives Verified 01/02/18 23:35 Antibiotics) Tetracycline Allergy Hives Verified 01/02/18 23:35 acetaminophen [From Vicodin] AdvReac Migraine Verified 01/02/18 23:35 adhesive AdvReac Rash Verified 01/02/18 23:35 clavulanic acid AdvReac Diarrhea Verified 01/02/18 23:35 [From Augmentin] codeine AdvReac Abdominal Verified 01/02/18 23:35 Pain hydrocodone [From Vicodin] AdvReac Migraine Verified 01/02/18 23:35 levofloxacin [From Levaquin] AdvReac Diarrhea Verified 01/02/18 23:35 morphine AdvReac Abdominal Verified 01/02/18 23:35 Pain NSAIDS (Non-Steroidal AdvReac See Verified 01/02/18 23:35 Anti-Inflamma Comments tape Allergy Rash Uncoded 11/18/17 03:48 emycin AdvReac Abdominal Uncoded 11/20/17 08:53 Pain Date of admission: 02/09/18 12:29 Primary care physician: PCP NONE Discharging clinician: Marquise Lacey Anticipated date of discharge: 02/11/18 - Constitutional Vitals: Temp Pulse Resp BP Pulse Ox 98.2 F 59 14 103/63 95 02/11/18 11:44 02/11/18 15:46 02/11/18 14:52 02/11/18 15:46 02/11/18 14:52 General appearance: Present: cooperative, A&O X 3, pleasant, answers questions appropriately - Head Head exam: Present: atraumatic, normocephalic - Eye Eye exam: Present: PERRL, conjuntiva pink, sclera anicteric Pupils: Present: PERRL - Neck Neck exam general surgery: Present: supple, trachea midline. Absent: lymphadenopathy - Respiratory Respiratory exam: Present: CTAB. Absent: accessory muscle use, rales, rhonchi, wheezes - Cardiovascular Cardiovascular exam: Present: RRR, +S1, +S2. Absent: diastolic murmur, gallop, rubs, systolic murmur - GI/Abdominal GI/Abdominal exam: Present: normal bowel sounds, soft, no peritoneal signs. Absent: distended, tenderness - Extremities Exam Extremities exam: Present: warm, radial pulses palpable and symmetrical. Absent : calf tenderness, cyanotic, pedal edema - Neurological Exam Neurological exam: Present: CN II-XII intact, oriented X3, no focal deficits. Absent: pronater drift, facial droop, speech deficit - Skin Skin exam: Present: dry, intact - Patient Status Disposition: Home, Self-Care Condition: Good Overall status at discharge: patient is back to baseline - Discharge Instructions Follow Up With: Jose Horton MD [Partnered Physician] -
== END 2018-02-11 16:50 | disposition home or self-care (01) | DRG 641 ==
LOC: EMEROO 13:03 → 3BNU 13:03
PROVIDERS: ADMIT Internal Medicine; ATTEND Internal Medicine

== ENCOUNTER 2018-08-21 17:11 | Inpatient (IN) ==
[2018-08-21] MEDS ORDERED: 0.9 % Sodium Chloride 1,000 ML IVC ONE (17:41)
[2018-08-21] MEDS ORDERED: Piperacillin/Tazobactam 3.375 GM in Water for inj. (sterile) 20 ML 20 ML IVP ONE (17:43)
[2018-08-21] MEDS ORDERED: Ondansetron 4 MG/2 ML VIAL IVP ONE (17:44)
--- NOTE | 2018-08-21 17:47 | Emergency Department Note ---
Disposition Clinical Impression: Pyelonephritis, Failure of outpatient treatment Disposition: Admitted As Inpatient Time of Disposition: 21:57 General Adult HPI - General Chief complaint: ED Urogenital-Female Stated complaint: UTI Time Seen by Provider: 08/21/18 17:13 - History of Present Illness Pain Scale: 6 - Related Data Home Medications Medication Instructions Recorded Confirmed Atorvastatin [Lipitor] 10 mg PO HS #0 05/26/15 02/26/18 Butalb/Acetaminophen/Caffeine 1 mg PO DAILY PRN 05/26/15 02/26/18 [Fioricet 50-300-40 mg Capsule] Carvedilol [Coreg] 3.125 mg PO BIDWM 05/26/15 02/26/18 Citalopram Hydrobromide [Celexa] 20 mg PO DAILY 05/26/15 02/26/18 Digoxin [Lanoxin] 0.125 mg PO DAILY 05/26/15 02/26/18 LORazepam [Ativan] 0.25 mg PO DAILY PRN 05/26/15 02/26/18 Methocarbamol [Robaxin] 750 mg PO Q8HR PRN 05/26/15 02/26/18 Ropinirole [Requip] 3 mg PO DAILY PRN 05/26/15 02/26/18 Levothyroxine Sodium [Tirosint] 50 mcg PO DAILY 08/04/17 02/26/18 Buspirone HCl [Buspar] 10 mg PO BID 08/21/18 08/21/18 Oxybutynin Chloride [Ditropan Xl] 10 mg PO DAILY 08/21/18 08/21/18 Sucralfate [Carafate] 1 gm PO BID 08/21/18 08/21/18 Previous Rx's Medication Instructions Recorded Levalbuterol [Xopenex] 1 puff IH PRN PRN #1 inhaler 03/28/18 Ondansetron ODT [Zofran ODT] 4 mg SL Q4HR PRN #12 tab.rapdis 08/02/18 Allergies Allergy/AdvReac Type Severity Reaction Status Date / Time cephalexin [From Keflex] Allergy Hives Verified 08/21/18 17:16 Sulfa (Sulfonamide Allergy Hives Verified 08/21/18 17:16 Antibiotics) tetracycline Allergy Hives Verified 08/21/18 17:16 adhesive AdvReac Rash Verified 08/21/18 17:16 clavulanic acid AdvReac Diarrhea Verified 08/21/18 17:16 [From Augmentin] codeine AdvReac Abdominal Verified 08/21/18 17:16 Pain hydrocodone [From Vicodin] AdvReac Migraine Verified 08/21/18 17:16 levofloxacin [From Levaquin] AdvReac Diarrhea Verified 08/21/18 17:16 morphine AdvReac Abdominal Verified 08/21/18 17:16 Pain NSAIDS (Non-Steroidal AdvReac See Verified 08/21/18 17:16 Anti-Inflamma Comments tape Allergy Rash Uncoded 04/27/18 20:46 emycin AdvReac Abdominal Uncoded 04/27/18 20:46 Pain Past Medical History - Past Medical History Medical history: Reports: arthritis, cancer, CHF, COPD, fibromyalgia, GERD, hyperlipidemia, hypertension, migraine, thyroid disease Surgical history: Reports: appendectomy, breast surgery, , cancer surgery, cholecystectomy, hysterectomy Psychiatric history: Reports: anxiety, ADHD, depression [employer] history: Reports: non-contributory - Social History Smoking Status: Current every day smoker Smokeless Tobacco Status: No Alcohol use: Reports: none Drug use: Reports: none Course Vital Signs Temperature 97.8 F 08/21/18 17:14 Pulse Rate 59 08/21/18 17:14 Respiratory Rate 16 08/21/18 17:14 Blood Pressure 114/74 08/21/18 17:14 O2 Sat by Pulse Oximetry 97 08/21/18 17:14 Temperature 97.8 F 08/21/18 18:53 Pulse Rate 59 08/21/18 18:53 Respiratory Rate 16 08/21/18 18:53 Blood Pressure 114/74 08/21/18 18:53 O2 Sat by Pulse Oximetry 97 08/21/18 18:53 Oxygen Delivery Oxygen Delivery Room Air Medical Decision Making - Lab Data Result diagrams: 08/21/18 18:48 08/21/18 18:48 Lab Results 08/21/18 08/21/18 08/21/18 Range/Units 18:39 18:48 18:48 WBC 7.5 (4.3-11.1) K/mcL RBC 4.26 (3.82-4.97) M/mcL Hgb 13.3 (11.5-15.4) g/dL Hct 40.2 (35.3-44.9) % MCV 94.4 (83.0-100.0) fL MCH 31.2 (28.0-33.3) pg MCHC 33.1 (31.6-35.5) g/dL RDW 13.3 (11.5-14.5) % Plt Count 232 (140-400) K/mcL MPV 10.3 (9.4-12.4) fL Immature Gran % 0.1 (0-4) % Seg Neutrophils % 49.9 % Lymphocytes % 37.4 % Monocytes % 7.8 % Eosinophils % 3.9 % Basophils % 0.9 % Neutrophils # 3.7 (1.6-8.9) K/mcL Lymphocytes # 2.8 (0.6-4.6) K/mcL Monocytes # 0.6 (0.0-1.3) K/mcL Eosinophils # 0.3 (0.0-0.6) K/mcL Basophils # 0.1 (0.0-0.2) K/mcL Sodium 139 (136-145) mEq/L Potassium 3.8 (3.5-5.1) mEq/L Chloride 109 H (98-107) mEq/L Carbon Dioxide 22 L (23-29) mEq/L BUN 22 H (6-20) mg/dL Creatinine 0.75 (0.60-1.20) mg/dL Est GFR ( Amer) > 60 (> 60) Est GFR (Non-Af Amer) > 60 (> 60) BUN/Creatinine Ratio 29 H (6-26) Glucose 83 (70-105) mg/dL Calculated Osmolality 290 (280-300) Calcium 9.0 (8.6-10.3) mg/dL Urine Color Yellow (Yellow) Urine Clarity Cloudy A (Clear) Urine pH 6.0 (5.0-8.0) pH Units Ur Specific [place] 1.017 (1.010-1.025) Urine Protein 30 H (Neg-Trace) mg/dL Urine Glucose (UA) Normal (Normal) mg/dL Urine Ketones Negative (Negative) mg/dL Urine Blood Small H (Negative) Urine Nitrite Negative (Negative) Urine Bilirubin Negative (Negative) Urine Urobilinogen Normal (Normal) mg/dL Ur Leukocyte Esterase Moderate H (Negative) Urine Microscopic RBC 15-30 H (0-3) per hpf Urine Microscopic WBC 50-100 H (0-3) per hpf Ur Squamous Epith Cells Many H (None-Few) per lpf Urine Bacteria Moderate H (None-Few) per hpf Hyaline Casts None Seen (None-Few) per lpf Ur Culture Indicated? NO. A (NO) Attestation Statement - Attestation Attestation: I examined this patient and my medical decision-making was reviewed with the Resident Physician. I agree with the documented findings, disposition and treatment plan as described except to the extent set forth below. Patient to the ED. Sent by her PCP. She has had multiple issues with outpatient antibiotics for a UTI. She was sent in for admission for IV antibiotic. She states she is having dysuria and flank pain. She is in no distress on examination. Abdomen soft. Plan. Basic labs and IV antibiotic.
--- NOTE | 2018-08-21 17:51 | Emergency Department Note ---
Disposition Clinical Impression: Pyelonephritis, Failure of outpatient treatment Disposition: Admitted As Inpatient Condition: Fair Time of Disposition: 19:53 General Adult HPI - General Chief complaint: ED Urogenital-Female Stated complaint: UTI Time Seen by Provider: 08/21/18 17:13 Source: patient Mode of arrival: ambulatory Limitations: no limitations Nursing Notes Reviewed: Yes Vital Signs Reviewed: Yes - History of Present Illness HPI Narrative: Patient is a 58-year-old female with past medical history of COPD, fibromyalgia, hyperlipidemia, and hypertension presents to the emergency department for failed outpatient treatment of urinary tract infection. Patient was sent to the emergency department from her primary care physician's office. Patient has been having urinary symptoms since 07/30 in which she was originally started on nitrofurantoin which cause her to have symptoms of GI upset so she stopped taking that and went to an urgent care and which they prescribed her ciprofloxacin. Patient states that this improved her symptoms however over the past 3 days her symptoms returned with suprapubic pressure as well as bilateral flank pain. She denies nausea, vomiting or diarrhea. Patient states that she did have a fever at home of 102. According to her primary care physician patient's has allergies to multiple medications and is unable to switch to a different oral drug. Requested that she be admitted for IV antibiotics. Pain Scale: 6 - Related Data Home Medications Medication Instructions Recorded Confirmed Atorvastatin [Lipitor] 10 mg PO HS #0 05/26/15 02/26/18 Butalb/Acetaminophen/Caffeine 1 mg PO DAILY PRN 05/26/15 02/26/18 [Fioricet 50-300-40 mg Capsule] Carvedilol [Coreg] 3.125 mg PO BIDWM 05/26/15 02/26/18 Citalopram Hydrobromide [Celexa] 20 mg PO DAILY 05/26/15 02/26/18 Digoxin [Lanoxin] 0.125 mg PO DAILY 05/26/15 02/26/18 LORazepam [Ativan] 0.25 mg PO DAILY PRN 05/26/15 02/26/18 Methocarbamol [Robaxin] 750 mg PO Q8HR PRN 05/26/15 02/26/18 Ropinirole [Requip] 3 mg PO DAILY PRN 05/26/15 02/26/18 Levothyroxine Sodium [Tirosint] 50 mcg PO DAILY 08/04/17 02/26/18 Buspirone HCl [Buspar] 10 mg PO BID 08/21/18 08/21/18 Oxybutynin Chloride [Ditropan Xl] 10 mg PO DAILY 08/21/18 08/21/18 Sucralfate [Carafate] 1 gm PO BID 08/21/18 08/21/18 Previous Rx's Medication Instructions Recorded Levalbuterol [Xopenex] 1 puff IH PRN PRN #1 inhaler 03/28/18 Ondansetron ODT [Zofran ODT] 4 mg SL Q4HR PRN #12 tab.rapdis 08/02/18 Allergies Allergy/AdvReac Type Severity Reaction Status Date / Time cephalexin [From Keflex] Allergy Hives Verified 08/21/18 17:16 Sulfa (Sulfonamide Allergy Hives Verified 08/21/18 17:16 Antibiotics) tetracycline Allergy Hives Verified 08/21/18 17:16 adhesive AdvReac Rash Verified 08/21/18 17:16 clavulanic acid AdvReac Diarrhea Verified 08/21/18 17:16 [From Augmentin] codeine AdvReac Abdominal Verified 08/21/18 17:16 Pain hydrocodone [From Vicodin] AdvReac Migraine Verified 08/21/18 17:16 levofloxacin [From Levaquin] AdvReac Diarrhea Verified 08/21/18 17:16 morphine AdvReac Abdominal Verified 08/21/18 17:16 Pain NSAIDS (Non-Steroidal AdvReac See Verified 08/21/18 17:16 Anti-Inflamma Comments tape Allergy Rash Uncoded 04/27/18 20:46 emycin AdvReac Abdominal Uncoded 04/27/18 20:46 Pain All systems ED: reviewed and negative except as stated. Review of Systems: As Per HPI Constitutional: Reports: fever Cardiovascular: Denies: chest pain, dyspnea on exertion Respiratory: Denies: cough, dyspnea Gastrointestinal: Reports: abdominal pain, nausea, vomiting. Denies: diarrhea, constipation, hematemesis, melena, hematochezia Genitourinary: Reports: urgency, dysuria. Denies: frequency, hematuria Musculoskeletal: Reports: back pain. Denies: neck pain Integumentary: Denies: rash Past Medical History - Past Medical History Attestation: Yes The following information was validated with the patient. 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: non-contributory - Social History Smoking Status: Current every day smoker Smokeless Tobacco Status: No Alcohol use: Reports: none Drug use: Reports: none Physical Exam CONSTITUTIONAL: Well-appearing; well-nourished; A&O X 3, in no apparent distress HEAD: Normocephalic; atraumatic EYES: PERRL, no scleral icterus NOSE: The nose is normal in appearance without rhinorrhea NECK: No JVD or distended neck veins RESP: Normal chest excursion with respiration; breath sounds clear and equal bilaterally; no wheezes, rhonchi, or rales CARD: Regular rhythm, without murmurs, rub or gallop ABD: Non-distended; mildly tender in the suprapubic region, without rigidity, rebound or guarding,no pulsatile mass CHEST: No pain with palpation BACK: CVA tenderness bilaterally SKIN: Normal for age and race; warm and dry without diaphoresis ; no apparent lesions EXTREMITIES: Pulses are 2 plus and equal times 4 extremities, no peripheral edema or calf muscle pain Course Course Narrative: Patient was sent in by her PCP for failed outpatient treatment of a UTI. Trista mojica is presenting with symptoms concerning for pyelonephritis. She admits to fevers at home. Here her vital signs are completely stable. Upon review of patient's most recent urine culture she has allergies to any by mouth medications. She will be started on Zosyn IV in the emergency department. Her urine was sent for culture. I discussed her case with the hospitalist Dr. Richardson. He agrees to accept the patient. Vital Signs Temperature 97.8 F 08/21/18 17:14 Pulse Rate 59 08/21/18 17:14 Respiratory Rate 16 08/21/18 17:14 Blood Pressure 114/74 08/21/18 17:14 O2 Sat by Pulse Oximetry 97 08/21/18 17:14 Temperature 97.8 F 08/21/18 18:53 Pulse Rate 59 08/21/18 18:53 Respiratory Rate 16 08/21/18 18:53 Blood Pressure 114/74 08/21/18 18:53 O2 Sat by Pulse Oximetry 97 08/21/18 18:53 Oxygen Delivery Oxygen Delivery Room Air Medical Decision Making - Medical Records Medical records reviewed: Yes I reviewed the patient's medical records. - Lab Data Lab results reviewed: Yes I reviewed the patient's lab results. Result diagrams: 08/21/18 18:48 08/21/18 18:48 Lab Results 08/21/18 08/21/18 08/21/18 Range/Units 18:39 18:48 18:48 WBC 7.5 (4.3-11.1) K/mcL RBC 4.26 (3.82-4.97) M/mcL Hgb 13.3 (11.5-15.4) g/dL Hct 40.2 (35.3-44.9) % MCV 94.4 (83.0-100.0) fL MCH 31.2 (28.0-33.3) pg MCHC 33.1 (31.6-35.5) g/dL RDW 13.3 (11.5-14.5) % Plt Count 232 (140-400) K/mcL MPV 10.3 (9.4-12.4) fL Immature Gran % 0.1 (0-4) % Seg Neutrophils % 49.9 % Lymphocytes % 37.4 % Monocytes % 7.8 % Eosinophils % 3.9 % Basophils % 0.9 % Neutrophils # 3.7 (1.6-8.9) K/mcL Lymphocytes # 2.8 (0.6-4.6) K/mcL Monocytes # 0.6 (0.0-1.3) K/mcL Eosinophils # 0.3 (0.0-0.6) K/mcL Basophils # 0.1 (0.0-0.2) K/mcL Sodium 139 (136-145) mEq/L Potassium 3.8 (3.5-5.1) mEq/L Chloride 109 H (98-107) mEq/L Carbon Dioxide 22 L (23-29) mEq/L BUN 22 H (6-20) mg/dL Creatinine 0.75 (0.60-1.20) mg/dL Est GFR ( Amer) > 60 (> 60) Est GFR (Non-Af Amer) > 60 (> 60) BUN/Creatinine Ratio 29 H (6-26) Glucose 83 (70-105) mg/dL Calculated Osmolality 290 (280-300) Calcium 9.0 (8.6-10.3) mg/dL Urine Color Yellow (Yellow) Urine Clarity Cloudy A (Clear) Urine pH 6.0 (5.0-8.0) pH Units Ur Specific [place] 1.017 (1.010-1.025) Urine Protein 30 H (Neg-Trace) mg/dL Urine Glucose (UA) Normal (Normal) mg/dL Urine Ketones Negative (Negative) mg/dL Urine Blood Small H (Negative) Urine Nitrite Negative (Negative) Urine Bilirubin Negative (Negative) Urine Urobilinogen Normal (Normal) mg/dL Ur Leukocyte Esterase Moderate H (Negative) Urine Microscopic RBC 15-30 H (0-3) per hpf Urine Microscopic WBC 50-100 H (0-3) per hpf Ur Squamous Epith Cells Many H (None-Few) per lpf Urine Bacteria Moderate H (None-Few) per hpf Hyaline Casts None Seen (None-Few) per lpf Ur Culture Indicated? NO. A (NO)
[2018-08-21 19:23] LABS: Basophils # 0.1 K/mcL (0.0-0.2); Basophils % 0.9 %; Eosinophils # 0.3 K/mcL (0.0-0.6); Eosinophils % 3.9 %; Hematocrit 40.2 % (35.3-44.9); Hemoglobin 13.3 g/dL (11.5-15.4); Immature Granulocytes % 0.1 % (0-4); Lymphocytes # 2.8 K/mcL (0.6-4.6); Lymphocytes % 37.4 %; Mean Corpuscular HGB Conc 33.1 g/dL (31.6-35.5); Mean Corpuscular Hemoglobin 31.2 pg (28.0-33.3); Mean Corpuscular Volume 94.4 fL (83.0-100.0); Mean Platelet Volume 10.3 fL (9.4-12.4); Monocytes # 0.6 K/mcL (0.0-1.3); Monocytes % 7.8 %; Neutrophils # 3.7 K/mcL (1.6-8.9); Platelet Count 232 K/mcL (140-400); Red Blood Count 4.26 M/mcL (3.82-4.97); Red Cell Distribution Width 13.3 % (11.5-14.5); Segmented Neutrophils % 49.9 %
[2018-08-21 19:29] LABS: Bilirubin,Urine Negative (Negative); Blood,Urine Small (Negative); Clarity,Urine Cloudy (Clear); Color,Urine Yellow (Yellow); Glucose,Urine (UA) Normal (Normal); Ketones,Urine Negative (Negative); Leukocyte Esterase,Urine Moderate (Negative); Nitrite,Urine Negative (Negative); Protein,Urine 30 mg/dL (Neg-Trace); Specific Gravity,Urine 1.017 (1.010-1.025); Urobilinogen,Urine Normal (Normal)
[2018-08-21 19:30] LABS: Bacteria,Urine Moderate per hpf (None-Few); Hyaline Casts,Urine None Seen per lpf (None-Few); RBC,Urine 15-30 per hpf (0-3); Squamous Epithelial Cell,Urine Many per lpf (None-Few); WBC,Urine 50-100 per hpf (0-3)
[2018-08-21 19:30] LABS: BUN/Creatinine Ratio 29 (6-26); Blood Urea Nitrogen 22 mg/dL (6-20); Carbon Dioxide 22 mEq/L (23-29); Chloride 109 mEq/L (98-107); Glucose 83 mg/dL (70-105); Osmolality,Calculated 290 (280-300); Potassium 3.8 mEq/L (3.5-5.1); Sodium 139 mEq/L (136-145); eGFR For Non-African Americans > 60 (> 60)
[2018-08-21] MEDS ORDERED: Naloxone 0.4 MG/ML INJ IVP PRN (23:24)
[2018-08-21] MEDS ORDERED: Acetaminophen 325 MG TABLET PO PRN (23:24)
[2018-08-21] MEDS ORDERED: Acetaminophen/Butalbital/CaffeineTABLET PO PRN (23:29)
[2018-08-21] MEDS ORDERED: Levalbuterol 1 PUFF INHALER IH PRN (23:29)
[2018-08-22] MEDS: 0.9 % Sodium Chloride w KCl 20 MEQ/1,000 ML MLS IVC SCH ×2 (00:31→09:35)
[2018-08-22] MEDS: Piperacillin/Tazobactam 3.375 GM in 0.9 % Sodium Chloride Mini Bag 100 ML IVPB SCH ×3 (00:32→17:26)
--- NOTE | 2018-08-22 00:48 | Internal Med History&Physical ---
Date of Encounter: 08/21/18 Time of Encounter: 23:15 Internal Medicine - H&P: HPI Chief complaint: dysuria; flank pain Admitted From: Emergency Dept Plans for Post Hospital Care: Home History of present illness: Ms. Acosta is a 58 year old female who presents with a three-day history of worsening dysuria, frequency, nausea, vomiting, and flank pain. She has had subjective fevers and chills but no night sweats. She had been on 2 different antibiotics for UTI symptoms over the last 2 weeks. Despite the antibiotics, her symptoms have progressed and worsened. Workup in ER revealed patient to have persistent UTI and clinical findings concerning for pyelonephritis. She was therefore admitted to hospitalist service. Upon my assessment of the patient, she reiterates the above history. I reviewed her old labs and recent urine culture revealing Escherichia coli as the pathogen in her urine. Of note, patient has multiple drug allergies listed. She received a dose of Zosyn in the ER and tolerated that without any difficulty. She denies any penicillin allergy except for Augmentin causing diarrhea. Regarding her UTI history, patient states that she has had frequent and recurrent UTIs in the past. She has not been hospitalized for UTI/pyelonephritis in over 30 years, however. She has never seen urology or had any workup for her recurrent UTI in the past. Past Med Surg Social Fam HX - Past Medical History Attestation: Yes The following information was validated with the patient. Source: patient, old records reviewed Medical history: arthritis, cancer, CHF, COPD, fibromyalgia, GERD, hyperlipidemia, hypertension, migraine, thyroid disease Additional medical history: hypothyroidism. uterine ca Psychiatric history: anxiety, ADHD, depression - Past Surgical History Surgical History: appendectomy, breast surgery, , cancer surgery, cholecystectomy, hysterectomy Additional surgical history: bladder suspension, double mastectomy, left arm fracture surgery with metal placed - Social History Smoking Status: Current every day smoker Packs per day: .5 Smokeless Tobacco Status: No Alcohol use: none Drug use: none Activity Level: Independent ambulation Recent Out of Country Travel Within the Last 8 Weeks: No - Family History Mother Living Status: Age at : 77 Cause of : CHF Hx Family Cardiac Disorders: Yes Hx Family Respiratory Disorders: Yes (copd) Hx Family Cancer: Yes Internal Medicine - H&P: Meds Atorvastatin [Lipitor] 10 mg PO HS #0 05/26/15 [History] Butalb/Acetaminophen/Caffeine [Fioricet 50-300-40 mg Capsule] 1 mg PO DAILY PRN 05/26/15 [History] Carvedilol [Coreg] 3.125 mg PO BIDWM 05/26/15 [History] Citalopram Hydrobromide [Celexa] 20 mg PO DAILY 05/26/15 [History] Digoxin [Lanoxin] 0.125 mg PO DAILY 05/26/15 [History] LORazepam [Ativan] 0.25 mg PO DAILY PRN 05/26/15 [History] Methocarbamol [Robaxin] 750 mg PO Q8HR PRN 05/26/15 [History] Ropinirole [Requip] 3 mg PO DAILY PRN 05/26/15 [History] Levothyroxine Sodium [Tirosint] 50 mcg PO DAILY 08/04/17 [History] Levalbuterol [Xopenex] 1 puff IH PRN PRN #1 inhaler 03/28/18 [Rx] Ondansetron ODT [Zofran ODT] 4 mg SL Q4HR PRN #12 tab.rapdis 08/02/18 [Rx] Buspirone HCl [Buspar] 10 mg PO BID 08/21/18 [History] Oxybutynin Chloride [Ditropan Xl] 10 mg PO DAILY 08/21/18 [History] Sucralfate [Carafate] 1 gm PO BID 08/21/18 [History] Allergy/AdvReac Type Severity Reaction Status Date / Time cephalexin [From Keflex] Allergy Hives Verified 08/21/18 17:16 Sulfa (Sulfonamide Allergy Hives Verified 08/21/18 17:16 Antibiotics) tetracycline Allergy Hives Verified 08/21/18 17:16 adhesive AdvReac Rash Verified 08/21/18 17:16 clavulanic acid AdvReac Diarrhea Verified 08/21/18 17:16 [From Augmentin] codeine AdvReac Abdominal Verified 08/21/18 17:16 Pain hydrocodone [From Vicodin] AdvReac Migraine Verified 08/21/18 17:16 levofloxacin [From Levaquin] AdvReac Diarrhea Verified 08/21/18 17:16 morphine AdvReac Abdominal Verified 08/21/18 17:16 Pain NSAIDS (Non-Steroidal AdvReac See Verified 08/21/18 17:16 Anti-Inflamma Comments tape Allergy Rash Uncoded 04/27/18 20:46 emycin AdvReac Abdominal Uncoded 04/27/18 20:46 Pain - Constitutional Constitutional: chills, fever(s), no night sweats - EENT Eyes: no blurry vision, no change in vision Ears: no ear pain, no tinnitus Nose, mouth and throat: no nasal congestion, no sinus pressure, no sore throat - Cardiovascular Cardiovascular ROS IM: no chest pain, no dyspnea - Respiratory Respiratory: no cough, no chest congestion, no excessive phlegm production, no change in phlegm color - Gastrointestinal Gastrointestinal: nausea, vomiting, no abdominal pain, no diarrhea, no hematemesis, no hematochezia, no melena - Genitourinary Genitourinary: dysuria, flank pain, urinary frequency, urinary urgency, no hematuria - Musculoskeletal Musculoskeletal ROS IM: no arthralgias, no back pain - Integumentary Integumentary IM: no rash, no jaundice - Neurological Neurological ROS: no dizziness, no focal weakness, no frequent falls, no headache(s) - Psychiatric Psychiatric: no anxiety, no depression - Endocrine Endocrine IM: no polydipsia, no polyphagia, no polyuria - Allergic/Immunologic Allergic/Immunologic: no GI upset with certain foods - Constitutional Vitals: Temp Pulse Resp BP Pulse Ox 96.9 F L 58 16 111/64 96 08/21/18 21:59 08/21/18 21:59 08/21/18 21:59 08/21/18 21:59 08/21/18 21:59 General appearance: Present: mild distress, A&O X 3 Exam: looks mildly dehydrated - Head Head exam: Present: atraumatic, normal inspection - Eye Eye exam: Present: EOMI, PERRL. Absent: scleral icterus Pupils: Present: normal accommodation - ENT ENT exam: Present: mucous membranes dry, normal exam, normal oropharynx - Neck Neck exam general surgery: Present: full ROM, supple. Absent: lymphadenopathy, tenderness, nuchal rigidity, thyromegaly - Respiratory Respiratory exam: Present: CTAB. Absent: chest wall tenderness, rales, respiratory distress, rhonchi, wheezes - Cardiovascular Cardiovascular exam: Present: RRR, +S1, +S2. Absent: diastolic murmur, systolic murmur - GI/Abdominal GI/Abdominal exam: Present: normal bowel sounds, soft, tenderness (suprapubic). Absent: guarding, hepatomegaly, mass, rebound, splenomegaly - Extremities Exam Extremities exam: Present: full ROM, normal capillary refill, warm, radial pulses palpable and symmetrical. Absent: calf tenderness, joint swelling, pedal edema, tenderness - Back Exam Back exam: Present: CVA tenderness (L), CVA tenderness (R). Absent: normal inspection - Neurological Exam Neurological exam: Present: alert, CN II-XII intact, oriented X3, no focal deficits, strengths equal and symetr throughout - Psychiatric Psychiatric exam: Present: normal affect, normal mood - Skin Skin exam: Present: dry, intact, warm. Absent: rash Internal Med - H&P Results - Labs CBC & Chem 7: 08/21/18 18:48 08/21/18 18:48 Labs: Short CBC 08/21/18 Range/Units 18:48 WBC 7.5 (4.3-11.1) K/mcL Hgb 13.3 (11.5-15.4) g/dL Hct 40.2 (35.3-44.9) % Plt Count 232 (140-400) K/mcL Neutrophils # 3.7 (1.6-8.9) K/mcL BMP 08/21/18 18:48 Sodium 139 Potassium 3.8 Chloride 109 H Carbon Dioxide 22 L BUN 22 H Creatinine 0.75 Glucose 83 Calcium 9.0 Urine 08/21/18 Range/Units 18:39 Urine Color Yellow (Yellow) Urine Clarity Cloudy A (Clear) Urine pH 6.0 (5.0-8.0) pH Units Ur Specific [place] 1.017 (1.010-1.025) Urine Protein 30 H (Neg-Trace) mg/dL Urine Glucose (UA) Normal (Normal) mg/dL - Assessment and plan (1) Pyelonephritis Current Visit: Yes Status: Acute Assessment and plan: 1. Urine culture obtained in ER. 2. Continue IV Zosyn for treatment of E. Coli UTI/pyelonephritis. 3. Patient failed outpatient treatment. 4. If symptoms do not improve or fevers develop, she may need imaging to rule out deena-nephric abscess. (2) Hypertension Current Visit: Yes Status: Chronic Assessment and plan: 1. Continue home meds as appropriate. 2. Monitor BP and adjust meds as necessary. Qualifiers: Hypertension type: essential hypertension Qualified Code(s): I10 - Essential (primary) hypertension (3) DVT prophylaxis Current Visit: Yes Status: Acute Assessment and plan: 1. Heparin SQ.
[2018-08-22] MEDS: *HR* LORazepam 0.5 MG TABLET PO PRN (01:57)
[2018-08-22] MEDS: Ondansetron 4 MG/2 ML VIAL IVP PRN ×3 (04:36→18:07)
[2018-08-22] MEDS: *HR* Heparin 5,000 UNIT/ML VIAL SQ SCH ×2 (04:39→17:27)
[2018-08-22 05:52] LABS: Basophils # 0.1 K/mcL (0.0-0.2); Basophils % 0.9 %; Eosinophils # 0.3 K/mcL (0.0-0.6); Eosinophils % 4.2 %; Hematocrit 35.6 % (35.3-44.9); Hemoglobin 11.7 g/dL (11.5-15.4); Immature Granulocytes % 0.1 % (0-4); Lymphocytes % 44.4 %; Mean Corpuscular HGB Conc 32.9 g/dL (31.6-35.5); Mean Corpuscular Volume 94.2 fL (83.0-100.0); Mean Platelet Volume 10.5 fL (9.4-12.4); Monocytes # 0.6 K/mcL (0.0-1.3); Monocytes % 8.3 %; Neutrophils # 2.9 K/mcL (1.6-8.9); Platelet Count 195 K/mcL (140-400); Red Blood Count 3.78 M/mcL (3.82-4.97); Red Cell Distribution Width 13.3 % (11.5-14.5); Segmented Neutrophils % 42.1 %
[2018-08-22 05:59] LABS: Prothrombin Time 11.5 Seconds (9.4-12.1)
[2018-08-22 06:01] LABS: Activated Partial Thrombo Time 31.2 Seconds (26.0-36.0)
[2018-08-22 06:10] LABS: Alanine Aminotransferase 7 Units/L (7-52); Albumin 3.3 g/dL (3.5-5.7); Albumin/Globulin Ratio 1.8 (1.1-2.2); Alkaline Phosphatase 81 Units/L (34-104); Aspartate Amino Transferase 12 Units/L (13-39); BUN/Creatinine Ratio 22 (6-26); Bilirubin,Total 0.4 mg/dL (0.3-1.0); Blood Urea Nitrogen 21 mg/dL (6-20); Calcium 7.9 mg/dL (8.6-10.3); Carbon Dioxide 18 mEq/L (23-29); Chloride 117 mEq/L (98-107); Globulin 1.8 g/dL (2.4-3.5); Glucose 111 mg/dL (70-105); Magnesium 1.7 mg/dL (1.6-2.6); Osmolality,Calculated 292 (280-300); Potassium 3.9 mEq/L (3.5-5.1); Sodium 139 mEq/L (136-145); Total Protein 5.1 g/dL (6.4-8.9); eGFR For Non-African Americans > 60 (> 60)
--- NOTE | 2018-08-22 09:19 | Internal Med Progress Note ---
Hospitalist Progress Note - Encounter Date of Encounter: 08/22/18 Time of Encounter: 08:00 - Subjective Interval History: patient was seen adn examiend at bedside reports that she is feeling much better. suprapubic pain and back pain has improved. denies N/v/D, CP, SOB or palpitations, tolerating PO diet, pain is controlled - Exam Vitals: Temp Pulse Resp BP Pulse Ox 98 F 50 14 101/53 96 08/22/18 06:59 08/22/18 06:59 08/22/18 06:59 08/22/18 06:59 08/22/18 06:59 Exam: General: Patient is alert, oriented, no acute distress, Head: atraumatic, normocephalic, Eye: normal appearance, PERRL, no scleral icterus, no conjunctival injection ENT: mucous membranes moist, normal external ear exam Neck: normal inspection, trachea midline, full ROM, no carotid bruits Chest: normal inspection, symmetric chest rise Respiratory: Good respiratory effort. Bilateral breath sounds are clear without wheezing, crackles, or rhonchi. Cardiovascular: Regular rate and rhythm. s1 and s2 No clicks, rubs, gallops, or murmors. Abdomen: Bowel sounds present normoactive x-4 quadrants. Abdomen is soft, nondistended. no Epigastric tenderness. No guarding or rebound. No organomega ly noted, bilateral CVA tenderness musculoskeletal: Spontaneously moving all extremities. no edema, no calf tenderness Skin: warm, dry, intact. Neuro: Alert and oriented x4. Cranial nerves 2-12 is intact. No focal deficit Psych: Patient's affect is normal - Assessment and Plan (1) Pyelonephritis Current Visit: Yes Status: Acute Assessment and Plan: UA positive, bilateral CVA tenderness Urine culture obtained in ER- pending will deescalate as per Cx Continue IV Zosyn for treatment of E. Coli UTI/pyelonephritis. Patient failed outpatient treatment. If no improvement to above symptoms and/or if she develops fever, or SIRS consider repeat CT A/P CT 07/30 IMPRESSION: 1. Nonspecific diffuse urinary bladder wall thickening may be related to cystitis, new comparing with recent prior study. Correlate with urinalysis. 2. Degenerative changes lower lumbar spine with grade 1 anterolisthesis L4 on L5. (2) Hypertension Current Visit: Yes Status: Chronic Assessment and Plan: Continue home meds if not CI Monitor BP and adjust meds as necessary. (3) DVT prophylaxis Current Visit: Yes Status: Acute Assessment and Plan: Heparin SQ. - Time Spent with Patient Total time spent is greater than 50% in coordination of care (as documented) at patient's floor/unit and/or counseling patient: Internal Medicine: Result - Labs CBC & Chem 7: 08/22/18 05:17 08/22/18 05:17 Labs: Short CBC 08/21/18 08/22/18 Range/Units 18:48 05:17 WBC 7.5 6.8 (4.3-11.1) K/mcL Hgb 13.3 11.7 D (11.5-15.4) g/dL Hct 40.2 35.6 (35.3-44.9) % Plt Count 232 195 (140-400) K/mcL Neutrophils # 3.7 2.9 (1.6-8.9) K/mcL BMP 08/21/18 08/22/18 18:48 05:17 Sodium 139 139 Potassium 3.8 3.9 Chloride 109 H 117 H Carbon Dioxide 22 L 18 L BUN 22 H 21 H Creatinine 0.75 0.95 Glucose 83 111 H Calcium 9.0 7.9 L Liver Function 08/22/18 Range/Units 05:17 Total Bilirubin 0.4 (0.3-1.0) mg/dL AST 12 L (13-39) Units/L ALT 7 (7-52) Units/L Alkaline Phosphatase 81 (34-104) Units/L Albumin 3.3 L (3.5-5.7) g/dL Urine 08/21/18 Range/Units 18:39 Urine Color Yellow (Yellow) Urine Clarity Cloudy A (Clear) Urine pH 6.0 (5.0-8.0) pH Units Ur Specific [place] 1.017 (1.010-1.025) Urine Protein 30 H (Neg-Trace) mg/dL Urine Glucose (UA) Normal (Normal) mg/dL - ABG Interpretation ABG results: PT/INR, D-dimer PT 11.5 Seconds (9.4-12.1) 08/22/18 05:17 Consult Discharge Plan - Plan Referrals: Toro Olivier [Primary Care Provider] - (2) Hypertension Qualifiers: Hypertension type: essential hypertension Qualified Code(s): I10 - Essential (primary) hypertension
[2018-08-22] MEDS: Sucralfate 1 GM TABLET PO SCH ×2 (09:36→20:21)
[2018-08-22] MEDS: *HR* Digoxin 0.125 MG TABLET PO SCH (09:37)
[2018-08-23] MEDS: Piperacillin/Tazobactam 3.375 GM in 0.9 % Sodium Chloride Mini Bag 100 ML IVPB SCH ×3 (00:12→17:43)
--- NOTE | 2018-08-23 00:35 | Event Note ---
Date of Encounter: 08/23/18 Time of Encounter: 00:09 Notified by nurse of patient complaining of chest pressure. Patient assessed at bedside. Pain worse with coughing and deep breathing. Patient states she sometimes has similar chest pressure at home intermittently that resolves spontaneously. EKG shows sinus bradycardia. Will order troponin.
[2018-08-23] MEDS: *HR* Heparin 5,000 UNIT/ML VIAL SQ SCH ×2 (05:28→17:42)
[2018-08-23] MEDS: *HR* Digoxin 0.125 MG TABLET PO SCH (09:43)
[2018-08-23] MEDS: Sucralfate 1 GM TABLET PO SCH ×2 (09:43→20:01)
[2018-08-23] MEDS: Ondansetron 4 MG/2 ML VIAL IVP PRN ×2 (13:09→20:02)
--- NOTE | 2018-08-23 13:19 | Internal Med Progress Note ---
Hospitalist Progress Note - Encounter Date of Encounter: 08/23/18 Time of Encounter: 08:16 - Subjective Interval History: patient was seen examined at bedside reports that she was feeling better however developed worsening back pain overnight that radiated to her chest. she reports pain on deep breathing extending from her back to her chest. denies N/v/D, CP, SOB or palpitations, tolerating PO diet, currently reports that pain is controlled - Exam Vitals: Temp Pulse Resp BP Pulse Ox 98.0 F 48 14 99/60 97 08/23/18 10:24 08/23/18 10:24 08/23/18 10:24 08/23/18 10:24 08/23/18 10:24 Exam: General: Patient is alert, oriented, no acute distress, Head: atraumatic, normocephalic, Eye: normal appearance, PERRL, no scleral icterus, no conjunctival injection ENT: mucous membranes moist, normal external ear exam Neck: normal inspection, trachea midline, full ROM, no carotid bruits Chest: normal inspection, symmetric chest rise Respiratory: Good respiratory effort. Bilateral breath sounds are clear without wheezing, crackles, or rhonchi. Cardiovascular: Regular rate and rhythm. s1 and s2 No clicks, rubs, gallops, or murmors. Abdomen: Bowel sounds present normoactive x-4 quadrants. Abdomen is soft, nondistended. no Epigastric tenderness. No guarding or rebound. No organomegaly noted, bilateral CVA tenderness (improved) musculoskeletal: Spontaneously moving all extremities. no edema, no calf tenderness Skin: warm, dry, intact. Neuro: Alert and oriented x4. Cranial nerves 2-12 is intact. No focal deficit Psych: Patient's affect is normal - Assessment and Plan (1) Pyelonephritis Current Visit: Yes Status: Acute Assessment and Plan: UA positive, bilateral CVA tenderness Urine culture pending will deescalate as per Cx - nursing staff aware Continue IV Zosyn for treatment of E. Coli UTI/pyelonephritis. Patient failed outpatient treatment. If no improvement to above symptoms and/or if she develops fever, or SIRS consi kena repeat CT A/P CT 07/30 IMPRESSION: 1. Nonspecific diffuse urinary bladder wall thickening may be related to cystitis, new comparing with recent prior study. Correlate with urinalysis. 2. Degenerative changes lower lumbar spine with grade 1 anterolisthesis L4 on L5. (2) Hypertension Current Visit: Yes Status: Chronic Assessment and Plan: Continue home meds if not CI Monitor BP and adjust meds as necessary. (3) DVT prophylaxis Current Visit: Yes Status: Acute Assessment and Plan: Heparin SQ. - Time Spent with Patient Total time spent is greater than 50% in coordination of care (as documented) at patient's floor/unit and/or counseling patient: Internal Medicine: Result - Labs CBC & Chem 7: 08/22/18 05:17 08/22/18 05:17 Labs: Cardiac Enzymes 08/23/18 Range/Units 00:49 Troponin I < 0.03 (< 0.04) ng/mL - ABG Interpretation ABG results: PT/INR, D-dimer PT 11.5 Seconds (9.4-12.1) 08/22/18 05:17 Consult Discharge Plan - Plan Referrals: Toro Olivier [Primary Care Provider] - ___ (2) Hypertension Qualifiers: Hypertension type: essential hypertension Qualified Code(s): I10 - Essential (primary) hypertension
[2018-08-24 05:09] LABS: Hematocrit 40.6 % (35.3-44.9); Hemoglobin 12.9 g/dL (11.5-15.4); Mean Corpuscular HGB Conc 31.8 g/dL (31.6-35.5); Mean Corpuscular Hemoglobin 30.6 pg (28.0-33.3); Mean Corpuscular Volume 96.2 fL (83.0-100.0); Mean Platelet Volume 10.9 fL (9.4-12.4); Platelet Count 220 K/mcL (140-400); Red Blood Count 4.22 M/mcL (3.82-4.97); Red Cell Distribution Width 13.2 % (11.5-14.5)
[2018-08-24] MEDS: Piperacillin/Tazobactam 3.375 GM in 0.9 % Sodium Chloride Mini Bag 100 ML IVPB SCH ×3 (05:24→16:53)
[2018-08-24] MEDS: *HR* Heparin 5,000 UNIT/ML VIAL SQ SCH ×2 (05:26→16:54)
[2018-08-24 05:34] LABS: BUN/Creatinine Ratio 15 (6-26); Blood Urea Nitrogen 15 mg/dL (6-20); Calcium 8.6 mg/dL (8.6-10.3); Carbon Dioxide 22 mEq/L (23-29); Chloride 111 mEq/L (98-107); Glucose 84 mg/dL (70-105); Osmolality,Calculated 290 (280-300); Sodium 140 mEq/L (136-145); eGFR For Non-African Americans 59 (> 60)
[2018-08-24] MEDS: *HR* Digoxin 0.125 MG TABLET PO SCH (08:51)
[2018-08-24] MEDS: Sucralfate 1 GM TABLET PO SCH ×2 (08:56→21:18)
[2018-08-24] MEDS: Ondansetron 4 MG/2 ML VIAL IVP PRN ×2 (09:04→16:58)
--- NOTE | 2018-08-24 10:48 | Internal Med Progress Note ---
Hospitalist Progress Note - Encounter Date of Encounter: 08/24/18 Time of Encounter: 10:43 - Subjective Interval History: Patient with history of CHF, COPD, fibromyalgia, high cholesterol, hypertension patient was admitted with nausea vomiting and dysuria and some back pain diagnosed with pyelonephritis on Zosyn patient today on follow-up exam she s ays she feels better no more nausea and vomiting she says she does not feel well enough to be discharged urine culture is not showing any report nurse reports it was not sent will send now for culture and continue current antibiotic her blood pressure is low so will stopped Coreg - Exam Vitals: Temp Pulse Resp BP Pulse Ox 98.7 F 60 14 91/52 94 08/24/18 07:12 08/24/18 07:12 08/24/18 07:12 08/24/18 07:12 08/24/18 07:12 Exam: General: Patient is alert, oriented, no acute distress, Head: atraumatic, normocephalic, Eye: normal appearance, PERRL, no scleral icterus, no conjunctival injection ENT: mucous membranes moist, normal external ear exam Neck: normal inspection, trachea midline, full ROM, no carotid bruits Chest: normal inspection, symmetric chest rise Respiratory: Good respiratory effort. Bilateral breath sounds are clear without wheezing, crackles, or rhonchi. Cardiovascular: Regular rate and rhythm. s1 and s2 No clicks, rubs, gallops, or murmors. Abdomen: Bowel sounds present normoactive x-4 quadrants. Abdomen is soft, nondistended. no Epigastric tenderness. No guarding or rebound. No organomegaly noted, bilateral CVA tenderness (improved) musculoskeletal: Spontaneously moving all extremities. no edema, no calf tenderness Skin: warm, dry, intact. Neuro: Alert and oriented x4. Cranial nerves 2-12 is intact. No focal deficit Psych: Patient's affect is normal - Assessment and Plan (1) Pyelonephritis Current Visit: Yes Status: Acute Assessment and Plan: on zosyn clinically better urine c ultures was not done will resend by nurse (2) COPD (chronic obstructive pulmonary disease) Current Visit: No Status: Chronic Assessment and Plan: no active wheezing (3) Hypertension Current Visit: Yes Status: Chronic Assessment and Plan: BP low will stop coreg for now - Time Spent with Patient Total time spent is greater than 50% in coordination of care (as documented) at patient's floor/unit and/or counseling patient: Internal Medicine: Result - Labs CBC & Chem 7: 08/24/18 04:22 08/24/18 04:22 Labs: Short CBC 08/24/18 Range/Units 04:22 WBC 8.2 (4.3-11.1) K/mcL Hgb 12.9 (11.5-15.4) g/dL Hct 40.6 (35.3-44.9) % Plt Count 220 (140-400) K/mcL BMP 08/24/18 04:22 Sodium 140 Potassium 4.0 Chloride 111 H Carbon Dioxide 22 L BUN 15 Creatinine 0.97 Glucose 84 Calcium 8.6 - ABG Interpretation ABG results: PT/INR, D-dimer PT 11.5 Seconds (9.4-12.1) 08/22/18 05:17 Consult Discharge Plan - Plan Referrals: Toro Olivier [Primary Care Provider] - (2) COPD (chronic obstructive pulmonary disease) Qualifiers: COPD type: emphysema Emphysema type: panlobular Qualified Code(s): J43.1 - Panlobular emphysema (3) Hypertension Qualifiers: Hypertension type: essential hypertension Qualified Code(s): I10 - Essential (primary) hypertension
[2018-08-24] MEDS ORDERED: Acetaminophen/Butalbital/CaffeineTABLET PO ONE (21:35)
[2018-08-24] MEDS: *HR* LORazepam 0.5 MG TABLET PO PRN (22:10)
[2018-08-25] MEDS: Ondansetron 4 MG/2 ML VIAL IVP PRN ×2 (00:11→13:01)
[2018-08-25] MEDS: Piperacillin/Tazobactam 3.375 GM in 0.9 % Sodium Chloride Mini Bag 100 ML IVPB SCH ×2 (04:02→11:18)
[2018-08-25] MEDS: *HR* Heparin 5,000 UNIT/ML VIAL SQ SCH (05:40)
[2018-08-25] MEDS: *HR* Digoxin 0.125 MG TABLET PO SCH (08:16)
[2018-08-25] MEDS: Sucralfate 1 GM TABLET PO SCH (08:17)
[2018-08-25 10:31] VITALS: BP 90/51
[2018-08-25] MEDS ORDERED: Acetaminophen/Butalbital/CaffeineTABLET PO ONE (12:01)
--- NOTE | 2018-08-25 12:05 | Discharge Summary ---
- NOTES TO OUTPATIENT PROVIDER Notes to Outpatient Provider: Patient with history of recurrent UTI was admitted for another about of urinary tract infection. She has multiple drug allergies and did not want to take any of cephalosporin, sulfa abx, tetracyclines, augmentin (because of clavulanic acid), or levaquin. Tolerated zosyn well while in the hospital and based on the latest culture that grew E.coli that was sensitive to most of the drugs that she is allergic to (except macrobid), she will be discharged home with PO macrobid. States that she is to be put on suppressive abx per her PCP so close outpatient follow up was again emphasized. Coreg on hold due to borderline BP until the outpatient follow up. Orders not resulted at time of discharge: Pending orders 08/24/18 11:24 Culture,Urine [RM] Routine Date of Encounter: 08/25/18 Time of Encounter: 08:30 - Discharge Diagnosis (1) Hypertension Priority: Secondary Status: Chronic Qualifiers: Hypertension type: essential hypertension Qualified Code(s): I10 - Essential (primary) hypertension (2) DVT prophylaxis Priority: Secondary Status: Acute (3) UTI (urinary tract infection) Priority: Primary Status: Acute Qualifiers: Urinary tract infection type: site unspecified Hematuria presence: without hematuria Qualified Code(s): N39.0 - Urinary tract infection, site not specified Hospital course: Ms. Acosta is a 58 year old female with history of recurrent UTI was admitted for another about of urinary tract infection. She has multiple drug allergies and did not want to take any of cephalosporin, sulfa abx, tetracyclines, augmentin (because of clavulanic acid), or levaquin. Tolerated zosyn well while in the hospital and based on the latest culture that grew E.coli that was sensitive to most of the drugs that she is allergic to (except macrobid), she will be discharged home with PO macrobid. States that she is to be put on suppressive abx per her PCP (appointment on 08/28) so will defer further course of abx after Macrobid to her PCP. Coreg on hold due to borderline BP until the outpatient follow up. Discharge discussed with: patient, nurse - Time Spent with Patient Total time spent providing and/or coordinating discharge services: 35 mins - Discharge Medications Prescriptions: Nitrofurantoin (BID) [Macrobid] 100 mg PO BID 5 Days #10 capsule Home Medications: Atorvastatin [Lipitor] 10 mg PO HS #0 05/26/15 [History] Butalb/Acetaminophen/Caffeine [Fioricet 50-300-40 mg Capsule] 1 mg PO DAILY PRN 05/26/15 [History] Citalopram Hydrobromide [Celexa] 20 mg PO DAILY 05/26/15 [History] Digoxin [Lanoxin] 0.125 mg PO DAILY 05/26/15 [History] LORazepam [Ativan] 0.25 mg PO DAILY PRN 05/26/15 [History] Methocarbamol [Robaxin] 750 mg PO Q8HR PRN 05/26/15 [History] Ropinirole [Requip] 3 mg PO DAILY PRN 05/26/15 [History] Levothyroxine Sodium [Tirosint] 50 mcg PO DAILY 08/04/17 [History] Levalbuterol [Xopenex INH] 1 puff IH PRN PRN #1 inhaler 03/28/18 [Rx] Ondansetron ODT [Zofran ODT] 4 mg SL Q4HR PRN #12 tab.rapdis 08/02/18 [Rx] Buspirone HCl [Buspar] 10 mg PO BID 08/21/18 [History] Oxybutynin Chloride [Ditropan Xl] 10 mg PO DAILY 08/21/18 [History] Sucralfate [Carafate] 1 gm PO BID 08/21/18 [History] Nitrofurantoin (BID) [Macrobid] 100 mg PO BID 5 Days #10 capsule 08/25/18 [Rx] Allergies/Adverse Reactions: Allergy/AdvReac Type Severity Reaction Status Date / Time cephalexin [From Keflex] Allergy Hives Verified 08/21/18 17:16 Sulfa (Sulfonamide Allergy Hives Verified 08/21/18 17:16 Antibiotics) tetracycline Allergy Hives Verified 08/21/18 17:16 adhesive AdvReac Rash Verified 08/21/18 17:16 clavulanic acid AdvReac Diarrhea Verified 08/21/18 17:16 [From Augmentin] hydrocodone [From Vicodin] AdvReac Migraine Verified 08/21/18 17:16 levofloxacin [From Levaquin] AdvReac Diarrhea Verified 08/21/18 17:16 morphine AdvReac Abdominal Verified 08/21/18 17:16 Pain NSAIDS (Non-Steroidal AdvReac See Verified 08/21/18 17:16 Anti-Inflamma Comments tape Allergy Rash Uncoded 04/27/18 20:46 emycin AdvReac Abdominal Uncoded 04/27/18 20:46 Pain Date of admission: 08/21/18 23:24 Primary care physician: Toro Olivier - Constitutional Vitals: Temp Pulse Resp BP Pulse Ox 97.6 F 52 15 90/51 94 08/25/18 10:24 08/25/18 10:24 08/25/18 10:24 08/25/18 10:24 08/25/18 10:24 General appearance: Present: mild distress, A&O X 3 Exam: General: Alert and oriented, not in acute distress. Cardiovascular:Normal S1 & S2, No JVD. Pulse regular. Lungs: clear to auscultation, no wheezes/rales Abdomen:Soft, non-tender, no rigidity. Extremities:No deformity or swelling : No CVA tenderness Neurological:Normal cognition and motor skills. Non-focal - Patient Status Disposition: Home, Self-Care Condition: Fair Functional capacity at discharge: independent ambulation Overall status at discharge: patient is progressing back to baseline - Discharge Instructions Instructions: Urinary Tract Infection in Women (DC), Chronic Hypertension (DC), Hypothyroidism (DC) Follow Up With: Toro Olivier [Primary Care Provider] - - Diet and Activity Activity: resume usual activities as tolerated Diet: low salt diet
[2018-08-25] MEDS ORDERED: Bisacodyl 10 MG RECTAL SUPPOSITORY RC ONE (12:33)
--- NOTE | 2018-08-26 09:17 | Electrocardiograph Report ---
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
== END 2018-08-25 13:39 | disposition home or self-care (01) | DRG 690 ==
LOC: 3ANU 17:11 → EMEROOARM 17:11 → 3ANU 21:44 → SUATTDRO 23:24
PROVIDERS: ADMIT Pediatrics; ATTEND Internal Medicine

== ENCOUNTER 2018-10-04 19:42 | Inpatient (IN) ==
--- NOTE | 2018-10-04 20:05 | Emergency Department Note ---
Disposition Clinical Impression: Behavioral disorder Disposition: Admitted As Inpatient Condition: Good Forms: ED Satisfaction Letter Time of Disposition: 20:59 General Adult HPI - General Chief complaint: ED Psychiatric Symptoms Stated complaint: eval Time Seen by Provider: 10/04/18 19:45 Source: patient, EMS Limitations: no limitations - History of Present Illness HPI Narrative: This is a 58-year-old female who comes to emergency department by EMS stating that she called the crisis line last night, went to [facility] today, and is very concerned because she is depressed, and suicidal ideas, and feeling angry at everybody since she has been unable to take her medicines for 7 days. She states she ran out and was unable to afford a new refills. She has no plan for suicide. Pain Scale: 0 - Related Data Home Medications Medication Instructions Recorded Confirmed Atorvastatin [Lipitor] 10 mg PO HS #0 05/26/15 08/21/18 Butalb/Acetaminophen/Caffeine 1 mg PO DAILY PRN 05/26/15 08/21/18 [Fioricet 50-300-40 mg Capsule] Citalopram Hydrobromide [Celexa] 20 mg PO DAILY 05/26/15 08/21/18 Digoxin [Lanoxin] 0.125 mg PO DAILY 05/26/15 08/21/18 LORazepam [Ativan] 0.25 mg PO DAILY PRN 05/26/15 08/21/18 Methocarbamol [Robaxin] 750 mg PO Q8HR PRN 05/26/15 08/21/18 Ropinirole [Requip] 3 mg PO DAILY PRN 05/26/15 08/21/18 Levothyroxine Sodium [Tirosint] 50 mcg PO DAILY 08/04/17 08/21/18 Buspirone HCl [Buspar] 10 mg PO BID 08/21/18 08/21/18 Oxybutynin Chloride [Ditropan Xl] 10 mg PO DAILY 08/21/18 08/21/18 Sucralfate [Carafate] 1 gm PO BID 08/21/18 08/21/18 Previous Rx's Medication Instructions Recorded Levalbuterol [Xopenex INH] 1 puff IH PRN PRN #1 inhaler 03/28/18 Ondansetron ODT [Zofran ODT] 4 mg SL Q4HR PRN #12 tab.rapdis 08/02/18 Cefdinir [Omnicef] 300 mg PO BID #20 capsule 09/01/18 Allergies Allergy/AdvReac Type Severity Reaction Status Date / Time cephalexin [From Keflex] Allergy Hives Verified 10/04/18 19:45 Sulfa (Sulfonamide Allergy Hives Verified 10/04/18 19:45 Antibiotics) tetracycline Allergy Hives Verified 10/04/18 19:45 adhesive AdvReac Rash Verified 10/04/18 19:45 clavulanic acid AdvReac Diarrhea Verified 10/04/18 19:45 [From Augmentin] hydrocodone [From Vicodin] AdvReac Migraine Verified 10/04/18 19:45 levofloxacin [From Levaquin] AdvReac Diarrhea Verified 10/04/18 19:45 morphine AdvReac Abdominal Verified 10/04/18 19:45 Pain NSAIDS (Non-Steroidal AdvReac See Verified 10/04/18 19:45 Anti-Inflamma Comments tape Allergy Rash Uncoded 10/04/18 19:45 emycin AdvReac Abdominal Uncoded 10/04/18 19:45 Pain All systems ED: reviewed and negative except as stated. 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 - Social History Smoking Status: Current every day smoker Smokeless Tobacco Status: No Alcohol use: Reports: none Drug use: Reports: none Physical Exam - General Limitations: no limitations General appearance: alert, in no apparent distress - Head Head exam: atraumatic, normocephalic, normal inspection - Eye Eye exam: Present: normal appearance, PERRL, EOMI - Chest Chest inspection: Present: normal inspection, symmetric chest wall rise - Respiratory Respiratory exam: Present: normal lung sounds bilaterally - Cardiovascular Cardiovascular exam: Present: regular rate, normal rhythm, normal heart sounds - Abdominal Exam Abdominal exam: Present: soft, tenderness Abdominal tenderness: Present: diffuse, mild - Extremities Exam Extremities exam: Present: normal inspection, full ROM, pedal edema (Nonpitting bilateral pedal edema). Absent: tenderness - Neurological Exam Neurological exam: Present: alert, oriented X3 - Psychiatric Psychiatric exam: Present: agitated, suicidal ideation - Skin Skin exam: Present: warm, dry, intact, normal color Course Course Narrative: This is a 58-year-old female with psychiatric illness who appears appropriate for psychiatric. Vital Signs Temperature 99.0 F 10/04/18 19:47 Pulse Rate 66 10/04/18 19:47 Respiratory Rate 17 10/04/18 19:47 Blood Pressure 109/63 10/04/18 19:47 O2 Sat by Pulse Oximetry 97 10/04/18 19:47 Temperature 99.0 F 10/04/18 19:47 Pulse Rate 66 10/04/18 19:47 Respiratory Rate 17 10/04/18 19:47 Blood Pressure 109/63 10/04/18 19:47 O2 Sat by Pulse Oximetry 97 10/04/18 19:47 Oxygen Delivery Oxygen Delivery Room Air Medical Decision Making - MDM Narrative Medical decision making narrative: This is a 58-year-old female with long-term behavioral disorder. She was accepted by psychiatry. - Lab Data Lab results reviewed: Yes I reviewed the patient's lab results. Lab results narrative: CBC was unremarkable BMP was unremarkable Drug screen was negative Salicylates, alcohol, and Tylenol were low Result diagrams: 10/04/18 20:09 10/04/18 20:09 Lab Results 10/04/18 10/04/18 10/04/18 Range/Units 20:00 20:00 20:09 WBC 7.3 (4.3-11.1) K/mcL RBC 4.17 (3.82-4.97) M/mcL Hgb 13.0 (11.5-15.4) g/dL Hct 38.8 (35.3-44.9) % MCV 93.0 (83.0-100.0) fL MCH 31.2 (28.0-33.3) pg MCHC 33.5 (31.6-35.5) g/dL RDW 13.2 (11.5-14.5) % Plt Count 221 (140-400) K/mcL MPV 10.2 (9.4-12.4) fL Immature Gran % 0.3 (0-4) % Seg Neutrophils % 52.1 % Lymphocytes % 36.9 % Monocytes % 6.7 % Eosinophils % 3.2 % Basophils % 0.8 % Neutrophils # 3.8 (1.6-8.9) K/mcL Lymphocytes # 2.7 (0.6-4.6) K/mcL Monocytes # 0.5 (0.0-1.3) K/mcL Eosinophils # 0.2 (0.0-0.6) K/mcL Basophils # 0.1 (0.0-0.2) K/mcL Sodium (136-145) mEq/L Potassium (3.5-5.1) mEq/L Chloride (98-107) mEq/L Carbon Dioxide (23-29) mEq/L BUN (6-20) mg/dL Creatinine (0.60-1.20) mg/dL Est GFR ( Amer) (> 60) Est GFR (Non-Af Amer) (> 60) BUN/Creatinine Ratio (6-26) Glucose (70-105) mg/dL Calculated Osmolality (280-300) Calcium (8.6-10.3) mg/dL Urine Color Yellow (Yellow) Urine Clarity Clear (Clear) Urine pH 5.5 (5.0-8.0) pH Units Ur Specific [place] 1.018 (1.010-1.025) Urine Protein Negative (Neg-Trace) mg/dL Urine Glucose (UA) Normal (Normal) mg/dL Urine Ketones Negative (Negative) mg/dL Urine Blood Negative (Negative) Urine Nitrite Negative (Negative) Urine Bilirubin Negative (Negative) Urine Urobilinogen Normal (Normal) mg/dL Ur Leukocyte Esterase Small H (Negative) Urine Microscopic RBC 0-3 (0-3) per hpf Urine Microscopic WBC 0-3 (0-3) per hpf Ur Squamous Epith Cells Many H (None-Few) per lpf Urine Bacteria None Seen (None-Few) per hpf Hyaline Casts None Seen (None-Few) per lpf Salicylates (15.0-30.0) mg/dL Urine Opiates Screen Negative (Yrcbet=994) ng/mL Acetaminophen (10-20) mcg/mL Ur Barbiturates Screen Negative (Ovpsvk=260) ng/mL Ur Phencyclidine Scrn Negative (Cutoff=25) ng/mL Ur Amphetamines Screen Negative (Rulgrc=7693) ng/mL U Benzodiazepines Scrn Negative (Wsflpu=341) ng/mL Urine Cocaine Screen Negative (Cutoff= 300) ng/mL U Marijuana (THC) Screen Negative (Cutoff = 50) ng/mL Ur Drug Screen Interp See Below Ethyl Alcohol (Less than 10) mg/dL 10/04/18 Range/Units 20:09 WBC (4.3-11.1) K/mcL RBC (3.82-4.97) M/mcL Hgb (11.5-15.4) g/dL Hct (35.3-44.9) % MCV (83.0-100.0) fL MCH (28.0-33.3) pg MCHC (31.6-35.5) g/dL RDW (11.5-14.5) % Plt Count (140-400) K/mcL MPV (9.4-12.4) fL Immature Gran % (0-4) % Seg Neutrophils % % Lymphocytes % % Monocytes % % Eosinophils % % Basophils % % Neutrophils # (1.6-8.9) K/mcL Lymphocytes # (0.6-4.6) K/mcL Monocytes # (0.0-1.3) K/mcL Eosinophils # (0.0-0.6) K/mcL Basophils # (0.0-0.2) K/mcL Sodium 139 (136-145) mEq/L Potassium 3.9 (3.5-5.1) mEq/L Chloride 112 H (98-107) mEq/L Carbon Dioxide 22 L (23-29) mEq/L BUN 9 (6-20) mg/dL Creatinine 0.79 (0.60-1.20) mg/dL Est GFR ( Amer) > 60 (> 60) Est GFR (Non-Af Amer) > 60 (> 60) BUN/Creatinine Ratio 11 (6-26) Glucose 103 (70-105) mg/dL Calculated Osmolality 287 (280-300) Calcium 8.9 (8.6-10.3) mg/dL Urine Color (Yellow) Urine Clarity (Clear) Urine pH (5.0-8.0) pH Units Ur Specific [place] (1.010-1.025) Urine Protein (Neg-Trace) mg/dL Urine Glucose (UA) (Normal) mg/dL Urine Ketones (Negative) mg/dL Urine Blood (Negative) Urine Nitrite (Negative) Urine Bilirubin (Negative) Urine Urobilinogen (Normal) mg/dL Ur Leukocyte Esterase (Negative) Urine Microscopic RBC (0-3) per hpf Urine Microscopic WBC (0-3) per hpf Ur Squamous Epith Cells (None-Few) per lpf Urine Bacteria (None-Few) per hpf Hyaline Casts (None-Few) per lpf Salicylates < 2.5 L (15.0-30.0) mg/dL Urine Opiates Screen (Hegfmc=470) ng/mL Acetaminophen < 10 L (10-20) mcg/mL Ur Barbiturates Screen (Qxprtd=864) ng/mL Ur Phencyclidine Scrn (Cutoff=25) ng/mL Ur Amphetamines Screen (Kcvavx=0876) ng/mL U Benzodiazepines Scrn (Kucpbf=422) ng/mL Urine Cocaine Screen (Cutoff= 300) ng/mL U Marijuana (THC) Screen (Cutoff = 50) ng/mL Ur Drug Screen Interp Ethyl Alcohol < 10 (Less than 10) mg/dL Critical Care Time Critical Care Time: No
[2018-10-04 20:10] LABS: Bilirubin,Urine Negative (Negative); Blood,Urine Negative (Negative); Clarity,Urine Clear (Clear); Color,Urine Yellow (Yellow); Glucose,Urine (UA) Normal (Normal); Ketones,Urine Negative (Negative); Leukocyte Esterase,Urine Small (Negative); Nitrite,Urine Negative (Negative); PH,Urine 5.5 pH Units (5.0-8.0); Protein,Urine Negative (Neg-Trace); Specific Gravity,Urine 1.018 (1.010-1.025); Urobilinogen,Urine Normal (Normal)
[2018-10-04 20:12] LABS: Bacteria,Urine None Seen per hpf (None-Few); Hyaline Casts,Urine None Seen per lpf (None-Few); RBC,Urine 0-3 per hpf (0-3); Squamous Epithelial Cell,Urine Many per lpf (None-Few); WBC,Urine 0-3 per hpf (0-3)
[2018-10-04 20:16] LABS: Amphetamine Screen,Urine Negative ng/mL (Cutoff=1000); Barbiturate Screen,Urine Negative ng/mL (Cutoff=200); Benzodiazepines Screen,Urine Negative ng/mL (Cutoff=200); Cannabinoid Screen,Urine Negative ng/mL (Cutoff = 50); Cocaine Screen,Urine Negative ng/mL (Cutoff= 300); Opiate Screen,Urine Negative ng/mL (Cutoff=300); Phencyclidine Screen,Urine Negative ng/mL (Cutoff=25)
[2018-10-04 20:24] LABS: Basophils # 0.1 K/mcL (0.0-0.2); Basophils % 0.8 %; Eosinophils # 0.2 K/mcL (0.0-0.6); Eosinophils % 3.2 %; Hematocrit 38.8 % (35.3-44.9); Immature Granulocytes % 0.3 % (0-4); Lymphocytes # 2.7 K/mcL (0.6-4.6); Lymphocytes % 36.9 %; Mean Corpuscular HGB Conc 33.5 g/dL (31.6-35.5); Mean Corpuscular Hemoglobin 31.2 pg (28.0-33.3); Mean Platelet Volume 10.2 fL (9.4-12.4); Monocytes # 0.5 K/mcL (0.0-1.3); Monocytes % 6.7 %; Neutrophils # 3.8 K/mcL (1.6-8.9); Platelet Count 221 K/mcL (140-400); Red Blood Count 4.17 M/mcL (3.82-4.97); Red Cell Distribution Width 13.2 % (11.5-14.5); Segmented Neutrophils % 52.1 %
[2018-10-04 20:39] LABS: Acetaminophen < 10 mcg/mL (10-20); BUN/Creatinine Ratio 11 (6-26); Blood Urea Nitrogen 9 mg/dL (6-20); Calcium 8.9 mg/dL (8.6-10.3); Carbon Dioxide 22 mEq/L (23-29); Chloride 112 mEq/L (98-107); Ethanol < 10 mg/dL (Less than 10); Glucose 103 mg/dL (70-105); Osmolality,Calculated 287 (280-300); Potassium 3.9 mEq/L (3.5-5.1); Salicylate < 2.5 mg/dL (15.0-30.0); Sodium 139 mEq/L (136-145); eGFR For Non-African Americans > 60 (> 60)
[2018-10-04] MEDS ORDERED: MOM Conc 10 ML UD.LIQ PO PRN (21:42)
[2018-10-04] MEDS ORDERED: traZODone 50 MG TABLET PO PRN (21:42)
[2018-10-04] MEDS ORDERED: hydrOXYzine pamoate 25 MG CAPSULE PO PRN (21:42)
[2018-10-04] MEDS ORDERED: Acetaminophen 325 MG TABLET PO PRN (21:42)
[2018-10-04] MEDS ORDERED: *HR* LORazepam 1 MG TABLET PO PRN (21:42)
[2018-10-04] MEDS ORDERED: *HR* LORazepam 2 MG/ML VIAL IM PRN (21:42)
[2018-10-04] MEDS ORDERED: Mag Hydrox/Al Hydrox/Simeth 30 ML UDC PO PRN (21:42)
[2018-10-04] MEDS ORDERED: Haloperidol Lactate 5 MG/ML VIAL IM PRN (21:42)
[2018-10-04] MEDS ORDERED: Levalbuterol 1 PUFF INHALER IH PRN (21:52)
--- NOTE | 2018-10-05 11:50 | Psychiatry History & Physical ---
Date of Encounter: 10/05/18 Time of Encounter: 11:45 History of Present Illness Patient Stated Chief Complaint: suicidality Medicare Admission Attestation: For traditional Medicare patients the provided hospital inpatient services are reasonable and necessary and in the case of services not specified as inpatient-only under 42 CFR 419.22 (n), that they are appropriately provided as inpatient services in accordance 42 CFR 412.3. For Critical Access Hospital the patient may reasonably be expected to be discharged or transferred to a hospital within 96 hours after admission to the Critical Access Hospital. Admitted From: Emergency Dept Plans for Post Hospital Care: Home History of Present Illness: Ms. Acosta is a 58 year old female who presents to emergency department by EMS stating that she called the crisis line last night, went to [facility] today, and is very concerned because she is depressed, and suicidal ideas, and feeling angry at everybody since she has been unable to take her medicines for 7 days. She states she ran out and was unable to afford a new refills. She has no plan for suicide. PT currently refuses to participate in the interview process with continue to assess pt. 1.Interval hx 2.Continue current medications 3.Review current labs 4.Pt had an opportunity to ask questions and discuss current treatment plan. 5.Supportive therapy was provided 6.Pt encouraged to consider group or individual therapy 7.Pt was in agreement with treatment plan. 8.Pt was educated on the risks benefits and side effects of current medications. Past Med Surg Social Fam HX - Past Medical History Medical history: arthritis, CHF, COPD, DVT, fibromyalgia, GERD, hyperlipidemia, hypertension, migraine, thyroid disease, TIA - Past Psychiatric History Psychiatric history: Reports: depression, prior suicide attempt, previous psychiatric hospitalization Family psychiatric history: Yes Family History of Suicide: None - Past Surgical History Surgical History: appendectomy, breast surgery, , cancer surgery, cholecystectomy, hysterectomy - Social History Smoking Status: Current every day smoker Smokeless Tobacco Status: No Alcohol use: none Drug use: none - Family History Mother Living Status: Hx Family Cardiac Disorders: Yes Hx Family Respiratory Disorders: Yes (copd) Hx Family Cancer: Yes Medications & Allergies Atorvastatin [Lipitor] 10 mg PO HS #0 05/26/15 [History] Citalopram Hydrobromide [Celexa] 20 mg PO DAILY 05/26/15 [History] Levothyroxine Sodium [Tirosint] 50 mcg PO DAILY 08/04/17 [History] Levalbuterol [Xopenex INH] 1 puff IH PRN PRN #1 inhaler 03/28/18 [Rx] Buspirone HCl [Buspar] 10 mg PO BID 08/21/18 [History] Oxybutynin Chloride [Ditropan Xl] 10 mg PO DAILY 08/21/18 [History] Carvedilol 3.125 mg PO BID 10/04/18 [History] Digoxin [Lanoxin] 0.125 mg PO DAILY 10/04/18 [History] Ropinirole HCl 3 mg PO QPM 10/04/18 [History] Allergy/AdvReac Type Severity Reaction Status Date / Time cephalexin [From Keflex] Allergy Hives Verified 10/04/18 19:45 Sulfa (Sulfonamide Allergy Hives Verified 10/04/18 19:45 Antibiotics) tetracycline Allergy Hives Verified 10/04/18 19:45 adhesive AdvReac Rash Verified 10/04/18 19:45 clavulanic acid AdvReac Diarrhea Verified 10/04/18 19:45 [From Augmentin] hydrocodone [From Vicodin] AdvReac Migraine Verified 10/04/18 19:45 levofloxacin [From Levaquin] AdvReac Diarrhea Verified 10/04/18 19:45 morphine AdvReac Abdominal Verified 10/04/18 19:45 Pain NSAIDS (Non-Steroidal AdvReac See Verified 10/04/18 19:45 Anti-Inflamma Comments tape Allergy Rash Uncoded 10/04/18 19:45 emycin AdvReac Abdominal Uncoded 10/04/18 19:45 Pain Review of Systems Constitutional: Denies: fever, chills, weakness, weight change Eyes: Denies: eye pain, vision change Ears, Nose, Throat: Denies: ear pain, throat pain, dental pain, hearing loss, congestion Cardiovascular: Denies: chest pain, palpitations, dyspnea on exertion Respiratory: Denies: cough, dyspnea, wheezes Gastrointestinal: Denies: abdominal pain, nausea, vomiting, diarrhea, constipation Genitourinary female: Denies: urgency, dysuria, frequency, abnormal menses, dyspareunia Musculoskeletal: Denies: joint swelling, joint pain Integumentary: Denies: rash, lesions, pruritus Neurological: Denies: headache, weakness, numbness, memory loss Psychiatric: Reports: depression, suicidal ideation Endocrine: Denies: fatigue, heat or cold intolerance Hematologic/Lymphatic: Denies: easy bruising, lymphadenopathy Allergic/Immunologic: Denies: urticaria, itchy eyes Exam - HEENT Head exam IM: Present: atraumatic Eye exam IM: Present: EOMI, normal appearance, PERRL ENT exam IM: Present: normal exam - Neurological Neurological exam: Present: CN II-XII intact - Respiratory Respiratory exam IM: Present: CTAB - GI/Abdominal GI/Abdominal exam IM: Present: normal bowel sounds, soft. Absent: tenderness - Extremities Extremities exam IM: Present: full ROM - Skin Skin exam IM: Present: dry, warm - Constitutional Vitals: Temp Pulse Resp BP Pulse Ox 97.6 F 66 20 125/81 98 10/05/18 09:00 10/05/18 09:00 10/05/18 09:00 10/05/18 09:00 10/04/18 22:00 General appearance: age & developmentally appropriate, well-groomed, well- nourished - Musculoskeletal Gait: normal Station: relaxed Strength & Tone: normal for patient - Psychiatric Patient Orientation: Yes Person, Yes Time, Yes Place Level of alertness: Alert Behavior: calm, cooperative, anxious Psychomotor activity: Normal Eye Contact: Maintains Eye Contact Mood Description: Depressed Affect description: congruent with mood, flat Speech Volume: Normal Speech pattern: normal rate, normal rhythm, normal tone, fluent, spontaneous Language & Vocabulary: consistent with education Thought Process: Linear, Goal Oriented Thought Content: Yes Suicidal ideation, No Homicidal ideation, No Overt delusions Perceptual Disturbances: No Auditory hallucinations, No Visual hallucinations Attention Span Ability: Capable of Focused Attention Memory Description: Grossly Intact Patient Reliability: Reliable Historian Fund of knowledge: Yes abstraction ability, Yes average, Yes aware of current events Intelligence Estimate: Average Judgment: Limited Insight: Partial Results - Drug Levels and Toxicology Drug Levels and Toxicology: Drug Levels and Toxicity 10/04/18 10/04/18 20:00 20:09 Urine Opiates Screen Negative Acetaminophen < 10 L Ur Barbiturates Screen Negative Ur Phencyclidine Scrn Negative Ur Amphetamines Screen Negative U Benzodiazepines Scrn Negative Urine Cocaine Screen Negative U Marijuana (THC) Screen Negative Ethyl Alcohol < 10 - Labs Labs: Laboratory Last Values WBC 7.3 K/mcL (4.3-11.1) 10/04/18 20:09 RBC 4.17 M/mcL (3.82-4.97) 10/04/18 20:09 Hgb 13.0 g/dL (11.5-15.4) 10/04/18 20:09 Hct 38.8 % (35.3-44.9) 10/04/18 20:09 MCV 93.0 fL (83.0-100.0) 10/04/18 20:09 MCH 31.2 pg (28.0-33.3) 10/04/18 20:09 MCHC 33.5 g/dL (31.6-35.5) 10/04/18 20:09 RDW 13.2 % (11.5-14.5) 10/04/18 20:09 Plt Count 221 K/mcL (140-400) 10/04/18 20:09 MPV 10.2 fL (9.4-12.4) 10/04/18 20:09 Immature Gran % 0.3 % (0-4) 10/04/18 20:09 Seg Neutrophils % 52.1 % 10/04/18 20:09 Lymphocytes % 36.9 % 10/04/18 20:09 Monocytes % 6.7 % 10/04/18 20:09 Eosinophils % 3.2 % 10/04/18 20:09 Basophils % 0.8 % 10/04/18 20:09 Neutrophils # 3.8 K/mcL (1.6-8.9) 10/04/18 20:09 Lymphocytes # 2.7 K/mcL (0.6-4.6) 10/04/18 20:09 Monocytes # 0.5 K/mcL (0.0-1.3) 10/04/18 20:09 Eosinophils # 0.2 K/mcL (0.0-0.6) 10/04/18 20:09 Basophils # 0.1 K/mcL (0.0-0.2) 10/04/18 20:09 Sodium 139 mEq/L (136-145) 10/04/18 20:09 Potassium 3.9 mEq/L (3.5-5.1) 10/04/18 20:09 Chloride 112 mEq/L (98-107) H 10/04/18 20:09 Carbon Dioxide 22 mEq/L (23-29) L 10/04/18 20:09 BUN 9 mg/dL (6-20) 10/04/18 20:09 Creatinine 0.79 mg/dL (0.60-1.20) 10/04/18 20:09 Est GFR ( Amer) > 60 (> 60) 10/04/18 20:09 Est GFR (Non-Af Amer) > 60 (> 60) 10/04/18 20:09 BUN/Creatinine Ratio 11 (6-26) 10/04/18 20:09 Glucose 103 mg/dL (70-105) 10/04/18 20: Calculated Osmolality 287 (280-300) 10/04/18 20: Calcium 8.9 mg/dL (8.6-10.3) 10/04/18 20:09 Urine Color Yellow (Yellow) 10/04/18 20:00 Urine Clarity Clear (Clear) 10/04/18 20:00 Urine pH 5.5 pH Units (5.0-8.0) 10/04/18 20:00 Ur Specific [place] 1.018 (1.010-1.025) 10/04/18 20:00 Urine Protein Negative mg/dL (Neg-Trace) 10/04/18 20:00 Urine Glucose (UA) Normal mg/dL (Normal) 10/04/18 20:00 Urine Ketones Negative mg/dL (Negative) 10/04/18 20:00 Urine Blood Negative (Negative) 10/04/18 20:00 Urine Nitrite Negative (Negative) 10/04/18 20:00 Urine Bilirubin Negative (Negative) 10/04/18 20:00 Urine Urobilinogen Normal mg/dL (Normal) 10/04/18 20:00 Ur Leukocyte Esterase Small (Negative) H 10/04/18 20:00 Urine Microscopic RBC 0-3 per hpf (0-3) 10/04/18 20:00 Urine Microscopic WBC 0-3 per hpf (0-3) 10/04/18 20:00 Ur Squamous Epith Cells Many per lpf (None-Few) H 10/04/18 20:00 Urine Bacteria None Seen per hpf (None-Few) 10/04/18 20:00 Hyaline Casts None Seen per lpf (None-Few) 10/04/18 20:00 Salicylates < 2.5 mg/dL (15.0-30.0) L 10/04/18 20:09 Urine Opiates Screen Negative ng/mL (Gcfhxr=581) 10/04/18 20:00 Acetaminophen < 10 mcg/mL (10-20) L 10/04/18 20:09 Ur Barbiturates Screen Negative ng/mL (Juqdgy=007) 10/04/18 20:00 Ur Phencyclidine Scrn Negative ng/mL (Cutoff=25) 10/04/18 20:00 Ur Amphetamines Screen Negative ng/mL (Ehierb=4192) 10/04/18 20:00 U Benzodiazepines Scrn Negative ng/mL (Baibil=243) 10/04/18 20:00 Urine Cocaine Screen Negative ng/mL (Cutoff= 300) 10/04/18 20:00 U Marijuana (THC) Screen Negative ng/mL (Cutoff = 50) 10/04/18 20:00 Ur Drug Screen Interp See Below 10/04/18 20:00 Ethyl Alcohol < 10 mg/dL (Less than 10) 10/04/18 20:09 Assessment and Plan (1) Major depressive disorder Current visit: Yes Status: Acute Plan: Admit inpatient for safety and stabilization, Close observation, Suicide Precautions per unit protocol, Encourage participation in unit milieu, Group Therapy, Monitor sleep, Monitor appetite Risks, benefits, side effects, alternatives discussed w/pt: Yes Patient agreeable to treatment: Yes Plans for Post Hospital Care: at Home Qualifiers: Major depression recurrence: recurrent Active/Remission status: currently active Major depression episode severity: severe Psychotic features: without psychotic features Qualified Code(s): F33.2 - Major depressive disorder, recurrent severe without psychotic features (2) Suicidal ideation Current visit: Yes Status: Acute Plan: Admit inpatient for safety and stabilization, Close observation, Suicide Precautions per unit protocol, Encourage participation in unit milieu, Group Therapy, Monitor sleep, Monitor appetite Risks, benefits, side effects, alternatives discussed w/pt: Yes Patient agreeable to treatment: Yes Plans for Post Hospital Care: at Home
--- NOTE | 2018-10-05 16:53 | Electrocardiograph Report ---
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
--- NOTE | 2018-10-06 09:07 | Event Note ---
Date of Encounter: 10/06/18 Time of Encounter: 09:05 - Cardiology Event Note Cardiology consulted for possible restarting patient's home digoxin. Patient has a known history of non-ischemic cardiomyopathy. Patient's LVEF improved to 50% on goal directed medical therapy. Patient follows with cardiology outpatient and had been doing well on her medications. Discussed and reviewed with , will restart digoxin, hold for apical HR less than 60. Cardiology will sign off, re-consult if needed. Thank you.
[2018-10-06] MEDS ORDERED: *HR* Digoxin 0.125 MG TABLET PO SCH (09:15)
[2018-10-06 10:24] VITALS: BP 103/71
--- NOTE | 2018-10-06 13:30 | Discharge Summary ---
Date of Encounter: 10/06/18 Time of Encounter: 13:26 Diagnosis - Discharge Diagnosis (1) Major depressive disorder Status: Acute Qualifiers: Major depression recurrence: recurrent Active/Remission status: currently active Major depression episode severity: severe Psychotic features: without psychotic features Qualified Code(s): F33.2 - Major depressive disorder, recurrent severe without psychotic features Medications - Discharge Medications Prescriptions: Citalopram [CeleXA] 20 mg PO DAILY #30 tablet Atorvastatin [Lipitor] 10 mg PO HS #0 05/26/15 [History] Levothyroxine Sodium [Tirosint] 50 mcg PO DAILY 08/04/17 [History] Levalbuterol [Xopenex INH] 1 puff IH PRN PRN #1 inhaler 03/28/18 [Rx] Buspirone HCl [Buspar] 10 mg PO BID 08/21/18 [History] Oxybutynin Chloride [Ditropan Xl] 10 mg PO DAILY 08/21/18 [History] Carvedilol 3.125 mg PO BID 10/04/18 [History] Digoxin [Lanoxin] 0.125 mg PO DAILY 10/04/18 [History] Ropinirole HCl 3 mg PO QPM 10/04/18 [History] Citalopram [CeleXA] 20 mg PO DAILY #30 tablet 10/06/18 [Rx] Allergy/AdvReac Type Severity Reaction Status Date / Time cephalexin [From Keflex] Allergy Hives Verified 10/04/18 19:45 Sulfa (Sulfonamide Allergy Hives Verified 10/04/18 19:45 Antibiotics) tetracycline Allergy Hives Verified 10/04/18 19:45 adhesive AdvReac Rash Verified 10/04/18 19:45 clavulanic acid AdvReac Diarrhea Verified 10/04/18 19:45 [From Augmentin] hydrocodone [From Vicodin] AdvReac Migraine Verified 10/04/18 19:45 levofloxacin [From Levaquin] AdvReac Diarrhea Verified 10/04/18 19:45 morphine AdvReac Abdominal Verified 10/04/18 19:45 Pain NSAIDS (Non-Steroidal AdvReac See Verified 10/04/18 19:45 Anti-Inflamma Comments tape Allergy Rash Uncoded 10/04/18 19:45 emycin AdvReac Abdominal Uncoded 10/04/18 19:45 Pain Results Procedures and tests throughout hospitalization: Completed Lab Orders Category Date Time Status Acetaminophen Stat Lab 10/04/18 20:09 Completed Basic Metabolic Panel Stat Lab 10/04/18 20:09 Completed Complete Blood Count [HEME] Stat Lab 10/04/18 20:09 Completed Digoxin Routine Lab 10/06/18 09:46 Completed Drug Screen, Urine [UCHEM] Stat Lab 10/04/18 20:00 Completed Ethanol Stat Lab 10/04/18 20:09 Completed Salicylate Stat Lab 10/04/18 20:09 Completed Urinalysis reflex Microscopic [URIN] Stat Lab 10/04/18 20:00 Completed Provider Date of admission: 10/04/18 21:38 Primary care physician: PCP NONE Consults: 10/05/18 07:39 Consult to Hospitalist [CONS] Routine Consulting Provider: Nathan Aguilar Reason for Consult: Possible restart of Digoxin Time Notified: 22:16 Call Completed: Yes Discharging clinician: Catherine Bah Psychiatry Exam - Constitutional Vitals: Temp Pulse Resp BP Pulse Ox 97.5 F L 88 16 103/71 98 10/06/18 09:00 10/06/18 09:00 10/06/18 09:00 10/06/18 09:00 10/06/18 09:00 General appearance: age & developmentally appropriate - Musculoskeletal Gait: normal Station: relaxed Strength & Tone: normal for patient - Psychiatric Patient Orientation: Yes Person, Yes Time, Yes Place Level of alertness: Alert Behavior: calm, cooperative Psychomotor activity: Normal Eye Contact: Maintains Eye Contact Mood Description: Euthymic/stable Affect description: congruent with mood Speech Volume: Normal Speech pattern: normal rate, normal rhythm, normal tone, fluent, spontaneous Language & Vocabulary: consistent with education Thought Process: Linear, Goal Oriented Thought Content: No Suicidal ideation, No Homicidal ideation, No Overt delusions Perceptual Disturbances: No Auditory hallucinations, No Visual hallucinations Attention Span Ability: Capable of Focused Attention Memory Description: Grossly Intact Patient Reliability: Reliable Historian Fund of knowledge: Yes abstraction ability, Yes aware of current events Intelligence Estimate: Average Judgment: Limited Insight: Partial Hospital Course Hospital course: Ms. Acosta is a 58 year old female who was admitted secondary to SI. Client reports she always gets suicidal when she has to stop her Celexa. Ran out of SSRI approx a week ago and could not get it refilled as her insurance said she was too early for a refill. Arlene restarted on inpatient unit and client reports she now feels fine. 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 Denies SI/HI/AH/VH. Colorful personality. Likely impulsive at times but client states she would definitely seek out help if SI returns. Claims that she is stable provided she has her medication. No evidence of psychosis. Has a roommate and nine dogs for support. Gets her medication through her PCP but willing to be linked with services. Will have social work follow up with her on Monday. - Time Spent with Patient Total time spent providing and/or coordinating discharge services: Assessment and Plan - Patient/Caregiver Discharge Instructions Activity: resume usual activities as tolerated Diet: regular diet - Follow up Plan Follow up with: [facility] [Outside] () Functional capacity at discharge: independent ambulation Overall status at discharge: Stable Disposition: Home, Self-Care Quality - Multiple Antipsychotics Patient discharged on 2 or more antipsychotic medications: No Procedures - Procedures Procedures: Medication Management, Crisis Stabilization, Supportive Therapy, Group Therapy
== END 2018-10-06 14:50 | disposition home or self-care (01) | DRG 885 ==
LOC: EMEROOARM 19:42 → 1ANU 21:38
PROVIDERS: ADMIT General Practice; ATTEND General Practice

== ENCOUNTER 2019-05-15 23:39 | Observation (INO) ==
[2019-05-16 01:08] LABS: Bacteria,Urine Many per hpf (None-Few); Hyaline Casts,Urine None Seen per lpf (None-Few); Squamous Epithelial Cell,Urine Moderate per lpf (None-Few); WBC,Urine TNTC per hpf (0-3)
[2019-05-16 01:09] LABS: Bilirubin,Urine Negative (Negative); Blood,Urine Trace-lysed (Negative); Clarity,Urine Clear (Clear); Color,Urine Yellow (Yellow); Glucose,Urine (UA) Normal (Normal); Ketones,Urine Trace mg/dL (Negative); Leukocyte Esterase,Urine Moderate (Negative); Nitrite,Urine Positive (Negative); Protein,Urine 30 mg/dL (Neg-Trace); Urobilinogen,Urine Normal (Normal)
[2019-05-16] MEDS ORDERED: 0.9 % Sodium Chloride 1,000 ML IVC ONE (02:47)
[2019-05-16] MEDS ORDERED: Piperacillin/Tazobactam 3.375 GM in 0.9 % Sodium Chloride Mini Bag 100 ML IVPB ONE (02:50)
[2019-05-16 02:58] LABS: Basophils # 0.1 K/mcL (0.0-0.2); Basophils % 0.8 %; Eosinophils # 0.4 K/mcL (0.0-0.6); Eosinophils % 4.7 %; Hematocrit 39.5 % (35.3-44.9); Hemoglobin 13.1 g/dL (11.5-15.4); Immature Granulocytes % 0.3 % (0-4); Lymphocytes # 3.5 K/mcL (0.6-4.6); Lymphocytes % 39.2 %; Mean Corpuscular HGB Conc 33.2 g/dL (31.6-35.5); Mean Corpuscular Hemoglobin 31.7 pg (28.0-33.3); Mean Corpuscular Volume 95.6 fL (83.0-100.0); Mean Platelet Volume 9.6 fL (9.4-12.4); Monocytes # 0.7 K/mcL (0.0-1.3); Monocytes % 7.6 %; Neutrophils # 4.3 K/mcL (1.6-8.9); Platelet Count 239 K/mcL (140-400); Red Blood Count 4.13 M/mcL (3.82-4.97); Red Cell Distribution Width 13.1 % (11.5-14.5); Segmented Neutrophils % 47.4 %
[2019-05-16 03:16] LABS: BUN/Creatinine Ratio 17 (6-26); Blood Urea Nitrogen 15 mg/dL (6-20); Calcium 9.1 mg/dL (8.6-10.3); Carbon Dioxide 24 mEq/L (23-29); Chloride 110 mEq/L (98-107); Glucose 95 mg/dL (70-105); Osmolality,Calculated 291 (280-300); Potassium 4.2 mEq/L (3.5-5.1); Sodium 140 mEq/L (136-145); eGFR For African Americans > 60 (> 60); eGFR For Non-African Americans > 60 (> 60)
[2019-05-16] MEDS ORDERED: Naloxone 0.4 MG/ML INJ IVP PRN (04:39)
[2019-05-16] MEDS: *HR* Heparin 5,000 UNIT/ML VIAL SQ SCH ×2 (05:40→16:52)
[2019-05-16] MEDS: Piperacillin/Tazobactam 3.375 GM in 0.9 % Sodium Chloride Mini Bag 100 ML IVPB SCH ×2 (12:50→21:42)
[2019-05-16] MEDS ORDERED: Methocarbamol 750 MG TABLET PO PRN (14:04)
[2019-05-16] MEDS ORDERED: *HR* HYDROcodone/Acet 5/325 mg TABLET PO PRN (16:02)
[2019-05-16] MEDS: carvediloL 6.25 MG TABLET PO SCH (16:51)
[2019-05-16] MEDS: hydrOXYzine pamoate 25 MG CAPSULE PO PRN (20:30)
[2019-05-16] MEDS: Nicotine 7 MG PATCH.TD24 TD SCH (20:43)
[2019-05-16] MEDS ORDERED: (Mirabegron [Myrbetriq] 50 MG) PO SCH (21:00)
[2019-05-16] MEDS ORDERED: *HR* Digoxin 0.125 MG TABLET PO SCH (21:00)
[2019-05-16] MEDS ORDERED: CARVEDILOL 3.125 MG PO SCH (21:00)
[2019-05-16] MEDS ORDERED: lamoTRIgine 25 MG TABLET PO SCH (21:00)
[2019-05-17] MEDS: Piperacillin/Tazobactam 3.375 GM in 0.9 % Sodium Chloride Mini Bag 100 ML IVPB SCH (05:04)
[2019-05-17] MEDS: *HR* Heparin 5,000 UNIT/ML VIAL SQ SCH (05:04)
[2019-05-17] MEDS: hydrOXYzine pamoate 25 MG CAPSULE PO PRN (05:10)
[2019-05-17 08:09] VITALS: BP 92/54
[2019-05-17] MEDS: Nicotine 7 MG PATCH.TD24 TD SCH (08:16)
[2019-05-17] MEDS: carvediloL 6.25 MG TABLET PO SCH (08:16)
[2019-05-17] MEDS ORDERED: Aspirin Enteric Coated 81 MG Tablet PO SCH (09:00)
== END 2019-05-17 12:21 | disposition home or self-care (01) ==
LOC: EMEROOARM 23:39 → 3BNU 23:39 → SUATTDRO 05-16 03:52 → 3BNU 05-16 03:54
PROVIDERS: ADMIT Family Medicine; ATTEND Family Medicine

== ENCOUNTER 2019-06-03 23:46 | Inpatient (IN) ==
[2019-06-04 00:19] LABS: Basophils # 0.1 K/mcL (0.0-0.2); Basophils % 0.9 %; Eosinophils # 0.4 K/mcL (0.0-0.6); Eosinophils % 5.1 %; Hematocrit 39.2 % (35.3-44.9); Hemoglobin 13.1 g/dL (11.5-15.4); Immature Granulocytes % 0.2 % (0-4); Lymphocytes # 3.4 K/mcL (0.6-4.6); Lymphocytes % 42.5 %; Mean Corpuscular HGB Conc 33.4 g/dL (31.6-35.5); Mean Corpuscular Hemoglobin 31.7 pg (28.0-33.3); Mean Corpuscular Volume 94.9 fL (83.0-100.0); Mean Platelet Volume 9.7 fL (9.4-12.4); Monocytes # 0.7 K/mcL (0.0-1.3); Monocytes % 8.5 %; Neutrophils # 3.4 K/mcL (1.6-8.9); Platelet Count 248 K/mcL (140-400); Red Blood Count 4.13 M/mcL (3.82-4.97); Segmented Neutrophils % 42.8 %
[2019-06-04 00:27] LABS: Bilirubin,Urine Negative (Negative); Blood,Urine Negative (Negative); Clarity,Urine Clear (Clear); Color,Urine Yellow (Yellow); Glucose,Urine (UA) Normal (Normal); Ketones,Urine Negative (Negative); Leukocyte Esterase,Urine Small (Negative); Nitrite,Urine Negative (Negative); PH,Urine 6.5 pH Units (5.0-8.0); Protein,Urine Negative (Neg-Trace); Specific Gravity,Urine 1.017 (1.010-1.025); Urobilinogen,Urine Normal (Normal)
[2019-06-04 00:30] LABS: Bacteria,Urine None Seen per hpf (None-Few); Hyaline Casts,Urine None Seen per lpf (None-Few); RBC,Urine 0-3 per hpf (0-3); Squamous Epithelial Cell,Urine Moderate per lpf (None-Few)
[2019-06-04 00:48] LABS: Acetaminophen < 10 mcg/mL (10-20); BUN/Creatinine Ratio 16 (6-26); Blood Urea Nitrogen 13 mg/dL (6-20); Calcium 8.9 mg/dL (8.6-10.3); Carbon Dioxide 21 mEq/L (23-29); Chloride 110 mEq/L (98-107); Ethanol 11 mg/dL (Less than 10); Glucose 80 mg/dL (70-105); Osmolality,Calculated 287 (280-300); Potassium 3.8 mEq/L (3.5-5.1); Salicylate < 2.5 mg/dL (15.0-30.0); Sodium 139 mEq/L (136-145); eGFR For African Americans > 60 (> 60); eGFR For Non-African Americans > 60 (> 60)
[2019-06-04 01:18] LABS: Amphetamine Screen,Urine Negative ng/mL (Cutoff=1000); Barbiturate Screen,Urine Negative ng/mL (Cutoff=200); Benzodiazepines Screen,Urine Negative ng/mL (Cutoff=200); Cannabinoid Screen,Urine Negative ng/mL (Cutoff = 50); Cocaine Screen,Urine Negative ng/mL (Cutoff= 300); Opiate Screen,Urine Negative ng/mL (Cutoff=300); Phencyclidine Screen,Urine Negative ng/mL (Cutoff=25)
[2019-06-04] MEDS ORDERED: Haloperidol Lactate 5 MG/ML VIAL IM PRN (03:04)
[2019-06-04] MEDS ORDERED: *HR* LORazepam 1 MG TABLET PO PRN (03:04)
[2019-06-04] MEDS ORDERED: *HR* LORazepam 2 MG/ML VIAL IM PRN (03:04)
[2019-06-04] MEDS ORDERED: traZODone 50 MG TABLET PO PRN (03:04)
[2019-06-04] MEDS ORDERED: Mag Hydrox/Al Hydrox/Simeth 30 ML UDC PO PRN (03:04)
[2019-06-04] MEDS ORDERED: Acetaminophen 325 MG TABLET PO PRN (03:04)
[2019-06-04] MEDS ORDERED: MOM Conc 10 ML UD.LIQ PO PRN (03:04)
[2019-06-04] MEDS ORDERED: Aspirin 325 MG TABLET PO PRN (10:13)
[2019-06-04] MEDS: hydrOXYzine pamoate 25 MG CAPSULE PO PRN ×2 (16:18→20:54)
[2019-06-04] MEDS ORDERED: rOPINIRole 1 MG TABLET PO SCH ×2 (18:45→21:00)
[2019-06-04] MEDS ORDERED: NON-FORMULARY MEDICATION 1 EACH EACH (Mirabegron [Myrbetriq] 50 MG) PO SCH (21:00)
[2019-06-04] MEDS ORDERED: hydrOXYzine pamoate 25 MG CAPSULE PO SCH (21:00)
[2019-06-04] MEDS ORDERED: *HR* Digoxin 0.125 MG TABLET PO SCH (21:00)
[2019-06-05 09:27] VITALS: BP 109/77
== END 2019-06-05 12:20 | disposition home or self-care (01) | DRG 885 ==
LOC: EMEROOARM 23:46 → 1ANU 06-04 02:56
PROVIDERS: ADMIT Psychiatry & Neurology Psychiatry; ATTEND Psychiatry & Neurology Psychiatry

== ENCOUNTER 2019-10-07 01:39 | Observation (INO) ==
[2019-10-07 02:15] LABS: Basophils # 0.1 K/mcL (0.0-0.2); Basophils % 0.7 %; Eosinophils # 0.4 K/mcL (0.0-0.6); Eosinophils % 4.6 %; Hemoglobin 13.5 g/dL (11.5-15.4); Immature Granulocytes % 0.1 % (0-4); Lymphocytes # 3.4 K/mcL (0.6-4.6); Lymphocytes % 41.4 %; Mean Corpuscular HGB Conc 32.9 g/dL (31.6-35.5); Mean Corpuscular Hemoglobin 31.5 pg (28.0-33.3); Mean Corpuscular Volume 95.6 fL (83.0-100.0); Monocytes # 0.6 K/mcL (0.0-1.3); Monocytes % 6.7 %; Neutrophils # 3.8 K/mcL (1.6-8.9); Platelet Count 221 K/mcL (140-400); Red Blood Count 4.29 M/mcL (3.82-4.97); Red Cell Distribution Width 12.7 % (11.5-14.5); Segmented Neutrophils % 46.5 %; White Blood Count 8.3 K/mcL (4.3-11.1)
[2019-10-07 02:29] LABS: Bilirubin,Urine Negative (Negative); Blood,Urine Negative (Negative); Clarity,Urine Cloudy (Clear); Color,Urine Yellow (Yellow); Glucose,Urine (UA) Normal (Normal); Ketones,Urine Negative (Negative); Leukocyte Esterase,Urine Large (Negative); Nitrite,Urine Negative (Negative); PH,Urine 6.5 pH Units (5.0-8.0); Protein,Urine Negative (Neg-Trace); Specific Gravity,Urine 1.027 (1.010-1.025); Urobilinogen,Urine Normal (Normal)
[2019-10-07 02:31] LABS: Bacteria,Urine None Seen per hpf (None-Few); Hyaline Casts,Urine None Seen per lpf (None-Few); Squamous Epithelial Cell,Urine Many per lpf (None-Few)
[2019-10-07 02:34] LABS: Acetaminophen < 10 mcg/mL (10-20); BUN/Creatinine Ratio 14 (6-26); Blood Urea Nitrogen 12 mg/dL (6-20); Calcium 8.8 mg/dL (8.6-10.3); Carbon Dioxide 21 mEq/L (23-29); Chloride 113 mEq/L (98-107); Ethanol < 10 mg/dL (Less than 10); Glucose 102 mg/dL (70-105); Osmolality,Calculated 292 (280-300); Potassium 3.7 mEq/L (3.5-5.1); Salicylate < 2.5 mg/dL (15.0-30.0); Sodium 141 mEq/L (136-145); eGFR For African Americans > 60 (> 60); eGFR For Non-African Americans > 60 (> 60)
[2019-10-07 02:41] LABS: Amphetamine Screen,Urine Negative ng/mL (Cutoff=1000); Barbiturate Screen,Urine Negative ng/mL (Cutoff=200); Benzodiazepines Screen,Urine Negative ng/mL (Cutoff=200); Cannabinoid Screen,Urine Negative ng/mL (Cutoff = 50); Cocaine Screen,Urine Negative ng/mL (Cutoff= 300); Opiate Screen,Urine Negative ng/mL (Cutoff=300); Phencyclidine Screen,Urine Negative ng/mL (Cutoff=25)
[2019-10-07] MEDS ORDERED: Haloperidol Lactate 5 MG/ML VIAL IM PRN (04:53)
[2019-10-07] MEDS ORDERED: Mag Hydrox/Al Hydrox/Simeth 30 ML UDC PO PRN (04:53)
[2019-10-07] MEDS ORDERED: Acetaminophen 325 MG TABLET PO PRN (04:53)
[2019-10-07] MEDS ORDERED: hydrOXYzine pamoate 25 MG CAPSULE PO PRN (04:53)
[2019-10-07] MEDS ORDERED: *HR* LORazepam 2 MG/ML VIAL IM PRN (04:53)
[2019-10-07] MEDS ORDERED: *HR* LORazepam 1 MG TABLET PO PRN (04:53)
[2019-10-07] MEDS ORDERED: traZODone 50 MG TABLET PO PRN (04:53)
[2019-10-07] MEDS: carvediloL 6.25 MG TABLET PO SCH (18:15)
[2019-10-07] MEDS ORDERED: traZODone 50 MG TABLET PO SCH (21:00)
[2019-10-07] MEDS ORDERED: rOPINIRole 1 MG TABLET PO SCH (21:00)
[2019-10-08] MEDS ORDERED: *HR* Digoxin 0.125 MG TABLET PO SCH (09:00)
[2019-10-08] MEDS: carvediloL 6.25 MG TABLET PO SCH (09:15)
[2019-10-08 10:30] VITALS: BP 96/53
== END 2019-10-08 15:40 | disposition home or self-care (01) ==
LOC: EMEROOARM 01:39 → 1ANU 01:39
PROVIDERS: ADMIT Psychiatry & Neurology Forensic Psychiatry; ATTEND Psychiatry & Neurology Forensic Psychiatry

== ENCOUNTER 2020-06-02 18:59 | Observation (INO) ==
[2020-06-02 19:11] VITALS: BP 122/72
[2020-06-02] MEDS ORDERED: Aspirin 81 MG TAB.CHEW PO ONE (19:19)
[2020-06-02 20:20] LABS: Basophils # 0.1 K/mcL (0.0-0.2); Basophils % 0.9 %; Eosinophils # 0.3 K/mcL (0.0-0.6); Eosinophils % 3.8 %; Hemoglobin 13.2 g/dL (11.5-15.4); Immature Granulocytes % 0.2 % (0-4); Lymphocytes # 2.7 K/mcL (0.6-4.6); Lymphocytes % 40.2 %; Mean Corpuscular Hemoglobin 31.1 pg (28.0-33.3); Mean Corpuscular Volume 94.1 fL (83.0-100.0); Mean Platelet Volume 9.2 fL (9.4-12.4); Monocytes # 0.5 K/mcL (0.0-1.3); Monocytes % 7.6 %; Neutrophils # 3.1 K/mcL (1.6-8.9); Platelet Count 237 K/mcL (140-400); Red Blood Count 4.25 M/mcL (3.82-4.97); Red Cell Distribution Width 13.5 % (11.5-14.5); Segmented Neutrophils % 47.3 %; White Blood Count 6.6 K/mcL (4.3-11.1)
[2020-06-02 20:21] LABS: INR 0.9; Prothrombin Time 9.9 Seconds (9.4-12.1)
[2020-06-02 20:39] LABS: BUN/Creatinine Ratio 21 (6-26); Blood Urea Nitrogen 18 mg/dL (6-20); Calcium 9.2 mg/dL (8.6-10.3); Carbon Dioxide 21 mEq/L (23-29); Chloride 108 mEq/L (98-107); Glucose 86 mg/dL (70-105); Osmolality,Calculated 285 (280-300); Sodium 137 mEq/L (136-145); Troponin I < 0.03 ng/mL (< 0.04); eGFR For African Americans > 60 (> 60); eGFR For Non-African Americans > 60 (> 60)
[2020-06-02 21:38] LABS: Digoxin < 0.3 ng/mL (0.8-2.0)
[2020-06-02] MEDS ORDERED: *HR* FentaNYL (PF) 100 MCG/2 ML VIAL IVP ONE (21:58)
[2020-06-02] MEDS ORDERED: rOPINIRole 1 MG, rOPINIRole 3 MG PO ONE (22:15)
[2020-06-02] MEDS ORDERED: *HR* LORazepam 2 MG/ML VIAL IVP ONE (23:58)
[2020-06-03 02:19] LABS: Adenovirus Not Detected (Not Detect); Coronavirus 229E Not Detected (Not Detect); Coronavirus HKU1 Not Detected (Not Detect); Coronavirus NL63 Not Detected (Not Detect); Coronavirus OC43 Not Detected (Not Detect)
[2020-06-03 02:20] LABS: Bordetella Pertussis Not Detected (Not Detect); Chlamydophila pneumoniae Not Detected (Not Detect); Human Metapneumovirus Not Detected (Not Detect); Human Rhinovirus/Enterovirus Not Detected (Not Detect); Influenza A Subtype 2009 H1 Not Detected (Not Detect); Influenza B Not Detected (Not Detect); Mycoplasma pneumoniae Not Detected (Not Detect); Parainfluenza Virus 1 Not Detected (Not Detect); Parainfluenza Virus 2 Not Detected (Not Detect); Parainfluenza Virus 3 Not Detected (Not Detect); Parainfluenza Virus 4 Not Detected (Not Detect); Respiratory Syncytial Virus Not Detected (Not Detect)
== END 2020-06-03 01:15 | disposition left against medical advice (07) ==
LOC: EMEROOARM 18:59 → 2NENU 18:59
PROVIDERS: ADMIT Internal Medicine; ATTEND Internal Medicine

== ENCOUNTER 2020-06-03 01:27 | Observation (INO) ==
[2020-06-03 03:44] LABS: Basophils # 0.1 K/mcL (0.0-0.2); Basophils % 0.8 %; Eosinophils # 0.3 K/mcL (0.0-0.6); Eosinophils % 4.7 %; Hematocrit 43.9 % (35.3-44.9); Immature Granulocytes % 0.5 % (0-4); Lymphocytes # 2.8 K/mcL (0.6-4.6); Lymphocytes % 42.2 %; Mean Corpuscular HGB Conc 31.9 g/dL (31.6-35.5); Mean Corpuscular Hemoglobin 30.4 pg (28.0-33.3); Mean Corpuscular Volume 95.2 fL (83.0-100.0); Mean Platelet Volume 9.2 fL (9.4-12.4); Monocytes # 0.5 K/mcL (0.0-1.3); Neutrophils # 2.9 K/mcL (1.6-8.9); Platelet Count 255 K/mcL (140-400); Red Blood Count 4.61 M/mcL (3.82-4.97); Red Cell Distribution Width 13.5 % (11.5-14.5); Segmented Neutrophils % 43.8 %; White Blood Count 6.6 K/mcL (4.3-11.1)
[2020-06-03 04:04] LABS: Acetaminophen < 10 mcg/mL (10-20); BUN/Creatinine Ratio 20 (6-26); Blood Urea Nitrogen 19 mg/dL (6-20); Calcium 9.5 mg/dL (8.6-10.3); Carbon Dioxide 25 mEq/L (23-29); Chloride 107 mEq/L (98-107); Chol/HDL Ratio 3.2 (0-4.9); Cholesterol 237 mg/dL (< 200); Ethanol < 10 mg/dL (Less than 10); Glucose 85 mg/dL (70-105); HDL Cholesterol 73 mg/dL (40-59); LDL Cholesterol,Calculated 129 mg/dL (< 100); Osmolality,Calculated 292 (280-300); Potassium 3.7 mEq/L (3.5-5.1); Salicylate < 2.5 mg/dL (15.0-30.0); Sodium 140 mEq/L (136-145); Triglycerides 174 mg/dL (< 150); eGFR For African Americans > 60 (> 60); eGFR For Non-African Americans > 60 (> 60)
[2020-06-03 04:09] LABS: Amorphous Sediment,Urine Few per hpf (None-Few); Bacteria,Urine Moderate per hpf (None-Few); Bilirubin,Urine Negative (Negative); Blood,Urine Negative (Negative); Budding Yeast,Urine Few per hpf (None Seen); Clarity,Urine Turbid (Clear); Color,Urine Light-Yellow (Yellow); Glucose,Urine (UA) Normal (Normal); Ketones,Urine Negative (Negative); Leukocyte Esterase,Urine Large (Negative); Mucus,Urine Few per lpf (None-Few); Nitrite,Urine Negative (Negative); Protein,Urine Negative (Neg-Trace); RBC,Urine 0-3 per hpf (0-3); Specific Gravity,Urine 1.022 (1.010-1.025); Urobilinogen,Urine Normal (Normal); WBC,Urine 30-50 per hpf (0-3)
[2020-06-03 04:15] LABS: Amphetamine Screen,Urine Negative ng/mL (Cutoff=1000); Barbiturate Screen,Urine Negative ng/mL (Cutoff=200); Benzodiazepines Screen,Urine Negative ng/mL (Cutoff=200); Cannabinoid Screen,Urine Negative ng/mL (Cutoff = 50); Cocaine Screen,Urine Negative ng/mL (Cutoff= 300); Opiate Screen,Urine Negative ng/mL (Cutoff=300); Phencyclidine Screen,Urine Negative ng/mL (Cutoff=25)
[2020-06-03 05:26] LABS: Thyroid Stimulating Hormone 4.073 mcIU/mL (0.340-5.600)
[2020-06-03 10:34] LABS: Estimated Average Glucose 117 mg/dl
[2020-06-03] MEDS ORDERED: Naloxone 0.4 MG/ML INJ IVP PRN (10:46)
[2020-06-03] MEDS ORDERED: Nitroglycerin 0.4 MG TAB.SUBL SL PRN ×2 (10:47→12:10)
[2020-06-03] MEDS ORDERED: Isovue-370 500 ML BOTTLE IVP ONE (10:47)
[2020-06-03] MEDS ORDERED: *HR* Metoprolol 5 MG/5 ML VIAL IVP PRN ×2 (10:47)
[2020-06-03] MEDS ORDERED: 0.9 % Sodium Chloride 1,000 ML IVC SCH (11:00)
[2020-06-03] MEDS ORDERED: Perflutren Lipid Microsphere 1.3 ML in 0.9 % Sodium Chloride 8.7 ML IVP PRN (11:46)
[2020-06-03] MEDS ORDERED: traZODone 50 MG TABLET PO PRN (12:10)
[2020-06-03] MEDS ORDERED: Sucralfate 1 GM TABLET PO SCH (12:15)
[2020-06-03 12:17] VITALS: BP 96/53
[2020-06-03] MEDS ORDERED: Ketorolac 15 MG/ML VIAL IVP PRN (13:53)
[2020-06-03] MEDS ORDERED: *HR* LORazepam 0.5 MG TABLET PO PRN (14:57)
[2020-06-03] MEDS ORDERED: rOPINIRole 1 MG TABLET PO SCH (21:00)
[2020-06-03] MEDS ORDERED: *HR* Digoxin 0.125 MG TABLET PO SCH (21:00)
[2020-06-03] MEDS ORDERED: carvediloL 6.25 MG TABLET PO SCH (21:00)
[2020-06-04] MEDS ORDERED: Aspirin 81 MG TAB.CHEW PO SCH (09:00)
== END 2020-06-03 15:33 | disposition home or self-care (01) ==
LOC: 3BNU 01:27 → EMEROOARM 01:27 → 3BNU 11:48
PROVIDERS: ADMIT Internal Medicine; ATTEND Internal Medicine

== ENCOUNTER 2020-06-03 17:13 | Observation (INO) ==
[2020-06-03] MEDS ORDERED: Isovue-370 500 ML BOTTLE IVP ONE (17:28)
[2020-06-03 17:56] LABS: Basophils # 0.1 K/mcL (0.0-0.2); Basophils % 0.7 %; Eosinophils # 0.2 K/mcL (0.0-0.6); Eosinophils % 3.1 %; Hemoglobin 13.8 g/dL (11.5-15.4); Immature Granulocytes % 0.1 % (0-4); Lymphocytes # 2.7 K/mcL (0.6-4.6); Lymphocytes % 36.1 %; Mean Corpuscular HGB Conc 32.9 g/dL (31.6-35.5); Mean Corpuscular Hemoglobin 31.5 pg (28.0-33.3); Mean Corpuscular Volume 95.9 fL (83.0-100.0); Monocytes # 0.6 K/mcL (0.0-1.3); Monocytes % 7.5 %; Platelet Count 259 K/mcL (140-400); Red Blood Count 4.38 M/mcL (3.82-4.97); Red Cell Distribution Width 13.5 % (11.5-14.5); Segmented Neutrophils % 52.5 %; White Blood Count 7.5 K/mcL (4.3-11.1)
[2020-06-03 18:13] LABS: Alanine Aminotransferase 14 Units/L (7-52); Albumin 4.2 g/dL (3.5-5.7); Albumin/Globulin Ratio 1.7 (1.1-2.2); Alkaline Phosphatase 99 Units/L (34-104); Aspartate Amino Transferase 14 Units/L (13-39); BUN/Creatinine Ratio 24 (6-26); Bilirubin,Total 0.4 mg/dL (0.3-1.0); Blood Urea Nitrogen 20 mg/dL (6-20); Calcium 9.5 mg/dL (8.6-10.3); Carbon Dioxide 22 mEq/L (23-29); Chloride 107 mEq/L (98-107); Globulin 2.5 g/dL (2.4-3.5); Glucose 86 mg/dL (70-105); Osmolality,Calculated 284 (280-300); Potassium 4.1 mEq/L (3.5-5.1); Sodium 136 mEq/L (136-145); Total Protein 6.7 g/dL (6.4-8.9); Troponin I < 0.03 ng/mL (< 0.04); eGFR For African Americans > 60 (> 60); eGFR For Non-African Americans > 60 (> 60)
[2020-06-03 18:20] LABS: INR 0.9; Prothrombin Time 10.6 Seconds (9.4-12.1)
[2020-06-03] MEDS ORDERED: Aspirin Enteric Coated 325 MG Tablet PO ONE (22:49)
[2020-06-03] MEDS ORDERED: Nitroglycerin 0.4 MG TAB.SUBL SL PRN (22:50)
[2020-06-03] MEDS ORDERED: Perflutren Lipid Microsphere 1.3 ML in 0.9 % Sodium Chloride 8.7 ML IVP PRN (23:18)
[2020-06-03] MEDS ORDERED: Famotidine 20 MG/2 ML VIAL IVP SCH (23:19)
[2020-06-03] MEDS ORDERED: Acetaminophen 325 MG TABLET PO ONE (23:27)
[2020-06-03] MEDS ORDERED: Naloxone 0.4 MG/ML INJ IVP PRN (23:46)
[2020-06-03 23:55] LABS: Amphetamine Screen,Urine Negative ng/mL (Cutoff=1000); Barbiturate Screen,Urine Negative ng/mL (Cutoff=200); Benzodiazepines Screen,Urine Negative ng/mL (Cutoff=200); Cannabinoid Screen,Urine Negative ng/mL (Cutoff = 50); Cocaine Screen,Urine Negative ng/mL (Cutoff= 300); Opiate Screen,Urine Negative ng/mL (Cutoff=300); Phencyclidine Screen,Urine Negative ng/mL (Cutoff=25)
[2020-06-04] MEDS: *HR* Heparin 5,000 UNIT/ML VIAL SQ SCH ×3 (00:01→15:13)
[2020-06-04 00:42] LABS: Hemoglobin 13.8 g/dL (11.5-15.4); Mean Corpuscular HGB Conc 32.9 g/dL (31.6-35.5); Mean Corpuscular Hemoglobin 32.2 pg (28.0-33.3); Mean Corpuscular Volume 97.9 fL (83.0-100.0); Mean Platelet Volume 9.1 fL (9.4-12.4); Platelet Count 232 K/mcL (140-400); Red Blood Count 4.29 M/mcL (3.82-4.97); Red Cell Distribution Width 13.5 % (11.5-14.5); White Blood Count 5.8 K/mcL (4.3-11.1)
[2020-06-04 00:59] LABS: Magnesium 2.1 mg/dL (1.6-2.6); Phosphorous 3.7 mg/dL (2.7-4.5)
[2020-06-04 01:00] LABS: Chol/HDL Ratio 3.4 (0-4.9)
[2020-06-04 01:01] LABS: BUN/Creatinine Ratio 20 (6-26); Blood Urea Nitrogen 20 mg/dL (6-20); Calcium 8.8 mg/dL (8.6-10.3); Carbon Dioxide 23 mEq/L (23-29); Chloride 108 mEq/L (98-107); Glucose 104 mg/dL (70-105); Osmolality,Calculated 291 (280-300); Potassium 3.7 mEq/L (3.5-5.1); Sodium 139 mEq/L (136-145); eGFR For African Americans > 60 (> 60); eGFR For Non-African Americans 57 (> 60)
[2020-06-04 01:14] LABS: Thyroid Stimulating Hormone 2.603 mcIU/mL (0.340-5.600)
[2020-06-04] MEDS ORDERED: *HR* LORazepam 2 MG/ML VIAL IVP ONE (05:51)
[2020-06-04] MEDS ORDERED: Regadenoson 0.4 MG/5 ML SYRINGE IVP ONE (06:01)
[2020-06-04 08:17] LABS: Troponin I < 0.03 ng/mL (< 0.04)
[2020-06-04] MEDS ORDERED: Famotidine 20 MG/2 ML VIAL IVP SCH (10:56)
[2020-06-04 11:38] VITALS: BP 107/57
== END 2020-06-04 15:14 | disposition home or self-care (01) ==
LOC: 3BNU 17:13 → EMEROOARM 17:13 → SUATTDRO 21:17 → 3BNU 21:33
PROVIDERS: ADMIT Student in an Organized Health Care Education/Training Program; ATTEND Nurse Practitioner Adult Health

== ENCOUNTER 2020-10-20 00:47 | Inpatient (IN) ==
[2020-10-20] MEDS ORDERED: Isovue-370 500 ML BOTTLE IVP ONE (01:03)
[2020-10-20 01:41] LABS: Hematocrit 42.8 % (35.3-44.9); Hemoglobin 14.2 g/dL (11.5-15.4); Mean Corpuscular HGB Conc 33.2 g/dL (31.6-35.5); Mean Corpuscular Volume 93.4 fL (83.0-100.0); Mean Platelet Volume 9.7 fL (9.4-12.4); Platelet Count 290 K/mcL (140-400); Red Blood Count 4.58 M/mcL (3.82-4.97); White Blood Count 9.6 K/mcL (4.3-11.1)
[2020-10-20 01:50] LABS: Prothrombin Time 11.3 Seconds (9.4-12.1)
[2020-10-20 01:52] LABS: Activated Partial Thrombo Time 29.5 Seconds (26.0-36.0)
[2020-10-20 02:16] LABS: BUN/Creatinine Ratio 28 (6-26); Blood Urea Nitrogen 24 mg/dL (8-23); Calcium 9.1 mg/dL (8.6-10.3); Carbon Dioxide 21 mEq/L (23-29); Chloride 108 mEq/L (98-107); Glucose 79 mg/dL (70-105); Osmolality,Calculated 291 (280-300); Potassium 3.8 mEq/L (3.5-5.1); Sodium 139 mEq/L (136-145); Troponin I < 0.03 ng/mL (< 0.04); eGFR For African Americans > 60 (> 60); eGFR For Non-African Americans > 60 (> 60)
[2020-10-20] MEDS ORDERED: Naloxone 0.4 MG/ML INJ IVP PRN (04:13)
[2020-10-20] MEDS: 0.9 % Sodium Chloride 1,000 ML IVC SCH ×2 (05:03→11:27)
[2020-10-20] MEDS ORDERED: Perflutren Lipid Microsphere 1.3 ML in 0.9 % Sodium Chloride 8.7 ML IVP PRN (06:00)
[2020-10-20] MEDS ORDERED: Acetaminophen 325 MG TABLET PO PRN (06:02)
[2020-10-20 07:19] LABS: Basophils # 0.1 K/mcL (0.0-0.2); Basophils % 0.8 %; Eosinophils # 0.4 K/mcL (0.0-0.6); Eosinophils % 4.5 %; Hematocrit 37.1 % (35.3-44.9); Immature Granulocytes % 0.3 % (0-4); Lymphocytes # 2.9 K/mcL (0.6-4.6); Lymphocytes % 33.7 %; Mean Corpuscular HGB Conc 32.1 g/dL (31.6-35.5); Mean Corpuscular Hemoglobin 30.1 pg (28.0-33.3); Mean Corpuscular Volume 93.9 fL (83.0-100.0); Mean Platelet Volume 9.7 fL (9.4-12.4); Monocytes # 0.9 K/mcL (0.0-1.3); Neutrophils # 4.4 K/mcL (1.6-8.9); Platelet Count 245 K/mcL (140-400); Red Blood Count 3.95 M/mcL (3.82-4.97); Red Cell Distribution Width 13.1 % (11.5-14.5); Segmented Neutrophils % 50.7 %; White Blood Count 8.7 K/mcL (4.3-11.1)
[2020-10-20 07:20] LABS: Hemoglobin 11.9 g/dL (11.5-15.4)
[2020-10-20 07:41] LABS: Chol/HDL Ratio 3.1 (0-4.9); Estimated Average Glucose 117 mg/dl; Hemoglobin A1C 5.7 %
[2020-10-20 07:53] LABS: Thyroid Stimulating Hormone 4.497 mcIU/mL (0.340-5.600)
[2020-10-20 08:00] LABS: Alanine Aminotransferase 11 Units/L (7-52); Albumin 3.3 g/dL (3.5-5.7); Alkaline Phosphatase 90 Units/L (34-104); Aspartate Amino Transferase 12 Units/L (13-39); BUN/Creatinine Ratio 31 (6-26); Blood Urea Nitrogen 21 mg/dL (8-23); Calcium 7.8 mg/dL (8.6-10.3); Carbon Dioxide 20 mEq/L (23-29); Chloride 113 mEq/L (98-107); Glucose 92 mg/dL (70-105); Magnesium 1.8 mg/dL (1.6-2.6); Osmolality,Calculated 293 (280-300); Phosphorous 3.8 mg/dL (2.7-4.5); Potassium 3.6 mEq/L (3.5-5.1); Sodium 140 mEq/L (136-145); Troponin I < 0.03 ng/mL (< 0.04); eGFR For African Americans > 60 (> 60); eGFR For Non-African Americans > 60 (> 60)
[2020-10-20 08:56] LABS: Albumin/Globulin Ratio 1.7 (1.1-2.2); Bilirubin,Total 0.2 mg/dL (0.3-1.0); Globulin 1.9 g/dL (2.4-3.5); Total Protein 5.2 g/dL (6.4-8.9)
[2020-10-20] MEDS: Ondansetron 4 MG/2 ML VIAL IVP PRN ×2 (11:30→19:18)
[2020-10-20] MEDS ORDERED: rOPINIRole 1 MG TABLET PO SCH (21:00)
[2020-10-21] MEDS ORDERED: 0.9 % Sodium Chloride 500 ML IVC ONE (10:37)
[2020-10-21] MEDS: Ondansetron 4 MG/2 ML VIAL IVP PRN ×2 (11:32→21:19)
[2020-10-21 11:53] LABS: Bacteria,Urine Many per hpf (None-Few); Bilirubin,Urine Negative (Negative); Blood,Urine Negative (Negative); Clarity,Urine Clear (Clear); Color,Urine Light-Yellow (Yellow); Glucose,Urine (UA) Normal (Normal); Ketones,Urine Negative (Negative); Leukocyte Esterase,Urine Large (Negative); Mucus,Urine Few per lpf (None-Few); Nitrite,Urine Positive (Negative); PH,Urine 5.5 pH Units (5.0-8.0); Protein,Urine Negative (Neg-Trace); Specific Gravity,Urine 1.023 (1.010-1.025); Squamous Epithelial Cell,Urine Few per hpf (None-Few); Urobilinogen,Urine Normal (Normal); WBC,Urine TNTC per hpf (0-3)
[2020-10-21] MEDS: Ampicillin/Sulbactam 1,500 MG in 0.9 % Sodium Chloride Mini Bag 100 ML IVPB SCH ×3 (12:53→23:13)
[2020-10-21] MEDS: rOPINIRole 1 MG TABLET PO PRN (12:54)
[2020-10-21] MEDS ORDERED: 0.9 % Sodium Chloride 1,000 ML IVC SCH (16:00)
[2020-10-22] MEDS: rOPINIRole 1 MG TABLET PO PRN (03:01)
[2020-10-22] MEDS ORDERED: *HR* LORazepam 0.5 MG TABLET PO ONE (03:56)
[2020-10-22] MEDS: Ampicillin/Sulbactam 1,500 MG in 0.9 % Sodium Chloride Mini Bag 100 ML IVPB SCH (06:00)
[2020-10-22 10:47] VITALS: BP 97/60
[2020-10-22] MEDS ORDERED: Ampicillin/Sulbactam 1,500 MG in 0.9 % Sodium Chloride Mini Bag 100 ML IVPB ONE (12:00)
== END 2020-10-22 16:05 | disposition home health service (06) | DRG 312 ==
LOC: 2NNU 00:47 → EMEROOARM 00:47 → SUATTDRO 04:05 → 2NNU 04:16 → 2ANU 09:59
PROVIDERS: ADMIT Family Medicine; ATTEND Internal Medicine

== ENCOUNTER 2022-02-03 11:14 | Inpatient (IN) ==
[2022-02-03 12:09] LABS: Basophils # 0.1 K/mcL (0.0-0.2); Basophils % 0.8 %; Eosinophils # 0.4 K/mcL (0.0-0.6); Eosinophils % 5.2 %; Hematocrit 40.3 % (35.3-44.9); Hemoglobin 13.3 g/dL (11.5-15.4); Immature Granulocytes % 0.3 % (0-4); Lymphocytes # 2.7 K/mcL (0.6-4.6); Lymphocytes % 33.4 %; Mean Corpuscular Volume 93.9 fL (83.0-100.0); Mean Platelet Volume 9.6 fL (9.4-12.4); Monocytes # 0.7 K/mcL (0.0-1.3); Monocytes % 8.8 %; Neutrophils # 4.1 K/mcL (1.6-8.9); Platelet Count 263 K/mcL (140-400); Red Blood Count 4.29 M/mcL (3.82-4.97); Red Cell Distribution Width 13.4 % (11.5-14.5); Segmented Neutrophils % 51.5 %
[2022-02-03 12:16] LABS: Acetaminophen < 10 mcg/mL (10-20); BUN/Creatinine Ratio 24 (6-26); Blood Urea Nitrogen 19 mg/dL (8-23); Calcium 9.2 mg/dL (8.6-10.3); Carbon Dioxide 23 mEq/L (23-29); Chloride 107 mEq/L (98-107); Ethanol < 10 mg/dL (Less than 10); Glucose 82 mg/dL (70-105); Osmolality,Calculated 285 (280-300); Potassium 3.7 mEq/L (3.5-5.1); Salicylate < 2.5 mg/dL (15.0-30.0); Sodium 137 mEq/L (136-145); eGFR For African Americans > 60 (> 60); eGFR For Non-African Americans > 60 (> 60)
[2022-02-03 13:49] LABS: Amphetamine Screen,Urine Negative ng/mL (Cutoff=1000); Barbiturate Screen,Urine Negative ng/mL (Cutoff=200); Benzodiazepines Screen,Urine Negative ng/mL (Cutoff=200); Cannabinoid Screen,Urine Negative ng/mL (Cutoff = 50); Cocaine Screen,Urine Negative ng/mL (Cutoff= 300); Opiate Screen,Urine Negative ng/mL (Cutoff=300); Phencyclidine Screen,Urine Negative ng/mL (Cutoff=25)
[2022-02-03 14:05] LABS: Bacteria,Urine Few per hpf (None-Few); Bilirubin,Urine Negative (Negative); Blood,Urine Negative (Negative); Clarity,Urine Clear (Clear); Color,Urine Colorless (Yellow); Glucose,Urine (UA) Normal (Normal); Ketones,Urine Negative (Negative); Leukocyte Esterase,Urine Trace (Negative); Mucus,Urine Few per lpf (None-Few); Nitrite,Urine Positive (Negative); Protein,Urine Negative (Neg-Trace); RBC,Urine 0-3 per hpf (0-3); Specific Gravity,Urine 1.009 (1.010-1.025); Squamous Epithelial Cell,Urine Few per hpf (None-Few); Urobilinogen,Urine Normal (Normal); WBC,Urine 0-3 per hpf (0-3)
[2022-02-03 16:35] LABS: Influenza A PCR Negative (Negative); Influenza B PCR Negative (Negative); Resp. Syncytial Virus PCR Negative (Negative)
[2022-02-03 17:27] LABS: SARS-CoV-2 by PCR (In House) Negative (Negative)
[2022-02-03] MEDS ORDERED: Haloperidol Lactate 5 MG/ML VIAL IM PRN (17:49)
[2022-02-03] MEDS ORDERED: haloperidoL 5 MG TABLET PO PRN (17:49)
[2022-02-03] MEDS ORDERED: *HR* LORazepam 1 MG TABLET PO PRN (17:49)
[2022-02-03] MEDS ORDERED: hydrOXYzine pamoate 25 MG CAPSULE PO PRN (17:49)
[2022-02-03] MEDS ORDERED: *HR* LORazepam 2 MG/ML VIAL IM PRN (17:49)
[2022-02-03] MEDS ORDERED: Melatonin 3 MG TABLET PO SCH (21:00)
[2022-02-03] MEDS: rOPINIRole 1 MG TABLET PO SCH (21:09)
[2022-02-04] MEDS ORDERED: Aspirin 81 MG TAB.CHEW PO PRN (04:10)
[2022-02-04] MEDS ORDERED: Nicotine 21 MG PATCH.TD24 TD SCH (09:00)
[2022-02-04] MEDS ORDERED: Nicotine 2 MG GUM BC PRN (18:22)
[2022-02-04] MEDS: rOPINIRole 1 MG TABLET PO SCH (20:23)
[2022-02-05 05:26] LABS: Bacteria,Urine Few per hpf (None-Few); Bilirubin,Urine Negative (Negative); Blood,Urine Negative (Negative); Clarity,Urine Clear (Clear); Color,Urine Yellow (Yellow); Glucose,Urine (UA) Normal (Normal); Ketones,Urine Negative (Negative); Leukocyte Esterase,Urine Large (Negative); Mucus,Urine Few per lpf (None-Few); Nitrite,Urine Positive (Negative); PH,Urine 5.5 pH Units (5.0-8.0); Protein,Urine Trace mg/dL (Neg-Trace); RBC,Urine 0-3 per hpf (0-3); Specific Gravity,Urine 1.024 (1.010-1.025); Squamous Epithelial Cell,Urine Few per hpf (None-Few); Urobilinogen,Urine Normal (Normal); WBC,Urine 15-30 per hpf (0-3)
[2022-02-05] MEDS ORDERED: Aspirin Enteric Coated 325 MG Tablet PO PRN (10:04)
[2022-02-05 10:13] VITALS: BP 111/66; PULSE 57; TEMP 97.1; O2SAT 95
== END 2022-02-05 13:40 | disposition home or self-care (01) | DRG 885 ==
LOC: EMEROOARM 11:14 → 1ANU 18:05
PROVIDERS: ADMIT Psychiatry & Neurology Psychiatry; ATTEND Psychiatry & Neurology Psychiatry